=== PATIENT | male | born 1950 | race Caucasian/White ===

== ENCOUNTER 2019-07-03 15:23 | Emergency (ER) | payer OTHER ==
--- NOTE | 2019-07-03 16:11 | RAD REPORT ---
EXAM DESCRIPTION: CT - Head Brain Wo Cont - 07/03/2019 4:03 pm CLINICAL HISTORY: Fall, head and facial trauma COMPARISON: None. TECHNIQUE: Axial 5 mm thick images of the head were obtained without IV contrast. All CT scans are performed using dose optimization technique as appropriate and may include automated exposure control or mA/KV adjustment according to patient size. FINDINGS: No intracranial hemorrhage, mass, edema or shift of mid-line structures. No acute infarcti on changes seen. No abnormal extra-axial fluid collections. Ventricles are normal. Atrophy is minimal . Chronic ischemic changes are mild as well. Mastoid air cells are clear. Orbits, sinuses and facial bones are separately detailed. No acute bony findings. IMPRESSION: No acute intracranial finding. Atrophy is minimal and chronic ischemic changes are mild. Chronic ischemic change can mask nonhemorrhagic CVA. Based on history, acute CVA is not suspected.
--- NOTE | 2019-07-03 16:13 | RAD REPORT ---
EXAM DESCRIPTION: CT - Facial Bones W/ Mpr - 07/03/2019 4:04 pm CLINICAL HISTORY: Fall, head and face injury COMPARISON: None. TECHNIQUE: Axial 2 millimeter thick images of the facial bones were obtained with sagittal and coron al reconstruction imaging. All CT scans are performed using dose optimization technique as appropriate and may include automated exposure control or mA/KV adjustment according to patient size. FINDINGS: Mastoid air cells are clear. No skullbase fracture. Condyles of the mandible are normally positioned. No mandible fracture seen. There are no air-fluid levels in the paranasal sinuses. Globes and orbital contents are normal. Patient has a nondisplaced nasal bone fracture with contusion and edema changes to the overlying soft tissues. No foreign body. Nasal septum remains in the midline. IMPRESSION: Nondisplaced nasal bone fracture with overlying soft tissue contusion/ edema. No other significant finding.
[2019-07-03] MEDS ORDERED: BUPIVACAINE 0.5% PF 10 ML VIAL ONE (16:43)
[2019-07-03] MEDS ORDERED: LIDOCAINE 1% MPF 5 ML VIAL ONE (16:43)
--- NOTE | 2019-07-03 16:43 | RAD REPORT ---
EXAM DESCRIPTION: RAD - Humerus Left - 07/03/2019 3:58 pm CLINICAL HISTORY: Fall, arm and shoulder pain COMPARISON: None. FINDINGS: No fracture is identified. Degenerative cystic changes are present in the humeral head. No gross abnormality of the AC joint. Elbow joint degenerative changes are present. There is no disloca tion or periosteal reaction noted. No foreign body or other soft tissue abnormality. IMPRESSION: Degenerative change in the left arm as detailed. No fracture, dislocation or acute findi ng seen.
--- NOTE | 2019-07-03 16:45 | RAD REPORT ---
EXAM DESCRIPTION: RAD - Hand Left 3 View - 07/03/2019 4:01 pm CLINICAL HISTORY: Fall, left hand pain COMPARISON: None. FINDINGS: No acute fractures seen. No dislocation or periosteal reaction. Patient has degenerative c hange at the trapezial first metacarpal articulation as well is prominent degenerative change at the IP joint of the thumb. Degenerative change and possibly old trauma change at the DIP joint and distal phalanx fifth digit. Mild degenerative changes elsewhere in the MCP and IP joints of the hand. No fo reign body or other soft tissue abnormality. IMPRESSION: Left hand degenerative changes as detailed. No acute finding.
--- NOTE | 2019-07-03 17:33 | ER ---
Nurse's Notes [facility] Name: Luca Grimes Age: 69 yrs Sex: Male : 1950 Arrival Date: 07/03/2019 Time: 15:24 Bed 6 Private MD: Ochoa Anderson B Diagnosis: Fall on and from stairs and steps;Laceration without foreign body of left ring finger without damage to nail;Abrasion of nose;Fracture of nasal bones Presentation: 07/03 15:36 Presenting complaint: Patient states: fall off 1 step due to dog pulling leash, fell sr5 forward to ground. Denies LOC. Reports blood thinners, aspirin. c/o pain LEFT hand, LEFT shoulder, bridge of nose abrasion. Care prior to arrival: None. Mechanism of Injury: Fall down 1 steps. Trauma event details: Injury occurred in the [facility], Injury occurred: at home. Injury occurred: July 03, 2019 Injury occurred at: 15:00. 15:36 Acuity: MARY 2 sr5 15:36 Method Of Arrival: Wheelchair sr5 15:40 Transition of care: patient was not received from another setting of care. Onset of jl7 symptoms was July 03, 2019. Risk Assessment: Do you want to hurt yourself or someone else? Patient reports no desire to harm self or others. Initial Sepsis Screen: Does the patient meet any 2 criteria? No. Patient's initial sepsis screen is negative. Does the patient have a suspected source of infection? No. Patient's initial sepsis screen is negative. Trauma Activation: Alert Physician: ED Physician; Name: ; Notified At: ; Arrived At: Physician: General Surgeon; Name: ; Notified At: ; Arrived At: Physician: Radiology; Name: ; Notified At: ; Arrived At: Physician: Respiratory; Name: ; Notified At: ; Arrived At: Physician: Lab; Name: ; Notified At: ; Arrived At: Historical: - Allergies: 16:18 Codeine; jl7 - Home Meds: 16:18 Hydrochlorothiazide Oral [Active]; losartan oral oral [Active]; Metoprolol Tartrate jl7 Oral [Active]; aspirin 81 mg Oral chew [Active]; atorvastatin oral oral [Active]; duloxetine oral oral [Active]; tamsulosin 0.4 mg oral cp24 [Active]; Spironolactone Oral [Active]; Metformin Oral [Active]; - PMHx: 16:18 Hypertension; High Cholesterol; Diabetes - NIDDM; jl7 - Immunization history: Last tetanus immunization: - up to date. - Social history:: Smoking status: Patient/guardian denies using tobacco. - Ebola Screening: : No symptoms or risks identified at this time. Screenin:40 Abuse screen: Denies threats or abuse. Denies injuries from another. Tuberculosis jl7 screening: No symptoms or risk factors identified. 16:19 Nutritional screening: No deficits noted. Fall Risk Fall in past 12 months (25 points). jl7 Total White Fall Scale indicates Low Risk Score (25-44 pts). Fall prevention measures have been instituted. Side Rails Up X 2 Placed close to Nursing Station Frequent Obs/Assesments occuring Family Present and informed to notify staff if they need to leave bedside As available Patient and Family Educated on Fall Prevention Program and strategies. Primary Survey: 15:40 NO uncontrolled hemorrhage observed. A: Airway: patent. Breathing/Chest: Respiratory jl7 pattern: regular, Respiratory effort: spontaneous, unlabored, Chest inspection: symmetrical rise and fall of the chest. Circulation: Skin color: pink, Skin temperature: warm. Disability Alert. Exposure/Environment: There is no evidence of uncontrolled external bleeding. Obvious injury(ies) are noted at this time: laceration noted to bridge of nose and to tip of left ring finger. 15:55 Reassessment Breathing/Chest Respiratory pattern Regular Respiratory effort Spontaneous jl7 Unlabored Breath sounds Clear Chest inspection Symmetrical. Assessment: 15:36 General: Appears in no apparent distress. Behavior is calm, cooperative. Pain: sr5 Complains of pain in left hand, left arm and nose Pain currently is 8 out of 10 on a pain scale. 16:30 Reassessment: Patient appears in no apparent distress at this time. No changes from jl7 previously documented assessment. Patient and/or family updated on plan of care and expected duration. Pain level reassessed. Patient is alert, oriented x 3, equal unlabored respirations, skin warm/dry/pink. Vital Signs: 15:39 BP 153 / 86; Pulse 66; Resp 14; Temp 98.6; Pulse Ox 97% on R/A; Weight 113.4 kg (M); sr5 Height 6 ft. 3 in. (190.50 cm); Pain 8/10; 16:18 BP 118 / 85; Pulse 63; Resp 16 S; Pulse Ox 97% on R/A; Pain 5/10; jl7 17:14 BP 146 / 88; Pulse 56; Resp 16 S; Pulse Ox 96% on R/A; jl7 15:39 Body Mass Index 31.25 (113.40 kg, 190.50 cm) sr5 Roland Coma Score: 15:39 Eye Response: spontaneous(4). Verbal Response: oriented(5). Motor Response: obeys sr5 commands(6). Total: 15. 16:19 Eye Response: spontaneous(4). Verbal Response: oriented(5). Motor Response: obeys jl7 commands(6). Total: 15. 17:14 Eye Response: spontaneous(4). Verbal Response: oriented(5). Motor Response: obeys jl7 commands(6). Total: 15. Trauma Score (Adult): 15:39 Eye Response: spontaneous(1); Verbal Response: oriented(1); Motor Response: obeys sr5 commands(2); Systolic BP: > 89 mm Hg(4); Respiratory Rate: 10 to 29 per min(4); Carlee Score: 15; Trauma Score: 12 ED Course: 15:24 Patient arrived in ED. rg4 15:24 Ochoa Anderson MD is Private Physician. rg4 15:38 Triage completed. sr5 15:40 Patient has correct armband on for positive identification. Bed in low position. Call jl7 light in reach. Side rails up X 1. 15:40 Arm band placed on right wrist. jl7 15:40 Patient maintains SpO2 saturation greater than 95% on room air. Thermoregulation: pt jl7 refuses warm blanket at this time. 15:42 Elizabeth Leahy FNP-C is PHCP. kb 15:43 Franck Zhong MD is Attending Physician. kb 15:49 Kristin Hoover RN is Primary Nurse. jl7 15:59 Humerus Left XRAY In Process Unspecified. EDMS 15:59 Hand Left 3 View XRAY In Process Unspecified. EDMS 16:03 CT Head Brain wo Cont In Process Unspecified. EDMS 16:04 CT Facial Bones W/O Con In Process Unspecified. EDMS 17:00 Wound care: to abrasion, located on bridge of nose was cleaned with Hibiclens, dressed jl7 with Neosporin, band aid, Patient tolerated well. 17:47 Wound care: to located on proximal phalanx of left ring finger was dressed with tube em1 gauze. 18:06 Assist provider with laceration repair on palmar aspect of distal phalanx of left ring jl7 finger that was 2.5 cm. or less using sutures. Set up tray. Performed by Elizabeht GARRIDO Dressed with 4X4s, Patient tolerated well. Patient did not have IV access during this emergency room visit. Administered Medications: 17:00 Drug: Lidocaine (1 %) 5 mg {Note: administered by ASHLEY Johnson.} Volume: 5 ml; Route: jl7 Infiltration; 17:19 Follow up: Response: No adverse reaction jl7 17:00 Drug: Bupivacaine (0.5 %) 5 ml {Note: Administered by ASHLEY Johnson.} Volume: 10 ml; jl7 Route: Infiltration; 17:19 Follow up: Response: No adverse reaction jl7 18:06 Drug: Augmentin 875 mg Route: PO; jl7 18:06 Follow up: Response: Medication administered at discharge. jl7 Intake: 18:08 PO: 0ml; IV: 0ml; Tubes: 0ml (); Total: 0ml. jl7 Output: 18:08 Urine: 0ml; Gastric: 0ml; Stool: 0; EBL: 0ml; Drainage: 0ml; Other: 0; Total: 0ml. jl7 Outcome: 17:31 Discharge ordered by . shelbie 18:06 Discharged to home via wheelchair, with family. jl7 18:06 Condition: stable 18:06 Discharge instructions given to patient, family, Instructed on discharge instructions, follow up and referral plans. medication usage, Demonstrated understanding of instructions, follow-up care, medications, Prescriptions given X 1. 18:08 Patient's length of stay was not longer than 2 hours. jl7 18:08 Patient left the ED. jl7 Signatures: Dispatcher [employer] EDMS Elizabeth Leahy FNP-C FNP-Ckb Martinez, Eric em1 Greg Newberry, RN RN Neyda Infante4 Kristin Hoover RN RN jl7
--- NOTE | 2019-07-03 17:34 | EDPHYS ---
Physician Documentation [facility] Name: Luca Grimes Age: 69 yrs Sex: Male : 1950 Arrival Date: 07/03/2019 Time: 15:24 Bed 6 Private MD: Ochoa Anderson B ED Physician Franck Zhong HPI: 07/03 17:11 This 69 yrs old Male presents to ER via Wheelchair with complaints of Fall kb Injury. 17:11 Details of fall: The patient fell from a height, down approximately 1 stairs. Onset: kb The symptoms/episode began/occurred just prior to arrival. Associated injuries: The patient sustained injury to the head, abrasion, pain, palmar aspect of distal phalanx of left ring finger, laceration. Severity of symptoms: At their worst the symptoms were mild, in the emergency department the symptoms are unchanged. The patient has not experienced similar symptoms in the past. The patient has not recently seen a physician. Pt reports he was taking the dog out for a walk and it pulled the leash causing him to fall. Reports abrasion to nose, laceration to left ring finger. Historical: - Allergies: 16:18 Codeine; jl7 - Home Meds: 16:18 Hydrochlorothiazide Oral [Active]; losartan oral oral [Active]; Metoprolol Tartrate jl7 Oral [Active]; aspirin 81 mg Oral chew [Active]; atorvastatin oral oral [Active]; duloxetine oral oral [Active]; tamsulosin 0.4 mg oral cp24 [Active]; Spironolactone Oral [Active]; Metformin Oral [Active]; - PMHx: 16:18 Hypertension; High Cholesterol; Diabetes - NIDDM; jl7 - Immunization history: Last tetanus immunization: - up to date. - Social history:: Smoking status: Patient/guardian denies using tobacco. - Ebola Screening: : No symptoms or risks identified at this time. ROS: 16:59 Constitutional: Negative for fever, chills, and weight loss, Neck: Negative for injury, kb pain, and swelling, Cardiovascular: Negative for chest pain, palpitations, and edema, Respiratory: Negative for shortness of breath, cough, wheezing, and pleuritic chest pain, Abdomen/GI: Negative for abdominal pain, nausea, vomiting, diarrhea, and constipation, Back: Negative for injury and pain, : Negative for injury, bleeding, discharge, and swelling, Neuro: Negative for headache, weakness, numbness, tingling, and seizure. 16:59 MS/extremity: Positive for laceration, of the palmar aspect of distal phalanx of left ring finger. 16:59 Skin: Positive for abrasion(s), of the bridge of nose. Exam: 17:02 Constitutional: This is a well developed, well nourished patient who is awake, alert, kb and in no acute distress. ENT: Nares patent. No nasal discharge, no septal abnormalities noted. Tympanic membranes are normal and external auditory canals are clear. Oropharynx with no redness, swelling, or masses, exudates, or evidence of obstruction, uvula midline. Mucous membranes moist. Neck: Trachea midline, no thyromegaly or masses palpated, and no cervical lymphadenopathy. Supple, full range of motion without nuchal rigidity, or vertebral point tenderness. No Meningismus. Chest/axilla: Normal chest wall appearance and motion. Nontender with no deformity. No lesions are appreciated. Cardiovascular: Regular rate and rhythm with a normal S1 and S2. No gallops, murmurs, or rubs. Normal PMI, no JVD. No pulse deficits. Respiratory: Lungs have equal breath sounds bilaterally, clear to auscultation and percussion. No rales, rhonchi or wheezes noted. No increased work of breathing, no retractions or nasal flaring. Abdomen/GI: Soft, non-tender, with normal bowel sounds. No distension or tympany. No guarding or rebound. No evidence of tenderness throughout. Back: No spinal tenderness. No costovertebral tenderness. Full range of motion. MS/ Extremity: Pulses equal, no cyanosis. Neurovascular intact. Full, normal range of motion. Neuro: Awake and alert, GCS 15, oriented to person, place, time, and situation. Cranial nerves II-XII grossly intact. Motor strength 5/5 in all extremities. Sensory grossly intact. Cerebellar exam normal. Normal gait. 17:02 Head/face: Noted is no obvious of injury or deformity except abrasion(s), that are mild, of the bridge of nose. 17:02 Skin: injury, laceration(s), the wound is approximately 2 cm(s), of the palmar aspect of distal phalanx of left ring finger, that can be described as clean, no foreign body, linear, without bleeding. Vital Signs: 15:39 BP 153 / 86; Pulse 66; Resp 14; Temp 98.6; Pulse Ox 97% on R/A; Weight 113.4 kg (M); sr5 Height 6 ft. 3 in. (190.50 cm); Pain 8/10; 16:18 BP 118 / 85; Pulse 63; Resp 16 S; Pulse Ox 97% on R/A; Pain 5/10; jl7 17:14 BP 146 / 88; Pulse 56; Resp 16 S; Pulse Ox 96% on R/A; jl7 15:39 Body Mass Index 31.25 (113.40 kg, 190.50 cm) sr5 [place] Coma Score: 15:39 Eye Response: spontaneous(4). Verbal Response: oriented(5). Motor Response: obeys sr5 commands(6). Total: 15. 16:19 Eye Response: spontaneous(4). Verbal Response: oriented(5). Motor Response: obeys jl7 commands(6). Total: 15. 17:14 Eye Response: spontaneous(4). Verbal Response: oriented(5). Motor Response: obeys jl7 commands(6). Total: 15. Trauma Score (Adult): 15:39 Eye Response: spontaneous(1); Verbal Response: oriented(1); Motor Response: obeys sr5 commands(2); Systolic BP: > 89 mm Hg(4); Respiratory Rate: 10 to 29 per min(4); [place] Score: 15; Trauma Score: 12 Procedures: 16:57 Nerve block: (digital) of palmar aspect of proximal phalanx of left ring finger kb Medication: Lidocaine 1% without epinephrine Marcaine 0.5%, Amount: 5 mls were injected, Effect: the patient has resolution of the pain, Set up for procedure. Performed by Elizabeth GARRIDO Patient tolerated well. Laceration: 17:30 Wound Repair of 2cm ( 0.8in ) subcutaneous laceration to palmar aspect of distal kb phalanx of left ring finger. Distal neuro/vascular/tendon intact. Anesthesia: Digital block administered with 1% lidocaine. Wound prep: Extensive cleansing with hibiclenz by pr, Wound irrigation with saline by pr. Skin closed with 4 5-0 Prolene using simple sutures and sterile technique. Dressed with Neosporin, tube gauze. Patient tolerated well. MDM: 15:43 Patient medically screened. kb 16:58 Data reviewed: vital signs, nurses notes. Data interpreted: Pulse oximetry: on room air kb is 97 %. Interpretation: normal. 17:31 Counseling: I had a detailed discussion with the patient and/or guardian regarding: the kb historical points, exam findings, and any diagnostic results supporting the discharge/admit diagnosis, radiology results, the need for outpatient follow up, a family practitioner, to return to the emergency department if symptoms worsen or persist or if there are any questions or concerns that arise at home. 07/03 15:50 Order name: CT Head Brain wo Cont; Complete Time: 16:19 kb 07/03 15:50 Order name: CT Facial Bones W/O Con; Complete Time: 16:19 kb 07/03 15:50 Order name: Humerus Left XRAY; Complete Time: 16:47 kb 07/03 15:50 Order name: Hand Left 3 View XRAY; Complete Time: 16:56 kb 07/03 16:27 Order name: Wound Care; Complete Time: 17:10 kb 07/03 17:18 Order name: Dressing - Wound; Complete Time: 17:47 jl7 07/03 17:18 Order name: Gloves, Sterile; Complete Time: 17:18 jl7 07/03 17:18 Order name: Setup Suture Tray; Complete Time: 17:18 jl7 Administered Medications: 17:00 Drug: Lidocaine (1 %) 5 mg {Note: administered by ASHLEY Johnson.} Volume: 5 ml; Route: jl7 Infiltration; 17:19 Follow up: Response: No adverse reaction jl7 17:00 Drug: Bupivacaine (0.5 %) 5 ml {Note: Administered by Elizabeth TEACHERS AIDE.} Volume: 10 ml; jl7 Route: Infiltration; 17:19 Follow up: Response: No adverse reaction jl7 18:06 Drug: Augmentin 875 mg Route: PO; jl7 18:06 Follow up: Response: Medication administered at discharge. 7 Disposition: 19:09 Co-signature as Attending Physician, Franck Zhong MD. rn Disposition: 07/03/19 17:31 Discharged to Home. Impression: Fall on and from stairs and steps, Laceration without foreign body of left ring finger without damage to nail, Abrasion of nose, Fracture of nasal bones. - Condition is Stable. - Discharge Instructions: Laceration Care, Adult, [id number], Nasal Fracture, [id number]. - Prescriptions for Augmentin 875- 125 mg Oral Tablet - take 1 tablet by ORAL route every 12 hours for 10 days; 20 tablet. - Medication Reconciliation Form, Thank You Letter, Antibiotic Education, Prescription Opioid Use form. - Follow up: Emergency Department; When: As needed; Reason: Worsening of condition. Follow up: Private Physician; When: 2 - 3 days; Reason: Recheck today's complaints, Continuance of care, Re-evaluation by your physician. Signatures: Dispatcher [employer] EDMS Elizabeth Leahy, TAX SENIOR ASSOCIATE-C TAX SENIOR ASSOCIATE-CkFranck Martínez MD MD rn Reseckdeedee, Greg RN RN sr5 Kristin Hoover RN RN jl7 Corrections: (The following items were deleted from the chart) 17:30 17:02 Skin: injury, laceration(s), the wound is approximately 1 cm(s), of the palmar kb aspect of distal phalanx of left ring finger, that can be described as clean, no foreign body, linear, without bleeding, kb 18:08 17:31 07/03/2019 17:31 Discharged to Home. Impression: Fall on and from stairs and jl7 steps; Laceration without foreign body of left ring finger without damage to nail; Abrasion of nose; Fracture of nasal bones. Condition is Stable. Forms are Medication Reconciliation Form, Thank You Letter, Antibiotic Education, Prescription Opioid Use. Follow up: Emergency Department; When: As needed; Reason: Worsening of condition. Follow up: Private Physician; When: 2 - 3 days; Reason: Recheck today's complaints, Continuance of care, Re-evaluation by your physician. kb
[2019-07-03] MEDS ORDERED: AMOX/K CLAV 875 MG TAB ONE (17:53)
[2019-07-03 19:51] VITALS: TEMP 98.6
[2019-07-03 19:54] VITALS: BP 146/88; O2SAT 96
== END 2019-07-03 18:08 | disposition home or self-care (01) ==
LOC: ER 15:23
PROC: 0JQK0ZZ Repair Left Hand Subcutaneous Tissue and Fascia, Open Approach (ICD-10-PCS; principal; 2019-07-03)
DX: S02.2XXA Fracture of nasal bones, initial encounter for closed fracture (principal); S61.215A Laceration without foreign body of left ring finger without damage to nail, initial encounter; W10.8XXA Fall (on) (from) other stairs and steps, initial encounter; Y93.K1 Activity, walking an animal; Y92.9 Unspecified place or not applicable; I10 Essential (primary) hypertension; E11.9 Type 2 diabetes mellitus without complications; Z88.5 Allergy status to narcotic agent
CPT/HCPCS: 64450; 70450; 70486; 76377; 99284

== ENCOUNTER 2019-09-16 16:36 | Emergency (ER) | payer OTHER ==
[2019-09-16] MEDS ORDERED: CEFTRIAXONE/SWI 1gm 1 GM/10 ML SYR ONE (17:53)
[2019-09-16] MEDS ORDERED: HYDROMORPHONE HCL 1 MG/ML INJ ONE ×2 (17:53→19:18)
[2019-09-16] MEDS ORDERED: KETOROLAC 30 MG/ML INJ ONE (17:53)
[2019-09-16] MEDS ORDERED: NA CHLORIDE 0.9% 1,000 ML ONE ×2 (17:53→19:18)
[2019-09-16] MEDS ORDERED: ONDANSETRON 4 MG/2 ML VIAL ONE ×2 (17:53→19:18)
[2019-09-16 18:14] LABS: Hematocrit 38.9 % (39.6-49.0); Lymphocytes % 9.5 % (15.3-44.8); MPV 9.1 fL (7.6-11.3)
[2019-09-16 18:30] LABS: Albumin 3.9 g/dL (3.4-5.0); Bilirubin Direct 0.2 mg/dL (0-0.2); Bilirubin Total 0.7 mg/dL (0.2-1.0); Potassium 4.1 mmol/L (3.5-5.1); Protein, Total 7.6 g/dL (6.4-8.2)
--- NOTE | 2019-09-16 18:37 | RAD REPORT ---
EXAM DESCRIPTION: CT - Stone Protocol - 09/16/2019 6:24 pm CLINICAL HISTORY: Flank pain. ABD PAIN COMPARISON: No comparisons TECHNIQUE: Axial images were obtained without oral or IV contrast. Lack of contrast limits solid org an and vascular assessment. The [id number] spans the entirety of the system partially obscuring uppermost abdomen and lung bases. Coronal reformatted images were obtained and reviewed. All CT scans are performed using dose optimization technique as appropriate and may include automated exposure control or mA/KV adjustment according to patient size. FINDINGS: The lower lung gale are clear. Imaged portions of the liver and spleen show no suspicious findings on non-contrast imaging. The panc reas and adrenal glands are normal. No pathologic lymphadenopathy in the abdomen or pelvis. Multiple small stones, numbering between 4-5, additional punctate calculi are also present inferior c alices of the right kidney. Each measuring 1-2 mm are present in the region of the distal right urete r and right UVJ resulting in mild right hydronephrosis. No left-sided urinary tract calculus or hydro nephrosis. Several benign renal cysts are present bilaterally. No bowel obstruction, free air, free fluid or abscess. Normal appendix noted.Prostate gland is quite prominent and projects into bladder base. Several lymph nodes are present along the anterior pelvic s idewall, largest on the right measuring 10 mm in short axis. Small bilateral fat containing inguinal hernias. Advanced lumbar degenerative changes are present. IMPRESSION: Multiple small calculi are present in the distal right ureter and right UVJ resulting in mild right hydronephrosis. Prostate gland appears enlarged several mildly prominent anterior pelvic sidewall lymph nodes. Sugges t correlation with PSA level. Moderate lumbar degenerative changes.
[2019-09-16] MEDS ORDERED: TAMSULOSIN 0.4 MG SR CAP ONE (19:18)
[2019-09-16 20:42] LABS: Urine Blood TRACE (NEG); Urine Glucose NEGATIVE (NEG); Urine Protein NEGATIVE (NEG); Urine Specific Gravity 1.025 (1.005-1.030)
--- NOTE | 2019-09-16 20:52 | ER ---
Nurse's Notes [facility] Name: Luca Grimes Age: 69 yrs Sex: Male : 1950 Arrival Date: 09/16/2019 Time: 16:39 Bed 16 Private MD: Diagnosis: Hydronephrosis with renal and ureteral calculous obstruction;Unspecified kidney failure-insufficency Presentation: 09/15 16:51 Chief complaint: Patient states: R flank pain that began 1 hour ago. Coronavirus ss screen: The patient has NOT traveled to a country currently being monitored by the [facility] within the last 14 days. Proceed with normal triage procedures. Ebola Screen: Patient denies exposure to infectious person. Patient denies travel to an Ebola-affected area in the 21 days before illness onset. Initial Sepsis Screen: Does the patient meet any 2 criteria? No. Patient's initial sepsis screen is negative. Does the patient have a suspected source of infection? No. Patient's initial sepsis screen is negative. Risk Assessment: Do you want to hurt yourself or someone else? Patient reports no desire to harm self or others. 16:51 Method Of Arrival: Wheelchair ss 16:51 Acuity: MARY 2 ss Historical: - Allergies: 16:53 Codeine; ss - PMHx: 16:53 Diabetes - NIDDM; High Cholesterol; Hypertension; ss - Immunization history:: Adult Immunizations up to date. - Social history:: Smoking status: Patient denies any tobacco usage or history of. - Family history:: not pertinent. Screenin:11 Abuse screen: Denies threats or abuse. Nutritional screening: No deficits noted. tw2 Tuberculosis screening: No symptoms or risk factors identified. Fall Risk Secondary diagnosis (15 points) impaired mobility. Assessment: 17:08 General: Appears uncomfortable, Behavior is anxious, fussy, restless. Pain: Complains tw2 of pain in right low back and right mid back. Neuro: Level of Consciousness is awake, alert, obeys commands, Oriented to person, place, time, situation. Cardiovascular: Heart tones S1 S2 Capillary refill < 3 seconds Patient's skin is warm and dry. Respiratory: Airway is patent Respiratory effort is even, unlabored, Respiratory pattern is regular, symmetrical, Breath sounds are clear bilaterally. GI: Abdomen is round obese, Bowel sounds present X 4 quads. Reports lower abdominal pain, upper abdominal pain. : Urine is cloudy. EENT: No signs and/or symptoms were reported regarding the EENT system. Derm: No signs and/or symptoms reported regarding the dermatologic system. Musculoskeletal: Range of motion: intact in all extremities. 18:32 Reassessment: Patient appears in no apparent distress at this time. Patient and/or tw2 family updated on plan of care and expected duration. Pain level reassessed. Patient is alert, oriented x 3, equal unlabored respirations, skin warm/dry/pink. Patient states feeling better. 19:43 Reassessment: Patient appears in no apparent distress at this time. Patient and/or mg2 family updated on plan of care and expected duration. Pain level reassessed. Patient is alert, oriented x 3, equal unlabored respirations, skin warm/dry/pink. Vital Signs: 16:51 BP 181 / 93; Pulse 60; Resp 20; Temp 97.6; Pulse Ox 100% on R/A; Weight 113.4 kg; ss Height 6 ft. 4 in. (193.04 cm); Pain 10/10; 18:10 BP 188 / 102; Pulse 57; Resp 17; Pulse Ox 95% on 2 lpm NC; tw2 18:49 BP 156 / 87; Pulse 61; Resp 17; Pulse Ox 95% on 2 lpm NC; tw2 19:00 BP 171 / 89; Pulse 66; Resp 18; Pulse Ox 95% on R/A; mg2 16:51 Body Mass Index 30.43 (113.40 kg, 193.04 cm) ED Course: 16:39 Patient arrived in ED. ag5 16:53 Triage completed. ss 16:53 Arm band placed on right wrist. ss 17:04 Bed in low position. Call light in reach. Adult w/ patient. Pulse ox on. NIBP on. tw2 17:07 Bandar Roy MD is Attending Physician. ramona 17:20 Vivien Argueta RN is Primary Nurse. tw2 17:55 Inserted saline lock: 20 gauge in right antecubital area, using aseptic technique. tw2 Blood collected. 18:25 CT Stone Protocol In Process Unspecified. EDMS 20:51 Kiersten Medina MD is Referral Physician. ramona 21:12 Abdomen 1 View (KUB) XRAY In Process Unspecified. EDMS Administered Medications: 17:55 Drug: NS 0.9% 1000 ml Route: IV; Rate: 1 bolus; Site: right antecubital; tw2 17:55 Drug: Zofran (Ondansetron) 4 mg Route: IVP; Site: right antecubital; tw2 19:02 Follow up: Response: No adverse reaction tw2 17:58 Drug: Dilaudid 1 mg Route: IVP; Site: right antecubital; tw2 18:35 Follow up: Response: No adverse reaction; Pain is decreased tw2 17:59 Drug: TORadol 30 mg Route: IVP; Site: right antecubital; tw2 19:02 Follow up: Response: No adverse reaction tw2 18:00 Drug: Rocephin 1 grams Route: IV; Rate: per protocol; Site: right antecubital; tw2 18:05 Follow up: Response: No adverse reaction; IV Status: Completed infusion tw2 19:19 Drug: Zofran (Ondansetron) 4 mg Route: IVP; Site: right antecubital; mg2 20:54 Follow up: Response: No adverse reaction mg2 19:20 Drug: NS 0.9% 1000 ml Route: IV; Rate: 1 bolus; Site: right antecubital; mg2 20:55 Follow up: Response: No adverse reaction; IV Status: Completed infusion; IV Intake: mg2 1000ml 19:20 Drug: Dilaudid 1 mg Route: IVP; Site: right antecubital; mg2 20:54 Follow up: Response: No adverse reaction mg2 19:20 Drug: Flomax 0.4 mg Route: PO; mg2 20:54 Follow up: Response: No adverse reaction mg2 21:15 Drug: [place] 10 mg-325 mg 1 tabs {Note: given as home meds.} Route: PO; mg2 21:16 Follow up: Response: No adverse reaction mg2 21:16 Drug: Cipro 500 mg {Note: given as home meds.} Route: PO; mg2 21:16 Follow up: Response: No adverse reaction mg2 Intake: 20:55 IV: 1000ml; Total: 1000ml. mg2 Outcome: 20:51 Discharge ordered by MD. greene 21:35 Patient left the ED. mg2 Signatures: Dispatcher [employer] EDBandar Pitt MD MD cha Smirch, Shelby, RN RN Vivien Argueta RN RN tw2 Anton Guzman, RN RN mg2 Karlie, Carina ag5
--- NOTE | 2019-09-16 20:53 | EDPHYS ---
Physician Documentation [facility] Name: Luca Grimes Age: 69 yrs Sex: Male : 1950 Arrival Date: 09/16/2019 Time: 16:39 Bed 16 Private MD: ED Physician Bandar Roy HPI: 09/15 17:45 This 69 yrs old Male presents to ER via Wheelchair with complaints of Back ramona Pain, Side Pain. 17:45 The patient presents with pain that is acute, and tenderness. The symptoms are located ramona in the right mid back and right low back. Onset: The symptoms/episode began/occurred just prior to arrival. The pain radiates to the right mid back and right low back. Associated signs and symptoms: The patient has no apparent associated signs or symptoms. Modifying factors: The patient symptoms are alleviated by nothing, the patient symptoms are aggravated by nothing. Severity of symptoms: At their worst the symptoms were moderate, in the emergency department the symptoms are unchanged. The patient has not experienced similar symptoms in the past. Historical: - Allergies: 16:53 Codeine; ss - PMHx: 16:53 Diabetes - NIDDM; High Cholesterol; Hypertension; ss - Immunization history:: Adult Immunizations up to date. - Social history:: Smoking status: Patient denies any tobacco usage or history of. - Family history:: not pertinent. ROS: 17:45 Constitutional: Negative for fever, chills, and weight loss, Eyes: Negative for injury, ramona pain, redness, and discharge, ENT: Negative for injury, pain, and discharge, Neck: Negative for injury, pain, and swelling, Cardiovascular: Negative for chest pain, palpitations, and edema, Respiratory: Negative for shortness of breath, cough, wheezing, and pleuritic chest pain, : Negative for injury, bleeding, discharge, and swelling, MS/Extremity: Negative for injury and deformity, Skin: Negative for injury, rash, and discoloration, Neuro: Negative for headache, weakness, numbness, tingling, and seizure, Psych: Negative for depression, anxiety, suicide ideation, homicidal ideation, and hallucinations, Allergy/Immunology: Negative for hives, rash, and allergies, Endocrine: Negative for neck swelling, polydipsia, polyuria, polyphagia, and marked weight changes, Hematologic/Lymphatic: Negative for swollen nodes, abnormal bleeding, and unusual bruising. 17:45 Abdomen/GI: Positive for abdominal pain, nausea. 17:45 Back: Positive for pain at rest, pain with movement, flank pain, on the right. Exam: 17:45 Constitutional: This is a well developed, well nourished patient who is awake, alert, ramona and in no acute distress. Head/Face: Normocephalic, atraumatic. Eyes: Pupils equal round and reactive to light, extra-ocular motions intact. Lids and lashes normal. Conjunctiva and sclera are non-icteric and not injected. Cornea within normal limits. Periorbital areas with no swelling, redness, or edema. ENT: Nares patent. No nasal discharge, no septal abnormalities noted. Tympanic membranes are normal and external auditory canals are clear. Oropharynx with no redness, swelling, or masses, exudates, or evidence of obstruction, uvula midline. Mucous membranes moist. Neck: Trachea midline, no thyromegaly or masses palpated, and no cervical lymphadenopathy. Supple, full range of motion without nuchal rigidity, or vertebral point tenderness. No Meningismus. Chest/axilla: Normal chest wall appearance and motion. Nontender with no deformity. No lesions are appreciated. Cardiovascular: Regular rate and rhythm with a normal S1 and S2. No gallops, murmurs, or rubs. Normal PMI, no JVD. No pulse deficits. Respiratory: Lungs have equal breath sounds bilaterally, clear to auscultation and percussion. No rales, rhonchi or wheezes noted. No increased work of breathing, no retractions or nasal flaring. Male : Normal genitalia with no discharge or lesions. Skin: Warm, dry with normal turgor. Normal color with no rashes, no lesions, and no evidence of cellulitis. MS/ Extremity: Pulses equal, no cyanosis. Neurovascular intact. Full, normal range of motion. Neuro: Awake and alert, GCS 15, oriented to person, place, time, and situation. Cranial nerves II-XII grossly intact. Motor strength 5/5 in all extremities. Sensory grossly intact. Cerebellar exam normal. Normal gait. Psych: Awake, alert, with orientation to person, place and time. Behavior, mood, and affect are within normal limits. 17:45 Abdomen/GI: Inspection: abdomen appears normal, Bowel sounds: normal, Palpation: nontender, Liver: no appreciated palpable abnormalities, Hernia: not appreciated. Vital Signs: 16:51 BP 181 / 93; Pulse 60; Resp 20; Temp 97.6; Pulse Ox 100% on R/A; Weight 113.4 kg; ss Height 6 ft. 4 in. (193.04 cm); Pain 10/10; 18:10 BP 188 / 102; Pulse 57; Resp 17; Pulse Ox 95% on 2 lpm NC; tw2 18:49 BP 156 / 87; Pulse 61; Resp 17; Pulse Ox 95% on 2 lpm NC; tw2 19:00 BP 171 / 89; Pulse 66; Resp 18; Pulse Ox 95% on R/A; mg2 16:51 Body Mass Index 30.43 (113.40 kg, 193.04 cm) ss MDM: 17:07 Patient medically screened. [facility] 17:49 Data reviewed: vital signs, nurses notes, lab test result(s), radiologic studies, CT [facility] scan. 09/15 17:43 Order name: Basic Metabolic Panel; Complete Time: 19:08 [facility] 09/15 17:43 Order name: CBC with Diff; Complete Time: 19:08 [facility] 09/15 17:43 Order name: Creatinine for Radiology; Complete Time: 19:08 [facility] 09/15 17:43 Order name: Hepatic Function; Complete Time: 19:08 [facility] 09/15 17:43 Order name: Lipase; Complete Time: 19:08 [facility] 09/15 17:43 Order name: Urine Culture [facility] 09/15 18:00 Order name: CT Stone Protocol; Complete Time: 19:08 [facility] 09/15 19:09 Order name: Urine Dipstick--Ancillary (enter results); Complete Time: 20:50 09/15 20:51 Order name: Abdomen 1 View (KUB) XRAY [facility] 09/15 17:43 Order name: IV Saline Lock; Complete Time: 18:32 [facility] 09/15 17:43 Order name: Labs collected and sent; Complete Time: 18:32 [facility] 09/15 17:43 Order name: Urine Dipstick-Ancillary (obtain specimen); Complete Time: 18:31 [facility] Administered Medications: 17:55 Drug: NS 0.9% 1000 ml Route: IV; Rate: 1 bolus; Site: right antecubital; tw2 17:55 Drug: Zofran (Ondansetron) 4 mg Route: IVP; Site: right antecubital; tw2 19:02 Follow up: Response: No adverse reaction tw2 17:58 Drug: Dilaudid 1 mg Route: IVP; Site: right antecubital; tw2 18:35 Follow up: Response: No adverse reaction; Pain is decreased tw2 17:59 Drug: TORadol 30 mg Route: IVP; Site: right antecubital; tw2 19:02 Follow up: Response: No adverse reaction tw2 18:00 Drug: Rocephin 1 grams Route: IV; Rate: per protocol; Site: right antecubital; tw2 18:05 Follow up: Response: No adverse reaction; IV Status: Completed infusion tw2 19:19 Drug: Zofran (Ondansetron) 4 mg Route: IVP; Site: right antecubital; mg2 20:54 Follow up: Response: No adverse reaction mg2 19:20 Drug: NS 0.9% 1000 ml Route: IV; Rate: 1 bolus; Site: right antecubital; mg2 20:55 Follow up: Response: No adverse reaction; IV Status: Completed infusion; IV Intake: mg2 1000ml 19:20 Drug: Dilaudid 1 mg Route: IVP; Site: right antecubital; mg2 20:54 Follow up: Response: No adverse reaction mg2 19:20 Drug: Flomax 0.4 mg Route: PO; mg2 20:54 Follow up: Response: No adverse reaction mg2 21:15 Drug: [place] 10 mg-325 mg 1 tabs {Note: given as home meds.} Route: PO; mg2 21:16 Follow up: Response: No adverse reaction mg2 21:16 Drug: Cipro 500 mg {Note: given as home meds.} Route: PO; mg2 21:16 Follow up: Response: No adverse reaction mg2 Disposition: 09/16/19 20:51 Discharged to Home. Impression: Hydronephrosis with renal and ureteral calculous obstruction, Unspecified kidney failure - insufficency. - Condition is Stable. - Discharge Instructions: Kidney Stones, Kidney Stones, [id number], Hydronephrosis, Dietary Guidelines to Help Prevent Kidney Stones. - Prescriptions for Zofran 4 mg Oral Tablet - take 1 tablet by ORAL route every 12 hours As needed; 20 tablet. Flomax 0.4 mg Oral Capsule, Sust. Release 24 hr - take 1 capsule by ORAL route once daily 1/2 hour following the same meal each day; 30 capsule. Cipro 500 mg Oral Tablet - take 1 tablet by ORAL route every 12 hours for 7 days; 14 tablet. Tramadol 50 mg Oral Tablet - take 1 tablet by ORAL route every 8 hours as needed; 26 tablet. - Medication Reconciliation Form, Thank You Letter, Antibiotic Education, Prescription Opioid Use, Work release form form. - Follow up: Private Physician; When: 5 - 6 days; Reason: Recheck today's complaints, Continuance of care, Re-evaluation by your physician. Follow up: Kiersten Medina; When: 2 - 3 days; Reason: Recheck today's complaints, Re-evaluation by your physician. - Problem is new. - Symptoms have improved. Signatures: Dispatcher [employer] EDBandar Pitt MD MD cha Smirch, Shelby, RN RN ss Vivien Argueta RN RN tw2 Anton Guzman RN RN mg2 Corrections: (The following items were deleted from the chart) 20:52 20:51 09/16/2019 20:51 Discharged to Home. Impression: Hydronephrosis with renal and ramona ureteral calculous obstruction. Condition is Stable. Discharge Instructions: Kidney Stones, Kidney Stones, [id number], Hydronephrosis, Dietary Guidelines to Help Prevent Kidney Stones. Prescriptions for Zofran 4 mg Oral Tablet - take 1 tablet by ORAL route every 12 hours As needed; 20 tablet, Flomax 0.4 mg Oral Capsule, Sust. Release 24 hr - take 1 capsule by ORAL route once daily 1/2 hour following the same meal each day; 30 capsule, Cipro 500 mg Oral Tablet - take 1 tablet by ORAL route every 12 hours for 7 days; 14 tablet, Tramadol 50 mg Oral Tablet - take 1 tablet by ORAL route every 8 hours as needed; 26 tablet. and Forms are Work release form, Medication Reconciliation Form, Thank You Letter, Antibiotic Education, Prescription Opioid Use. Follow up: Private Physician; When: 5 - 6 days; Reason: Recheck today's complaints, Continuance of care, Re-evaluation by your physician. Follow up: Kiersten Medina; When: 2 - 3 days; Reason: Recheck today's complaints, Re-evaluation by your physician. Problem is new. Symptoms have improved. ramona 21:35 20:52 09/16/2019 20:51 Discharged to Home. Impression: Hydronephrosis with renal and mg2 ureteral calculous obstruction; Unspecified kidney failure - insufficency. Condition is Stable. Discharge Instructions: Kidney Stones, Kidney Stones, [id number], Hydronephrosis, Dietary Guidelines to Help Prevent Kidney Stones. Prescriptions for Zofran 4 mg Oral Tablet - take 1 tablet by ORAL route every 12 hours As needed; 20 tablet, Flomax 0.4 mg Oral Capsule, Sust. Release 24 hr - take 1 capsule by ORAL route once daily 1/2 hour following the same meal each day; 30 capsule, Cipro 500 mg Oral Tablet - take 1 tablet by ORAL route every 12 hours for 7 days; 14 tablet, Tramadol 50 mg Oral Tablet - take 1 tablet by ORAL route every 8 hours as needed; 26 tablet. and Forms are Work release form, Medication Reconciliation Form, Thank You Letter, Antibiotic Education, Prescription Opioid Use. Follow up: Private Physician; When: 5 - 6 days; Reason: Recheck today's complaints, Continuance of care, Re-evaluation by your physician. Follow up: Kiersten Medina; When: 2 - 3 days; Reason: Recheck today's complaints, Re-evaluation by your physician. Problem is new. Symptoms have improved. ramona
[2019-09-16] MEDS ORDERED: CIPROFLOXACIN HCL 500 MG TAB ONE (21:04)
[2019-09-16] MEDS ORDERED: HYDROCODONE/APAP 10/325 TAB ONE (21:05)
--- NOTE | 2019-09-16 21:59 | RAD REPORT ---
EXAM DESCRIPTION: RAD - Abdomen 1 View (KUB) - 09/16/2019 9:15 pm CLINICAL HISTORY: ABD PAIN Pain COMPARISON: Stone Protocol dated 09/16/2019 FINDINGS: The bowel gas pattern is non-obstructive. No evidence of free air or pneumatosis. The nathaly ent's tiny known calcifications on recent CT in the distal right ureter are not well appreciated on p hitesh radiograph. Moderate degenerative levoscoliosis of the lumbar spine.
[2019-09-16 22:28] VITALS: TEMP 97.6
[2019-09-16 22:31] VITALS: O2SAT 95
[2019-09-16 22:34] VITALS: BP 171/89
== END 2019-09-16 21:35 | disposition home or self-care (01) ==
LOC: ER 16:36
DX: N13.2 Hydronephrosis with renal and ureteral calculous obstruction (principal); N28.9 Disorder of kidney and ureter, unspecified; Z88.6 Allergy status to analgesic agent
CPT/HCPCS: 96361; 87088; 85025; 87086; 80048; 36415; 80076; 81003; 83690; 76377; 74176; 74018; 96375; 96374; 99284; J1170 ×2; J0696; J7030 ×2; J2405 ×2

== ENCOUNTER 2020-11-13 21:05 | Emergency (ER) | payer OTHER ==
[2020-11-13 21:22] LABS: Absolute Lymphocytes (CBC) 1.6 K/uL (0.7-4.9); Basophils % 0.7 % (0-1.3); Hematocrit 38.2 % (39.6-49.0); MPV 9.1 fL (7.6-11.3); RBC Red Blood Cell Count 4.53 M/uL (4.33-5.43)
[2020-11-13 21:28] LABS: Protime INR 0.99
--- NOTE | 2020-11-13 21:30 | RAD REPORT ---
EXAM DESCRIPTION: RAD - Chest Single View - 11/13/2020 9:24 pm CLINICAL HISTORY: CHEST PAIN Chest pain. COMPARISON: <Comparisons> FINDINGS: Portable technique limits examination quality. The lungs are grossly clear. The heart is mildly enlarged in size. No displaced fractures. IMPRESSION: No acute intrathoracic process suspected.
[2020-11-13 21:39] LABS: ALT/SGPT 22 U/L (12-78); AST/SGOT 13 U/L (15-37); Albumin 3.5 g/dL (3.4-5.0); Alkaline Phosphatase 76 U/L (45-117); BUN Blood Urea Nitrogen 32 mg/dL (7-18); Bicarbonate 27 mmol/L (21-32); Bilirubin Direct 0.2 mg/dL (0-0.2); Bilirubin Total 0.6 mg/dL (0.2-1.0); Glucose Level 140 mg/dL (74-106); Magnesium 1.7 mg/dL (1.8-2.4); NT PRO-BNP 148 pg/mL (<125); Potassium 3.9 mmol/L (3.5-5.1); Protein, Total 6.8 g/dL (6.4-8.2); Sodium Level 138 mmol/L (136-145); Troponin (Emerg Dept Use Only) < 0.02 ng/mL (0.0-0.045)
--- NOTE | 2020-11-13 23:00 | ER ---
Nurse's Notes [facility] Name: Luca Grimes Age: 70 yrs Sex: Male : 1950 Arrival Date: 11/13/2020 Time: 21:06 Bed 2 Private MD: Diagnosis: Dizziness and giddiness;Weakness Presentation: 11/13 21:12 Chief complaint: Patient states: Dizziness. Coronavirus screen: Client denies travel ad5 out of the [place] in the last 14 days. At this time, the client does not indicate any symptoms associated with coronavirus-19. Ebola Screen: Patient denies exposure to infectious person. Patient denies travel to an Ebola-affected area in the 21 days before illness onset. No symptoms or risks identified at this time. Initial Sepsis Screen: Does the patient meet any 2 criteria? No. Patient's initial sepsis screen is negative. Does the patient have a suspected source of infection? No. Patient's initial sepsis screen is negative. Risk Assessment: Do you want to hurt yourself or someone else? Patient reports no desire to harm self or others. Onset of symptoms was November 13, 2020 at 20:00. Care prior to arrival: IV initiated. 18 GA, in the left antecubital area, Oxygen administered. via nasal cannula, EKG by EMS tours captain, reports "afib and RBBB". 21:12 Method Of Arrival: EMS ad5 21:12 Acuity: MARY 3 ad5 Triage Assessment: 21:15 General: Appears in no apparent distress. comfortable, Behavior is calm, cooperative, ad5 appropriate for age. Pain: Denies pain. Historical: - Allergies: 21:15 Codeine; ad5 - PMHx: 21:15 Diabetes - NIDDM; High Cholesterol; Hypertension; ad5 - Immunization history:: Adult Immunizations up to date. - Social history:: Smoking status: Patient denies any tobacco usage or history of. Screenin:18 Abuse screen: Denies threats or abuse. Denies injuries from another. Nutritional ad5 screening: No deficits noted. Tuberculosis screening: No symptoms or risk factors identified. Fall Risk None identified. Fall in past 12 months (25 points). Secondary diagnosis (15 points) HTN, DM. IV access (20 points). Ambulatory Aid- None/Bed Rest/Nurse Assist (0 pts). Gait- Normal/Bed Rest/Wheelchair (0 pts) Mental Status- Oriented to own ability (0 pts). Total White Fall Scale indicates High Risk Score (45 or more points). Fall prevention measures have been instituted. Side Rails Up X 2 Placed Close to Nursing Station Frequent Obs/Assessments Occuring As available patient and family educated on Fall Prevention Program and Strategies. Assessment: 21:16 General: Appears in no apparent distress. comfortable, Behavior is calm, cooperative, ad5 appropriate for age. Pain: Denies pain. Neuro: No deficits noted. Level of Consciousness is awake, alert, obeys commands, Oriented to person, place, time, situation, Appropriate for age. Cardiovascular: No deficits noted. Reports lightheadedness, Denies chest pain, palpitations, shortness of breath, Heart tones S1 S2 present Capillary refill < 3 seconds Clubbing of nail beds is absent JVD is absent Patient's skin is warm and dry. Pulses are all present. Rhythm is regular Chest pain is denied. Respiratory: No deficits noted. Airway is patent Trachea midline Respiratory effort is even, unlabored, Respiratory pattern is regular, symmetrical. GI: No deficits noted. : No deficits noted. Pisano in place Urine is clear, blood tinged, pt with recent "kidney surgery" per EMS for kidney stone removal. EENT: No deficits noted. Derm: No deficits noted. Skin is pink, warm \\T\\ dry. Musculoskeletal: No deficits noted. 21:54 Reassessment: Patient appears in no apparent distress at this time. No changes from ad5 previously documented assessment. Patient and/or family updated on plan of care and expected duration. Pain level reassessed. Patient is alert, oriented x 3, equal unlabored respirations, skin warm/dry/pink. Patient denies pain at this time. 22:41 Reassessment: Patient and/or family updated on plan of care and expected duration. Pain ea level reassessed. Patient is alert, oriented x 3, equal unlabored respirations, skin warm/dry/pink. 23:07 Reassessment: Patient appears in no apparent distress at this time. No changes from ad5 previously documented assessment. Patient and/or family updated on plan of care and expected duration. Pain level reassessed. Patient is alert, oriented x 3, equal unlabored respirations, skin warm/dry/pink. Patient denies pain at this time. 23:37 Reassessment: Patient and/or family updated on plan of care and expected duration. Pain ea level reassessed. Patient is alert, oriented x 3, equal unlabored respirations, skin warm/dry/pink. Discharge instruction given to patient verbalized the understanding of instruction. pt left ED via wheelchari tolerating well. Vital Signs: 21:12 BP 163 / 106; Pulse 63; Resp 18 S; Temp 98.0; Pulse Ox 95% on R/A; Weight 112.49 kg; ad5 Height 6 ft. 4 in. (193.04 cm); Pain 0/10; 21:16 BP 163 / 106; Pulse 63; Resp 18 S; Temp 98.0; Pulse Ox 95% on R/A; ad5 22:08 BP 157 / 92; Pulse 57; Resp 16 S; Pulse Ox 94% on R/A; ad5 23:37 BP 156 / 90; Pulse 60; Resp 18 S; Pulse Ox 95% on R/A; Pain 0/10; ad5 21:12 Body Mass Index 30.19 (112.49 kg, 193.04 cm) ad5 ED Course: 21:06 Patient arrived in ED. mw2 21:07 Kaci Hopkins, GIOVANNA is Primary Nurse. wayne 21:08 Filippo Hunter MD is Attending Physician. tw4 21:15 Triage completed. ad5 21:16 Arm band placed on right wrist. ad5 21:19 Patient has correct armband on for positive identification. Placed in gown. Bed in low ad5 position. Call light in reach. Side rails up X2. athletic monitor on. Pulse ox on. NIBP on. Door closed. Noise minimized. Warm blanket given. 21:24 XRAY Chest (1 view) In Process Unspecified. EDMS 23:37 No provider procedures requiring assistance completed. IV discontinued, intact, ea bleeding controlled, No redness/swelling at site. Pressure dressing applied. Administered Medications: No medications were administered Outcome: 22:59 Discharge ordered by . tw4 23:38 Discharged to home via wheelchair, with significant other. ad5 23:38 Condition: stable 23:38 Discharge instructions given to patient, significant other, Instructed on discharge instructions, follow up and referral plans. Demonstrated understanding of instructions, follow-up care. 23:39 Patient left the ED. ad5 Signatures: Dispatcher [employer] EDMS Kaci Hopkins RN RN ea Wadley, Terrence, MD MD tw4 [place]hunk, Keesha mw2 Tristen Sunshine
--- NOTE | 2020-11-13 23:00 | EDPHYS ---
Physician Documentation [facility] Name: Luca Grimes Age: 70 yrs Sex: Male : 1950 Arrival Date: 11/13/2020 Time: 21:06 Bed 2 Private MD: ED Physician Filippo Hunter HPI: 11/13 21:09 This 70 yrs old Male presents to ER via Unassigned with complaints of tw4 dizziness. 21:09 The patient presents with dizziness, generalized weakness, lightheadedness. Onset: The tw4 symptoms/episode began/occurred just prior to arrival, today. Context: occurred at home, occurred while the patient was sitting. Modifying factors: The symptoms are alleviated by nothing, the symptoms are aggravated by nothing. Associated signs and symptoms: The patient has no apparent associated signs or symptoms, Pertinent positives:. Severity of symptoms: At their worst the symptoms were moderate in the emergency department the symptoms have resolved. Patient's baseline: Neuro: alert and fully oriented, Motor: no deficits, Ambulation: walks without assistance, Speech: normal. The patient has experienced similar episodes in the past, a few times. Historical: - Allergies: 21:15 Codeine; ad5 - PMHx: 21:15 Diabetes - NIDDM; High Cholesterol; Hypertension; ad5 - Immunization history:: Adult Immunizations up to date. - Social history:: Smoking status: Patient denies any tobacco usage or history of. ROS: 21:09 Constitutional: Negative for fever, chills, and weight loss, Eyes: Negative for injury, tw4 pain, redness, and discharge, Cardiovascular: Negative for chest pain, palpitations, and edema, Respiratory: Negative for shortness of breath, cough, wheezing, and pleuritic chest pain, Abdomen/GI: Negative for abdominal pain, nausea, vomiting, diarrhea, and constipation, Back: Negative for injury and pain, MS/Extremity: Negative for injury and deformity, Skin: Negative for injury, rash, and discoloration. 21:09 Neuro: Positive for dizziness, Negative for altered mental status, hearing loss, loss of consciousness, numbness, seizure activity, tinnitus, tremor, visual changes, weakness. Exam: 21:09 Constitutional: This is a well developed, well nourished patient who is awake, alert, tw4 and in no acute distress. Head/Face: Normocephalic, atraumatic. Neck: Trachea midline, no thyromegaly or masses palpated, and no cervical lymphadenopathy. Supple, full range of motion without nuchal rigidity, or vertebral point tenderness. No Meningismus. Chest/axilla: Normal chest wall appearance and motion. Nontender with no deformity. No lesions are appreciated. Cardiovascular: Regular rate and rhythm with a normal S1 and S2. No gallops, murmurs, or rubs. Normal PMI, no JVD. No pulse deficits. Respiratory: Lungs have equal breath sounds bilaterally, clear to auscultation and percussion. No rales, rhonchi or wheezes noted. No increased work of breathing, no retractions or nasal flaring. Abdomen/GI: Soft, non-tender, with normal bowel sounds. No distension or tympany. No guarding or rebound. No evidence of tenderness throughout. Back: No spinal tenderness. No costovertebral tenderness. Full range of motion. Skin: Warm, dry with normal turgor. Normal color with no rashes, no lesions, and no evidence of cellulitis. MS/ Extremity: Pulses equal, no cyanosis. Neurovascular intact. Full, normal range of motion. Neuro: Awake and alert, GCS 15, oriented to person, place, time, and situation. Cranial nerves II-XII grossly intact. Motor strength 5/5 in all extremities. Sensory grossly intact. Cerebellar exam normal. Normal gait. Vital Signs: 21:12 BP 163 / 106; Pulse 63; Resp 18 S; Temp 98.0; Pulse Ox 95% on R/A; Weight 112.49 kg; ad5 Height 6 ft. 4 in. (193.04 cm); Pain 0/10; 21:16 BP 163 / 106; Pulse 63; Resp 18 S; Temp 98.0; Pulse Ox 95% on R/A; ad5 22:08 BP 157 / 92; Pulse 57; Resp 16 S; Pulse Ox 94% on R/A; ad5 23:37 BP 156 / 90; Pulse 60; Resp 18 S; Pulse Ox 95% on R/A; Pain 0/10; ad5 21:12 Body Mass Index 30.19 (112.49 kg, 193.04 cm) ad5 MDM: 21:08 Patient medically screened. tw4 11/14 20:54 Data reviewed: vital signs, nurses notes. Data interpreted: Pulse oximetry: tw4 Interpretation: normal. Counseling: I had a detailed discussion with the patient and/or guardian regarding: the historical points, exam findings, and any diagnostic results supporting the discharge/admit diagnosis. 20:58 Differential diagnosis: cardiac arrhythmia, CVA, TIA, vertigo. Data reviewed: lab test tw4 result(s), CBC, electrolytes, radiologic studies, plain films. Special discussion: I discussed with the patient/guardian in detail that at this point there is no indication for admission to the hospital. It is understood, however, that if the symptoms persist or worsen the patient needs to return immediately for re-evaluation. 11/13 21:07 Order name: Basic Metabolic Panel 11/13 20: Order name: CBC with Diff 11/13: Order name: LFT's; Complete Time: 22:03 ea 11/13 22:03 Interpretation: Normal except: AST 13. tw4 11/13 21:07 Order name: Magnesium; Complete Time: 22:03 ea 11/13 22:03 Interpretation: Abnormal: MG 1.7. 11/13:07 Order name: NT PRO-BNP; Complete Time: 22:03 ea 11/13 22:04 Interpretation: Within normal limits: NT PRO-BNP 148. 11/13:07 Order name: PT-INR; Complete Time: 22:03 ea 11/13 22:04 Interpretation: Within normal limits: PT 11.4. 11/13 21:07 Order name: Troponin (emerg Dept Use Only); Complete Time: 22:03 ea 11/13 22:04 Interpretation: Within normal limits: TROPED < 0.02. 11/13:07 Order name: XRAY Chest (1 view); Complete Time: 22:03 11/13 22:04 Interpretation: No acute disease. 11/13: Order name: EKG; Complete Time: 21: ea 11/13 21:08 Order name: Cardiac monitoring; Complete Time: 21:17 ea 11/13 21:08 Order name: EKG - Nurse/Tech; Complete Time: 21:17 ea 11/13 21:08 Order name: IV Saline Lock; Complete Time: 21: ea 11/13 21:08 Order name: Basic Metabolic Panel; Complete Time: 22:03 EDMS 11/13 22:04 Interpretation: Normal except: GLUC 140; BUN 32; GFR 60. tw4 11/13 21:08 Order name: CBC with Automated Diff; Complete Time: 22:03 EDMS 11/13 22:04 Interpretation: Normal except: HGB 13.1; HCT 38.2. tw4 11/13 21:08 Order name: Labs collected and sent; Complete Time: : ea 11/13 21:08 Order name: O2 Per Protocol; Complete Time: ea 11/13 21:08 Order name: O2 Sat Monitoring; Complete Time: : ea EC/08 21:09 Rhythm is regular, 1st Degree Block. Left axis deviation noted. MO interval is tw4 prolonged at 226 msec. QRS interval is prolonged. QT interval is normal. No Q waves. T waves are Normal. Clinical impression: 1st degree heart block and RBBB. Interpreted by me. Reviewed by me. Administered Medications: No medications were administered Disposition: 11/13/20 22:59 Discharged to Home. Impression: Dizziness and giddiness, Weakness. - Condition is Stable. - Discharge Instructions: Dizziness, Weakness, Fatigue. - Medication Reconciliation Form, Thank You Letter, Antibiotic Education, Prescription Opioid Use form. - Follow up: Private Physician; When: Upon discharge from the Emergency Department; Reason: Recheck today's complaints, Continuance of care, Re-evaluation by your physician. - Problem is new. - Symptoms have improved. Signatures: Dispatcher [employer] EDMS Kaci Hopkins RN RN ea Wadley, Terrence, MD MD tw4 Tristen Sunshine ad5 Corrections: (The following items were deleted from the chart) 23:39 22:59 11/13/2020 22:59 Discharged to Home. Impression: Dizziness and giddiness; ad5 Weakness. Condition is Stable. Forms are Medication Reconciliation Form, Thank You Letter, Antibiotic Education, Prescription Opioid Use. Follow up: Private Physician; When: Upon discharge from the Emergency Department; Reason: Recheck today's complaints, Continuance of care, Re-evaluation by your physician. Problem is new. Symptoms have improved. tw4
[2020-11-14 03:46] VITALS: TEMP 98
[2020-11-14 03:51] VITALS: BP 156/90; O2SAT 95
--- NOTE | 2020-11-14 12:12 | EKG ---
Test Date: 2020-11-13 Test Time: 21:09:10 Environment Coordinator: MEASUREMENT RESULTS: Intervals: Rate: 61 IN: 226 QRSD: 170 QT: 472 QTc: 475 Timbo: P: 85 IN: 226 QRS: -60 T: 49 INTERPRETIVE STATEMENTS: Sinus rhythm with 1st degree AV block Left axis deviation Right bundle branch block Abnormal ECG Compared to ECG 05/17/2012 10:57:50 Left-axis deviation now present Right bundle-branch block now present Sinus bradycardia no longer present Electronically Signed On 11-14-20 12:11:45 CDT by Terrance Daily
== END 2020-11-13 23:39 | disposition home or self-care (01) ==
LOC: ER 21:05
DX: R42 Dizziness and giddiness (principal); R53.1 Weakness; E11.9 Type 2 diabetes mellitus without complications; E78.00 Pure hypercholesterolemia, unspecified; I10 Essential (primary) hypertension
CPT/HCPCS: 36415; 71045; 80048; 80076; 83735; 83880; 84484; 85025; 85610; 93005; 99284

== ENCOUNTER 2021-06-12 09:03 | Emergency (ER) | payer OTHER ==
[2021-06-12] MEDS ORDERED: NA CHLORIDE 0.9% 250 ML ONE (11:35)
[2021-06-12] MEDS ORDERED: CASIRIVIMAB/IMDEVIMAB 10 ML VIAL ONE (11:35)
--- NOTE | 2021-06-12 13:41 | ER ---
Nurse's Notes [facility] Name: Luca Grimes Age: 71 yrs Sex: Male : 1950 Arrival Date: 06/12/2021 Time: 09:06 Bed 10 Private MD: Diagnosis: Coronavirus infection, unspecified Presentation: 06/12 09:37 Chief complaint: Patient states: sore throat and cough that began 3 days ago. Pt ss reports his daughter that lives with him has covid, so he needs to make sure he does not have it before going back to work tomorrow. Coronavirus screen: Client denies travel out of the [place] in the last 14 days. Ebola Screen: Patient denies exposure to infectious person. Patient denies travel to an Ebola-affected area in the 21 days before illness onset. Initial Sepsis Screen: Does the patient meet any 2 criteria? No. Patient's initial sepsis screen is negative. Does the patient have a suspected source of infection? No. Patient's initial sepsis screen is negative. Risk Assessment: Do you want to hurt yourself or someone else? Patient reports no desire to harm self or others. Onset of symptoms was June 09, 2021. 09:37 Method Of Arrival: Ambulatory ss 09:37 Acuity: MARY 4 ss Historical: - Allergies: 09:39 Codeine; ss - PMHx: 09:39 Diabetes - NIDDM; High Cholesterol; Hypertension; ss - Immunization history:: Client reports having NOT received the Covid vaccine. - Social history:: Smoking status: Patient denies any tobacco usage or history of. Screenin:32 Abuse screen: Denies threats or abuse. Denies injuries from another. Nutritional ss screening: No deficits noted. Tuberculosis screening: Never had TB. Fall Risk None identified. Assessment: 10:23 General: Appears in no apparent distress. comfortable, Behavior is calm, cooperative, ss Denies fever. Respiratory: Reports cough that is Denies pain with respiration, pain with cough, pain with movement. : No signs and/or symptoms were reported regarding the genitourinary system. Derm: Skin is intact, is healthy with good turgor, Skin is dry, Skin is pink, warm \T\ dry. normal. 12:32 Reassessment: Patient appears in no apparent distress at this time. Patient and/or ss family updated on plan of care and expected duration. Pain level reassessed. REGERON infusion infusing. 13:15 Reassessment: Patient appears in no apparent distress at this time. Patient and/or ss family updated on plan of care and expected duration. Pain level reassessed. Patient is alert, oriented x 3, equal unlabored respirations, skin warm/dry/pink. Neuro: Level of Consciousness is awake, alert, obeys commands, Oriented to person, place, time, situation. Respiratory: Airway is patent Respiratory effort is even, unlabored, Respiratory pattern is regular, symmetrical. Derm: Skin is intact, is healthy with good turgor, Skin is dry, Skin is pink, warm \T\ dry. normal. 14:08 Reassessment: Patient appears in no apparent distress at this time. Patient and/or ss family updated on plan of care and expected duration. Pain level reassessed. Patient is alert, oriented x 3, equal unlabored respirations, skin warm/dry/pink. Pain: Denies pain. Neuro: Denies dizziness. Cardiovascular: Capillary refill < 3 seconds is brisk in bilateral fingers Patient's skin is warm and dry. GI: Patient currently denies nausea. EENT: Nares are clear. Vital Signs: 09:37 BP 152 / 102; Pulse 87; Resp 17; Temp 99.2(TE); Pulse Ox 97% on R/A; Weight 106.59 kg; ss Height 6 ft. 4 in. (193.04 cm); Pain 0/10; 14:00 BP 150 / 98; Pulse 82; Resp 17; Pulse Ox 96% on R/A; Pain 0/10; ss 09:37 Body Mass Index 28.60 (106.59 kg, 193.04 cm) ED Course: 09:06 Patient arrived in ED. as 09:39 Triage completed. ss 09:39 Arm band placed on left wrist. ss 09:45 Elizabeth Leahy FNP-C is [facility]. kb 09:45 Franck Zhong MD is Attending Physician. kb 10:37 Ashley Chavira RN is Primary Nurse. ss 12:01 Inserted saline lock: 20 gauge in left antecubital area, using aseptic technique. lt3 12:32 Patient has correct armband on for positive identification. Bed in low position. ss 14:09 No provider procedures requiring assistance completed. IV discontinued, intact, ss bleeding controlled, No redness/swelling at site. Pressure dressing applied. Administered Medications: 12:07 Drug: REGEN-COV Dose Pack 120 mg/mL-120 mg/mL (EUA) 1 application {Note: Medication ss given as pharmacy instructed.} Route: IV; Rate: calculated rate; Site: left antecubital; 13:07 Follow up: IV Status: Completed infusion ss Outcome: 13:40 Discharge ordered by . shelbie 14:09 Discharged to home ambulatory. 14:09 Condition: good 14:09 Discharge instructions given to patient, Instructed on discharge instructions, follow up and referral plans. Demonstrated understanding of instructions, follow-up care. 14:10 Patient left the ED. Signatures: Elizabeth Leahy, CANDY ATTENDANT-C CANDY ATTENDANT-Johanne Roland Shelby, GIOVANNA RN Debbi Mcdonald lt3 Corrections: (The following items were deleted from the chart) 14:11 10:23 Reassessment: [facility]
--- NOTE | 2021-06-12 13:41 | EDPHYS ---
Physician Documentation [facility] Name: Luca Grimes Age: 71 yrs Sex: Male : 1950 Arrival Date: 06/12/2021 Time: 09:06 Bed 10 Private MD: ED Physician Franck Zhong HPI: 06/12 13:39 This 71 yrs old Male presents to ER via Ambulatory with complaints of r/o covid. kb 13:39 The patient or guardian reports cough, that is intermittent, described as mild. Onset: kb The symptoms/episode began/occurred 2 day(s) ago. Severity of symptoms: At their worst the symptoms were mild, in the emergency department the symptoms are unchanged. Modifying factors: The symptoms are alleviated by nothing, the symptoms are aggravated by nothing. Associated signs and symptoms: Pertinent positives: sore throat, Pertinent negatives: chest pain, diarrhea, ear ache, fever, nausea, rhinorrhea, vomiting. The patient has not experienced similar symptoms in the past. The patient has not recently seen a physician. Patient states daughter has Covid. He started having cough and sore throat 2 days ago. Came in to see if he had Covid because yes go to work tomorrow.. Historical: - Allergies: 09:39 Codeine; ss - PMHx: 09:39 Diabetes - NIDDM; High Cholesterol; Hypertension; ss - Immunization history:: Client reports having NOT received the Covid vaccine. - Social history:: Smoking status: Patient denies any tobacco usage or history of. ROS: 13:38 Constitutional: Negative for fever, chills, and weight loss. kb 13:38 ENT: Positive for sore throat. 13:38 Respiratory: Positive for cough, Negative for dyspnea on exertion, hemoptysis, orthopnea, pleurisy, shortness of breath, sputum production, wheezing. 13:38 All other systems are negative. Exam: 13:38 Constitutional: This is a well developed, well nourished patient who is awake, alert, kb and in no acute distress. Head/Face: Normocephalic, atraumatic. ENT: Moist Mucous membranes Respiratory: Respirations even and unlabored. Speaking in full sentences. No increased work of breathing Skin: Warm, dry with normal turgor. Normal color. MS/ Extremity: Pulses equal, no cyanosis. Neurovascular intact. Full, normal range of motion. Neuro: Awake and alert, GCS 15, oriented to person, place, time, and situation. Moves all extremities. Normal gait. Psych: Awake, alert, with orientation to person, place and time. Behavior, mood, and affect are within normal limits. Vital Signs: 09:37 BP 152 / 102; Pulse 87; Resp 17; Temp 99.2(TE); Pulse Ox 97% on R/A; Weight 106.59 kg; ss Height 6 ft. 4 in. (193.04 cm); Pain 0/10; 14:00 BP 150 / 98; Pulse 82; Resp 17; Pulse Ox 96% on R/A; Pain 0/10; ss 09:37 Body Mass Index 28.60 (106.59 kg, 193.04 cm) ss MDM: 09:45 Patient medically screened. kb 13:37 Data reviewed: vital signs, nurses notes. Data interpreted: Pulse oximetry: on room air kb is 97 %. Interpretation: normal. Counseling: I had a detailed discussion with the patient and/or guardian regarding: the historical points, exam findings, and any diagnostic results supporting the discharge/admit diagnosis, lab results, the need for outpatient follow up, a family practitioner, to return to the emergency department if symptoms worsen or persist or if there are any questions or concerns that arise at home. 12 09:41 Order name: COVID-19 SARS RT PCR (Document "Date of Onset" if Symptomatic); Complete kb Time: 11:34 12 11:34 Order name: IV Start; Complete Time: 11:58 kb Administered Medications: 12:07 Drug: REGEN-COV Dose Pack 120 mg/mL-120 mg/mL (EUA) 1 application {Note: Medication ss given as pharmacy instructed.} Route: IV; Rate: calculated rate; Site: left antecubital; 13:07 Follow up: IV Status: Completed infusion ss Disposition: 15:27 Co-signature as Attending Physician, Franck Zhong MD I agree with the assessment and rn plan of care. Attestation: The patient's history, exam findings, diagnostics, and a summary of any interventions or procedures was reviewed in detail with Elizabeth GARRIDO. Disposition Summary: 06/12/21 13:40 Discharge Ordered Location: Home kb Condition: Stable kb Diagnosis - Coronavirus infection, unspecified kb Followup: kb - With: Emergency Department - When: As needed - Reason: Worsening of condition Followup: kb - With: Private Physician - When: 2 - 3 days - Reason: Recheck today's complaints, Continuance of care, Re-evaluation by your physician Discharge Instructions: - Discharge Summary Sheet kb - Viral Respiratory Infection, [id number] kb - COVID-19 kb Forms: - Medication Reconciliation Form kb - Thank You Letter kb - Antibiotic Education kb - Prescription Opioid Use kb Signatures: Dispatcher [employer] EDMS Elizabeth Leahy, LEGAL EXECUTIVE-C LEGAL EXECUTIVE-CkFranck Martínez MD MD rn Ashley Chavira RN RN ss Corrections: (The following items were deleted from the chart) 15:28 15:27 Co-signature as Attending Physician, Franck Zhong MD I agree with the seo intern and plan of care. Attestation: The patient's history, exam findings, diagnostics, and a summary of any interventions or procedures was reviewed in detail with Franck Zhong MD rn
[2021-06-12 14:29] VITALS: BP 152/102; TEMP 99.2; O2SAT 97
== END 2021-06-12 14:10 | disposition home or self-care (01) ==
LOC: ER 09:03
DX: U07.1 COVID-19 (principal); I10 Essential (primary) hypertension; Z88.5 Allergy status to narcotic agent
CPT/HCPCS: 96365; 99283; U0003; J7050

== ENCOUNTER 2021-12-03 19:47 | Emergency (ER) | payer OTHER ==
--- NOTE | 2021-12-03 23:17 | EDPHYS ---
Physician Documentation [facility] Name: Luca Grimes Age: 71 yrs Sex: Male : 1950 Arrival Date: 12/03/2021 Time: 19:51 Bed 10 Private MD: ED Physician Franck Zhong HPI: 12/03 22:06 This 71 yrs old Male presents to ER via Ambulatory with complaints of Cough, Sore pm1 Throat. 22:06 The patient or guardian reports cough, described as mild, with no sputum, sore throat. pm1 Onset: The symptoms/episode began/occurred 2 day(s) ago. Severity of symptoms: in the emergency department the symptoms have improved, mildly. Modifying factors: The symptoms are alleviated by prescription meds, Patient prescribed Levaquin and Claritin for sinusitis by PCP for his current symptoms, the symptoms are aggravated by nothing. Associated signs and symptoms: Pertinent negatives: chest pain, diarrhea, fever, nausea, vomiting, shortness of breath. The patient has been recently seen by a physician: 2 day(s) ago, with similar presenting complaints, and apparently given a diagnosis of sinusitis. Patient took home test of COVID today which came back positive. Historical: - Allergies: 20:17 Codeine; ld1 - PMHx: 20:17 High Cholesterol; Hypertension; Diabetes - NIDDM; ld1 - PSHx: 20:17 None; ld1 - Immunization history:: Adult Immunizations up to date, Client reports receiving the 2nd dose of the Covid vaccine. - Social history:: Smoking status: Patient denies any tobacco usage or history of. Patient/guardian denies using alcohol. ROS: 22:06 Constitutional: Negative for fever, chills, and weight loss. pm1 22:06 Cardiovascular: Negative for chest pain, palpitations, and edema. 22:06 Abdomen/GI: Negative for abdominal pain, nausea, vomiting, diarrhea, and constipation, Back: Negative for injury and pain, MS/Extremity: Negative for injury and deformity, Skin: Negative for injury, rash, and discoloration, Neuro: Negative for headache, weakness, numbness, tingling, and seizure. 22:06 ENT: Positive for sore throat, Negative for ear pain. 22:06 Respiratory: Positive for cough, Negative for shortness of breath. 22:06 All other systems are negative. Exam: 22:06 Constitutional: This is a well developed, well nourished patient who is awake, alert, pm1 and in no acute distress. Head/Face: Normocephalic, atraumatic. 22:06 Back: No spinal tenderness. No costovertebral tenderness. Full range of motion. Skin: Warm, dry with normal turgor. Normal color with no rashes, no lesions, and no evidence of cellulitis. MS/ Extremity: Pulses equal, no cyanosis. Neurovascular intact. Full, normal range of motion. 22:06 ENT: Exam is negative for acute changes, Mouth: Lips: normal, moist, Oral mucosa: normal, pink and intact, moist. 22:06 Respiratory: Exam negative for acute changes, the patient does not display signs of respiratory distress, Respirations: normal, Breath sounds: are clear throughout. 22:06 Abdomen/GI: Inspection: abdomen appears normal, Palpation: abdomen is soft and non-tender, in all quadrants. 22:06 Neuro: Exam negative for acute changes, Orientation: is normal, Motor: is normal, moves all fours, Gait: is steady, at a normal pace, without difficulty. Vital Signs: 20:17 BP 132 / 90; Pulse 80; Resp 18; Temp 98.1(O); Pulse Ox 98% on R/A; Weight 102.06 kg; ld1 Height 6 ft. 4 in. (193.04 cm); Pain 0/10; 21:11 BP 122 / 91; Pulse 62; Resp 18; Temp 98.3; Pulse Ox 98% on R/A; Pain 0/10; fu 22:30 BP 142 / 92; Pulse 108; Resp 18; Pulse Ox 100% on R/A; Pain 0/10; fu 20:17 Body Mass Index 27.39 (102.06 kg, 193.04 cm) ld1 MDM: 20:29 Patient medically screened. pm1 23:15 Data reviewed: vital signs. Data interpreted: Pulse oximetry: on room air is 98 %. pm1 Interpretation: normal. Counseling: I had a detailed discussion with the patient and/or guardian regarding: the historical points, exam findings, and any diagnostic results supporting the discharge/admit diagnosis, lab results, the need for outpatient follow up, to return to the emergency department if symptoms worsen or persist or if there are any questions or concerns that arise at home. 12/03 20:15 Order name: Strep; Complete Time: 22:02 pm1 12/03 20:15 Order name: COVID-19 SARS RT PCR (Document "Date of Onset" if Symptomatic); Complete pm1 Time: 22:54 12/03 20:16 Order name: Flu; Complete Time: 22:02 pm1 12/03 21:37 Order name: Throat Culture EDMS Administered Medications: No medications were administered Disposition Summary: 12/03/21 23:16 Discharge Ordered Location: Home pm1 Problem: new pm1 Symptoms: have improved pm1 Condition: Stable pm1 Diagnosis - Coronavirus infection, unspecified pm1 Followup: pm1 - With: Emergency Department - When: As needed - Reason: Worsening of condition Followup: pm1 - With: Private Physician - When: 2 - 3 days - Reason: Recheck today's complaints, Continuance of care, Re-evaluation by your physician Discharge Instructions: - Discharge Summary Sheet pm1 - COVID-19 pm1 - COVID-19 Frequently Asked Questions pm1 - 10 Things You Can Do to Manage Your COVID-19 Symptoms at Home - [facility] pm1 - COVID-19: Quarantine vs. Isolation - [facility] pm1 Forms: - Medication Reconciliation Form pm1 - Thank You Letter pm1 - Antibiotic Education pm1 - Prescription Opioid Use pm1 - Work release form fu Prescriptions: - Paxlovid - take 3 tablet by ORAL route every 12 hours for 5 days 300 mg nirmatrelvir plus pm1 100 mg ritonavir PO BID x 5 days; 1 packet; Refills: 0, Product Selection Permitted Addendum: 12/04/2021 23:56 Co-signature as Attending Physician, Franck Zhong MD. sade n Signatures: Dispatcher [employer] EDMS Franck Zhong MD MD rn Marinas, Patrick, COMPUTER TECH COMPUTER TECH pm1 Frida Penn RN RN ld1
--- NOTE | 2021-12-03 23:17 | ER ---
Nurse's Notes [facility] Name: Luca Grimes Age: 71 yrs Sex: Male : 1950 Arrival Date: 12/03/2021 Time: 19:51 Bed 10 Private MD: Diagnosis: Coronavirus infection, unspecified Presentation: 12/03 20:17 Chief complaint: Patient states: COVID + = cough and sore throat X 4 days. Coronavirus ld1 screen: Client presents with at least one sign or symptom that may indicate coronavirus-19. Standard/surgical mask placed on the client. Ebola Screen: No symptoms or risks identified at this time. Initial Sepsis Screen: Does the patient meet any 2 criteria? No. Patient's initial sepsis screen is negative. Does the patient have a suspected source of infection? No. Patient's initial sepsis screen is negative. Risk Assessment: Do you want to hurt yourself or someone else? Patient reports no desire to harm self or others. Onset of symptoms was December 03, 2021. 20:17 Method Of Arrival: Ambulatory ld1 20:17 Acuity: MARY 3 ld1 Triage Assessment: 20:17 General: Appears in no apparent distress. comfortable, Behavior is calm, cooperative, ld1 appropriate for age. Pain: Denies pain. EENT: No signs and/or symptoms were reported regarding the EENT system. Neuro: Level of Consciousness is awake, alert, obeys commands, Oriented to person, place, time, situation. Cardiovascular: Capillary refill < 3 seconds Patient's skin is warm and dry. Respiratory: Airway is patent Respiratory effort is even, unlabored. Respiratory: Reports cough that is non-productive. GI: Abdomen is flat, non-distended. Historical: - Allergies: 20:17 Codeine; ld1 - PMHx: 20:17 High Cholesterol; Hypertension; Diabetes - NIDDM; ld1 - PSHx: 20:17 None; ld1 - Immunization history:: Adult Immunizations up to date, Client reports receiving the 2nd dose of the Covid vaccine. - Social history:: Smoking status: Patient denies any tobacco usage or history of. Patient/guardian denies using alcohol. Screenin:11 Abuse screen: Denies threats or abuse. Nutritional screening: No deficits noted. fu Tuberculosis screening: No symptoms or risk factors identified. Fall Risk None identified. Assessment: 21:06 General: Appears in no apparent distress. Behavior is calm, cooperative, appropriate fu for age. Pain: Complains of pain in throat Pain does not radiate. Neuro: Level of Consciousness is awake, alert, obeys commands, Oriented to person, place, time, situation, Gait is steady, Speech is normal, Facial symmetry appears normal. Respiratory: Respiratory effort is even, Respiratory pattern is regular, Breath sounds are clear bilaterally. 22:31 Reassessment: No changes from previously documented assessment. Patient is alert, fu oriented x 3, equal unlabored respirations, skin warm/dry/pink. 23:46 EENT: Throat. fu Vital Signs: 20:17 BP 132 / 90; Pulse 80; Resp 18; Temp 98.1(O); Pulse Ox 98% on R/A; Weight 102.06 kg; ld1 Height 6 ft. 4 in. (193.04 cm); Pain 0/10; 21:11 BP 122 / 91; Pulse 62; Resp 18; Temp 98.3; Pulse Ox 98% on R/A; Pain 0/10; fu 22:30 BP 142 / 92; Pulse 108; Resp 18; Pulse Ox 100% on R/A; Pain 0/10; fu 20:17 Body Mass Index 27.39 (102.06 kg, 193.04 cm) ld1 ED Course: 19:51 Patient arrived in ED. ja2 20:04 James Burnett NP is PHCP. pm1 20:04 Franck Zhong MD is Attending Physician. pm1 20:17 Triage completed. ld1 20:17 Arm band placed on right wrist. ld1 20:51 Gary Claire, GIOVANNA is Primary Nurse. fu 21:06 Strep Sent. fu 21:06 COVID-19 SARS RT PCR (Document "Date of Onset" if Symptomatic) Sent. fu 21:06 Flu Sent. fu 21:12 Patient has correct armband on for positive identification. Bed in low position. Call fu light in reach. Pulse ox on. NIBP on. 23:45 No provider procedures requiring assistance completed. Patient did not have IV access fu during this emergency room visit. Administered Medications: No medications were administered Medication: 23:46 VIS not applicable for this client. fu Outcome: 23:16 Discharge ordered by . pm1 23:46 Discharged to home ambulatory. fu 23:46 Condition: good 23:46 Discharge instructions given to patient, Instructed on discharge instructions, follow up and referral plans. Demonstrated understanding of instructions, follow-up care, Prescriptions given X 1. 23:47 Patient left the ED. fu Signatures: James Burnett, DIRECTOR GLOBAL DIRECTOR GLOBAL pm1 Gary Claire RN RN Frida Penn RN RN ld1 Holly Miranda Corrections: (The following items were deleted from the chart) 21:23 21:06 Pain: Complains of pain in throat Pain does not radiate. Pain currently is 3 out fu of 10 on a pain scale. fu
[2021-12-03 23:56] VITALS: TEMP 98.3
[2021-12-03 23:57] VITALS: BP 142/92; O2SAT 100
== END 2021-12-03 23:47 | disposition home or self-care (01) ==
LOC: ER 19:47
DX: U07.1 COVID-19 (principal); E11.9 Type 2 diabetes mellitus without complications; I10 Essential (primary) hypertension; Z88.5 Allergy status to narcotic agent
CPT/HCPCS: 87070; 87081; 87804 ×2; 99283; U0003

== ENCOUNTER 2022-02-18 11:03 | Emergency (ER) | payer OTHER ==
[2022-02-18 12:05] LABS: Absolute Lymphocytes (CBC) 1.2 K/uL (0.7-4.9); Hematocrit 38.8 % (39.6-49.0); Lymphocytes % 20.3 % (15.3-44.8); MPV 8.2 fL (7.6-11.3); RBC Red Blood Cell Count 4.52 M/uL (4.33-5.43)
[2022-02-18] MEDS ORDERED: CEFAZOLIN SODIUM 1 GM/VIAL ONE (12:14)
[2022-02-18] MEDS ORDERED: NA CHLORIDE 0.9% 500 ML ONE (12:15)
[2022-02-18] MEDS ORDERED: CLINDAMYCIN 900MG/D5W 900 MG/50 ML IVPB IV ONE (12:15)
[2022-02-18] MEDS ORDERED: CEPHALEXIN 250 MG CAP ONE (12:15)
[2022-02-18] MEDS ORDERED: NA CHLORIDE 0.9% 0 ML ONE (12:15)
[2022-02-18 12:25] LABS: Albumin 3.7 g/dL (3.4-5.0); Bilirubin Total 0.5 mg/dL (0.2-1.0); Potassium 4.3 mmol/L (3.5-5.1); Protein, Total 7.1 g/dL (6.4-8.2)
--- NOTE | 2022-02-18 12:58 | RAD REPORT ---
EXAM DESCRIPTION: RAD - Foot Right 3 View - 02/18/2022 12:31 pm CLINICAL HISTORY: Right foot pain FINDINGS: No fracture or dislocation is seen Postsurgical changes first metatarsal. No bony destructive lesions seen
[2022-02-18] MEDS ORDERED: SILVER SULFADIAZINE 1% 25 GM TOP ONE (13:23)
[2022-02-18] MEDS ORDERED: TETANUS & DIPHTHERIA TOX,ADULT 0.5 ML VIAL ONE ×2 (13:23→13:46)
--- NOTE | 2022-02-18 13:27 | ER ---
Nurse's Notes [facility] Name: Luca Grimes Age: 71 yrs Sex: Male : 1950 Arrival Date: 02/18/2022 Time: 11:06 Bed 8 Private MD: Diagnosis: Cellulitis of right toe;Cellulitis of right lower limb-foot;Type 2 diabetes mellitus with hyperglycemia Presentation: 02/18 11:12 Chief complaint: Patient states: Wound to right big toe X 1 day. Pt reports having ld1 diabetes. Coronavirus screen: At this time, the client does not indicate any symptoms associated with coronavirus-19. Ebola Screen: No symptoms or risks identified at this time. Initial Sepsis Screen: Does the patient meet any 2 criteria? No. Patient's initial sepsis screen is negative. Does the patient have a suspected source of infection? No. Patient's initial sepsis screen is negative. Risk Assessment: Do you want to hurt yourself or someone else? Patient reports no desire to harm self or others. Onset of symptoms was February 18, 2022. 11:12 Method Of Arrival: Ambulatory ld1 11:12 Acuity: MARY 3 ld1 Triage Assessment: 11:11 General: Appears in no apparent distress. comfortable, Behavior is calm, cooperative, ld1 appropriate for age. Pain: Denies pain. EENT: No signs and/or symptoms were reported regarding the EENT system. Neuro: Level of Consciousness is awake, alert, obeys commands, Oriented to person, place, time, situation. Cardiovascular: Capillary refill < 3 seconds Patient's skin is warm and dry. Rhythm is regular. Respiratory: Airway is patent Respiratory effort is even, unlabored. GI: Abdomen is flat, non-distended. Historical: - Allergies: 11:11 Codeine; ld1 - PMHx: 11:11 Diabetes - NIDDM; High Cholesterol; Hypertension; ld1 - PSHx: 11:11 None; ld1 - Immunization history:: Adult Immunizations up to date, Client reports having NOT received the Covid vaccine. - Social history:: Smoking status: Patient denies any tobacco usage or history of. Patient/guardian denies using alcohol. - Family history:: not pertinent. Screenin:21 Abuse screen: Denies threats or abuse. Denies injuries from another. Nutritional jg9 screening: No deficits noted. Tuberculosis screening: No symptoms or risk factors identified. Fall Risk None identified. Assessment: 12:00 Reassessment: Patient appears in no apparent distress at this time. No changes from jg9 previously documented assessment. Patient and/or family updated on plan of care and expected duration. Pain level reassessed. Patient is alert, oriented x 3, equal unlabored respirations, skin warm/dry/pink. Musculoskeletal: No deficits noted. 12:00 General: Appears in no apparent distress. Behavior is calm, cooperative. Pain: jg9 Complains of pain in right first toe Pain currently is 3 out of 10 on a pain scale. Neuro: No deficits noted. Cardiovascular: No deficits noted. Respiratory: No deficits noted. GI: No deficits noted. : No deficits noted. EENT: No deficits noted. 12:45 Reassessment: Patient up using the bathroom, patient wanted to get up and go-denied any jg9 Hx of falling. 13:00 Reassessment: No changes from previously documented assessment. Patient and/or family jg9 updated on plan of care and expected duration. Pain level reassessed. Patient is alert, oriented x 3, equal unlabored respirations, skin warm/dry/pink. Vital Signs: 11:11 BP 155 / 104; Pulse 77; Resp 18; Temp 97.8(O); Pulse Ox 99% on R/A; Weight 102.06 kg; ld1 Height 6 ft. 4 in. (193.04 cm); Pain 0/10; 12:10 BP 151 / 91; Pulse 64; Resp 18 S; Pulse Ox 98% ; Pain 3/10; jg9 13:30 BP 145 / 91; Pulse 59; Resp 17 S; Pulse Ox 100% ; jg9 11:11 Body Mass Index 27.39 (102.06 kg, 193.04 cm) ld1 ED Course: 11:06 Patient arrived in ED. mr 11:11 Arm band placed on right wrist. ld1 11:13 Triage completed. ld1 11:23 Bandar Roy MD is Attending Physician. [facility] 11:57 Inserted saline lock: 20 gauge in right antecubital area, using aseptic technique. mb7 Blood collected. 11:58 Bed in low position. Call light in reach. Side rails up X 1. Door closed. Noise mb7 minimized. 12:04 Sophie Watson, GIOVANNA is Primary Nurse. jg9 12:33 Foot Right 3 View XRAY In Process Unspecified. EDMS 13:12 HgA1c Sent. j9 13:25 Cordell Gautam DPM is Referral Physician. [facility] 13:45 Wound care:. jg9 13:49 No provider procedures requiring assistance completed. jg9 13:51 IV discontinued. jg9 Administered Medications: 12:10 Drug: KeFLEX (cephalexin) 500 mg Route: PO; jg9 13:12 Follow up: Response: No adverse reaction j9 12:15 Drug: NS 0.9% 500 ml Route: IV; Rate: bolus; Site: right antecubital; j9 13:15 Follow up: IV Status: Completed infusion; IV Intake: 500ml j9 12:16 Drug: Clindamycin 900 mg Route: IVPB; Infused Over: 30 mins; Site: right antecubital; j9 12:50 Follow up: IV Status: Completed infusion; IV Intake: 50ml j9 13:01 Follow up: Response: No adverse reaction; IV Status: Completed infusion [facility] 13:02 Follow up: Response: No adverse reaction [facility] 13:01 Drug: Ancef (cefazolin) 1 grams Route: IVPB; Site: right antecubital; [facility] 13:44 Follow up: IV Status: Completed infusion; IV Intake: 50ml j9 13:27 Drug: Silver SulfADIAZINE Cream 1 % 1 application {Note: right great toe.} Route: jg9 Topical; Site: affected area; 13:28 Follow up: Response: No adverse reaction j9 13:28 Not Given (patient dischargedd): NS 0.9% 1000 ml IV at 125 ml/hr continuous jg9 13:28 Drug: Tetanus Toxoid,Adsorbed 0.5 ml {Stockroom Worker: tydy. Exp: 11/12/2023. Lot jg9 #: [id number]. } Route: IM; Site: right deltoid; 13:39 Follow up: Response: (VIS) Vaccine information sheet provided today. Questions and/or jg9 concerns addressed. VIS edition date: Feb 11, 2021.; No adverse reaction Medication: 13:49 Vaccine Information Statement (VIS) provided today. Questions and/or concerns jg9 addressed. VIS edition date: February 18, 2022. Intake: 12:50 IV: 50ml; Total: 50ml. jg9 13:15 IV: 500ml; Total: 550ml. jg9 13:44 IV: 50ml; Total: 600ml. jg9 Outcome: 13:26 Discharge ordered by . ramona 13:49 Condition: stable jg9 13:50 Discharged to home ambulatory. jg9 13:51 Discharged to home jg9 13:51 Prescriptions given X 2. 13:51 Patient left the ED. jg9 Signatures: Dispatcher [employer] EDMS Bandar Roy MD MD cha Rivera, Heeln Frida Penn, RN RN ld1 Sophie Kimble RN RN jh6 Helen Bravo 7 Sophie Watson RN RN jg9 Corrections: (The following items were deleted from the chart) 13:47 12:00 Derm: Skin has blisters on left great toe Skin is Skin is Skin temperature is jg9 redness noted to left great toe Reports since patient reports hx of previous surgery to foot near area where the skin is red, swollen-pain is minimal. jg9 13:47 12:00 Pain: Complains of pain in left first toe and Left first toenail Pain currently jg9 is 3 out of 10 on a pain scale. jg9 13:49 12:00 Derm: Skin has blisters on left great toe Skin is Skin is Skin temperature is jg9 redness noted to right great toe Reports since patient reports hx of previous surgery to foot near area where the skin is red, swollen-pain is minimal. jg9 13:51 13:50 Discharge instructions given to patient, Instructed on discharge instructions, jg9 follow up and referral plans. Demonstrated understanding of instructions, follow-up care, Prescriptions given X 1, jg9
--- NOTE | 2022-02-18 13:27 | EDPHYS ---
Physician Documentation [facility] Name: Luca Grimes Age: 71 yrs Sex: Male : 1950 Arrival Date: 02/18/2022 Time: 11:06 Bed 8 Private MD: ED Physician Bandar Roy HPI: 02/18 13:17 This 71 yrs old Male presents to ER via Ambulatory with complaints of ramona Infected Toe. 13:17 The patient presents with decreased range of motion, pain, that is acute. The ramona complaints affect the right foot, medial aspect of right toes, plantar aspect of right first toe and Right first toenail. Context: The problem was sustained at an unknown location. Onset: The symptoms/episode began/occurred 3 day(s) ago. Modifying factors: The symptoms are alleviated by elevation of extremity, the symptoms are aggravated by weight bearing. Associated signs and symptoms: Pertinent positives: warmth. Severity of symptoms: At their worst the symptoms were mild, in the emergency department the symptoms are actually worse, mildly. The patient has not experienced similar symptoms in the past. Historical: - Allergies: 11:11 Codeine; ld1 - PMHx: 11:11 Diabetes - NIDDM; High Cholesterol; Hypertension; ld1 - PSHx: 11:11 None; ld1 - Immunization history:: Adult Immunizations up to date, Client reports having NOT received the Covid vaccine. - Social history:: Smoking status: Patient denies any tobacco usage or history of. Patient/guardian denies using alcohol. - Family history:: not pertinent. ROS: 13:17 Constitutional: Negative for fever, chills, and weight loss, Eyes: Negative for injury, ramona pain, redness, and discharge, ENT: Negative for injury, pain, and discharge, Neck: Negative for injury, pain, and swelling, Cardiovascular: Negative for chest pain, palpitations, and edema, Respiratory: Negative for shortness of breath, cough, wheezing, and pleuritic chest pain, Abdomen/GI: Negative for abdominal pain, nausea, vomiting, diarrhea, and constipation, Back: Negative for injury and pain, : Negative for injury, bleeding, discharge, and swelling, Neuro: Negative for headache, weakness, numbness, tingling, and seizure, Psych: Negative for depression, anxiety, suicide ideation, homicidal ideation, and hallucinations, Allergy/Immunology: Negative for hives, rash, and allergies, Endocrine: Negative for neck swelling, polydipsia, polyuria, polyphagia, and marked weight changes, Hematologic/Lymphatic: Negative for swollen nodes, abnormal bleeding, and unusual bruising. 13:17 MS/extremity: Positive for decreased range of motion, erythema, pain, of the medial aspect of right toes, plantar aspect of right first toe, right first toe and Right first toenail. Exam: 13:17 Constitutional: This is a well developed, well nourished patient who is awake, alert, ramona and in no acute distress. Head/Face: Normocephalic, atraumatic. Eyes: Pupils equal round and reactive to light, extra-ocular motions intact. Lids and lashes normal. Conjunctiva and sclera are non-icteric and not injected. Cornea within normal limits. Periorbital areas with no swelling, redness, or edema. ENT: Nares patent. No nasal discharge, no septal abnormalities noted. Tympanic membranes are normal and external auditory canals are clear. Oropharynx with no redness, swelling, or masses, exudates, or evidence of obstruction, uvula midline. Mucous membranes moist. Neck: Trachea midline, no thyromegaly or masses palpated, and no cervical lymphadenopathy. Supple, full range of motion without nuchal rigidity, or vertebral point tenderness. No Meningismus. Chest/axilla: Normal chest wall appearance and motion. Nontender with no deformity. No lesions are appreciated. Cardiovascular: Regular rate and rhythm with a normal S1 and S2. No gallops, murmurs, or rubs. Normal PMI, no JVD. No pulse deficits. Respiratory: Lungs have equal breath sounds bilaterally, clear to auscultation and percussion. No rales, rhonchi or wheezes noted. No increased work of breathing, no retractions or nasal flaring. Abdomen/GI: Soft, non-tender, with normal bowel sounds. No distension or tympany. No guarding or rebound. No evidence of tenderness throughout. Back: No spinal tenderness. No costovertebral tenderness. Full range of motion. Male : Normal genitalia with no discharge or lesions. Neuro: Awake and alert, GCS 15, oriented to person, place, time, and situation. Cranial nerves II-XII grossly intact. Motor strength 5/5 in all extremities. Sensory grossly intact. Cerebellar exam normal. Normal gait. Psych: Awake, alert, with orientation to person, place and time. Behavior, mood, and affect are within normal limits. 13:17 Skin: cellulitis, that is minimal, induration, that is mild is noted, injury, abrasion(s), very small abrasion noted, blister, build up, hard blister present. Vital Signs: 11:11 BP 155 / 104; Pulse 77; Resp 18; Temp 97.8(O); Pulse Ox 99% on R/A; Weight 102.06 kg; ld1 Height 6 ft. 4 in. (193.04 cm); Pain 0/10; 12:10 BP 151 / 91; Pulse 64; Resp 18 S; Pulse Ox 98% ; Pain 3/10; jg9 13:30 BP 145 / 91; Pulse 59; Resp 17 S; Pulse Ox 100% ; jg9 11:11 Body Mass Index 27.39 (102.06 kg, 193.04 cm) ld1 Procedures: 13:17 I \T\ D: Incision and drainage was performed for an abscess of the right Prepped with [facility] Betadine, Anesthetized with nothing. Incised with 18 gauge, scissors . Splinting: using post op shoe. Patient tolerated. MDM: 11:23 Patient medically screened. [facility] 13:17 Differential diagnosis: sprain, penetrating trauma, arthritis, cellulitis. Data [facility] reviewed: vital signs, nurses notes, lab test result(s), radiologic studies, plain films. Data interpreted: quality assurance monitor body: rate is 64 beats/min, rhythm is regular, Pulse oximetry: on room air is 98 %. Test interpretation: by ED physician or midlevel provider: plain radiologic studies. Counseling: I had a detailed discussion with the patient and/or guardian regarding: the historical points, exam findings, and any diagnostic results supporting the discharge/admit diagnosis, lab results, radiology results, the need for outpatient follow up, for definitive care, a family practitioner, a waterproofer helper. 02/18 11:44 Order name: ESR; Complete Time: 12:51 [facility] 02/18 11:44 Order name: CBC with Diff; Complete Time: 12:51 [facility] 02/18 11:44 Order name: Comprehensive Metabolic Panel; Complete Time: 12:51 [facility] 02/18 11:44 Order name: Foot Right 3 View XRAY; Complete Time: 13:16 ramona 02/18 11:57 Order name: HgA1c ramona 02/18 11:58 Order name: IV Saline Lock; Complete Time: 11:58 mb7 02/18 13:16 Order name: Post-op shoe; Complete Time: 13:27 ramona Administered Medications: 12:10 Drug: KeFLEX (cephalexin) 500 mg Route: PO; jg9 13:12 Follow up: Response: No adverse reaction jg9 12:15 Drug: NS 0.9% 500 ml Route: IV; Rate: bolus; Site: right antecubital; jg9 13:15 Follow up: IV Status: Completed infusion; IV Intake: 500ml jg9 12:16 Drug: Clindamycin 900 mg Route: IVPB; Infused Over: 30 mins; Site: right antecubital; jg9 12:50 Follow up: IV Status: Completed infusion; IV Intake: 50ml jg9 13:01 Follow up: Response: No adverse reaction; IV Status: Completed infusion [facility] 13:02 Follow up: Response: No adverse reaction [facility] 13:01 Drug: Ancef (cefazolin) 1 grams Route: IVPB; Site: right antecubital; jh6 13:44 Follow up: IV Status: Completed infusion; IV Intake: 50ml jg9 13:27 Drug: Silver SulfADIAZINE Cream 1 % 1 application {Note: right great toe.} Route: jg9 Topical; Site: affected area; 13:28 Follow up: Response: No adverse reaction jg9 13:28 Not Given (patient dischargedd): NS 0.9% 1000 ml IV at 125 ml/hr continuous jg9 13:28 Drug: Tetanus Toxoid,Adsorbed 0.5 ml {Heater Installer: [employer]. Exp: 11/12/2023. Lot jg9 #: [id number]. } Route: IM; Site: right deltoid; 13:39 Follow up: Response: (VIS) Vaccine information sheet provided today. Questions and/or jg9 concerns addressed. VIS edition date: Feb 11, 2021.; No adverse reaction Disposition Summary: 02/18/22 13:26 Discharge Ordered Location: Home ramona Problem: new ramona Symptoms: have improved ramona Condition: Stable ramona Diagnosis - Cellulitis of right toe ramona - Cellulitis of right lower limb - foot ramona - Type 2 diabetes mellitus with hyperglycemia [facility] Followup: ramona - With: Private Physician - When: 2 - 3 days - Reason: Recheck today's complaints, Continuance of care, Re-evaluation by your physician Followup: ramona - With: Cordell Gautam DPM - When: 2 - 3 days - Reason: Recheck today's complaints, Re-evaluation by your physician Discharge Instructions: - Discharge Summary Sheet ramona - Cellulitis, Adult ramona - Type 2 Diabetes Mellitus, Diagnosis, Adult ramona - Hyperglycemia [facility] Forms: - Medication Reconciliation Form [facility] - Thank You Letter ramona - Antibiotic Education [facility] - Prescription Opioid Use [facility] - Work release form ss Prescriptions: - Cephalexin 500 mg Oral Capsule - take 1 capsule by ORAL route every 6 hours for 10 days; 40 capsule; Refills: 0, [facility] Product Selection Permitted - Clindamycin HCl 300 mg Oral Capsule - take 1 capsule by ORAL route every 6 hours for 10 days; 40 capsule; Refills: 0, [facility] Product Selection Permitted - Silvadene 1 % Topical Cream - Apply to affected area 1 application by TOPICAL route every 12 hours; 50 gram; [facility] Refills: 0, Product Selection Permitted Signatures: Dispatcher [employer] Bandar Gonzalez MD MD cha Dibbern, Lauren RN RN ld1 Sophie Kimble RN RN jh6 Helen Bravo 7 Sophie Watson, GIOVANNA RN jg9
[2022-02-18 14:33] VITALS: TEMP 97.8
[2022-02-18 14:45] VITALS: BP 145/91; O2SAT 100
== END 2022-02-18 13:51 | disposition home or self-care (01) ==
LOC: ER 11:03
PROC: 0H9MXZZ Drainage of Right Foot Skin, External Approach (ICD-10-PCS; principal; 2022-02-18)
DX: L03.031 Cellulitis of right toe (principal); L03.115 Cellulitis of right lower limb; E11.65 Type 2 diabetes mellitus with hyperglycemia; I10 Essential (primary) hypertension; Z23 Encounter for immunization; Z88.5 Allergy status to narcotic agent
CPT/HCPCS: 96365; 96367; 85025; 36415; 85652; 80053; 73630; 90471; 90714; 99284; 10060; J7040; J0690; J7030

== ENCOUNTER 2023-02-16 11:23 | Emergency (ER) | payer OTHER ==
[2023-02-16 12:08] LABS: Absolute Lymphocytes (CBC) 1.1 K/uL (0.7-4.9); Hematocrit 40.5 % (39.6-49.0); Lymphocytes % 18.7 % (15.3-44.8); MCV 80.9 fL (80-100); MPV 8.4 fL (7.6-11.3); Platelets 242 thou/uL (152-406); RBC Red Blood Cell Count 5.01 M/uL (4.33-5.43)
--- NOTE | 2023-02-16 12:26 | RAD REPORT ---
EXAM DESCRIPTION: RAD - Chest Single View - 02/16/2023 12:22 pm CLINICAL HISTORY: DYSPNEA COMPARISON: Chest Single View dated 11/13/2020; Abdomen 1 View (KUB) dated 09/16/2019; CHEST PA AND LAT 2 VIEW dated 05/17/2012 FINDINGS: Lines: None. Lungs: No evidence of edema or pneumonia. Pleural: No significant pleural effusions or pneumothorax. Cardiac: The heart size is within normal limits. Mediastinum: Within normal limits. Bones: No acute fractures. Other: None IMPRESSION: No acute cardiopulmonary disease.
[2023-02-16] MEDS ORDERED: METOPROLOL XL 50 MG TAB PO ONE (12:33)
[2023-02-16 12:34] LABS: Albumin 3.6 g/dL (3.4-5.0); Bilirubin Direct 0.3 mg/dL (0-0.2); Bilirubin Indirect, Calculated 0.5 mg/dL (0.2-0.8); Bilirubin Total 0.8 mg/dL (0.2-1.0); Magnesium 1.9 mg/dL (1.6-2.4); Potassium 3.8 mEq/L (3.5-5.1); Thyroid Stimulating Hormone 1.88 uIU/mL (0.358-3.740); Troponin High Sensitivity 7.6 pg/mL (<58.9)
--- NOTE | 2023-02-16 12:48 | ER ---
Nurse's Notes [facility] Name: Luca Grimes Age: 72 yrs Sex: Male : 1950 Arrival Date: 02/16/2023 Time: 11:23 Bed 7 Private MD: Diagnosis: Chronic atrial fibrillation Presentation: 02/16 11:41 Chief complaint: Sent from [facility] for AFIB w/RVR, R 109. Pt reports palpitations and hb SOB since this morning. Landscape Specialist is Dr. Kelley at [facility]. Coronavirus screen: At this time, the client does not indicate any symptoms associated with coronavirus-19. Ebola Screen: No symptoms or risks identified at this time. Initial Sepsis Screen: Does the patient meet any 2 criteria? No. Patient's initial sepsis screen is negative. Does the patient have a suspected source of infection? No. Patient's initial sepsis screen is negative. Risk Assessment: Do you want to hurt yourself or someone else? Patient reports no desire to harm self or others. Onset of symptoms was February 16, 2023. 11:41 Method Of Arrival: Ambulatory hb 11:41 Acuity: MARY 3 hb Historical: - Allergies: 11:43 Codeine; hb - PMHx: 11:43 Diabetes - NIDDM; High Cholesterol; Hypertension; hb Screenin:00 [facility] ED Fall Risk Assessment (Adult) History of falling in the last 3 months, aa5 including since admission No falls in past 3 months (0 pts) Confusion or Disorientation No (0 pts) Intoxicated or Sedated No (0 pts) Impaired Gait No (0 pts) Mobility Assist Device Used No (0 pt) Altered Elimination No (0 pt) Score/Fall Risk Level 0 - 2 = Low Risk Oriented to surroundings, Maintained a safe environment, Educated pt \T\ family on fall prevention, incl call for assistance when getting out of bed. Abuse screen: Denies threats or abuse. Nutritional screening: No deficits noted. Tuberculosis screening: No symptoms or risk factors identified. Assessment: 12:00 General: Appears comfortable, Behavior is calm, cooperative. Pain: Denies pain. Neuro: aa5 Level of Consciousness is awake, alert, obeys commands, Oriented to person, place, time, situation. Cardiovascular: Reports intermittent SOB and palpitations. Heart tones S1 S2 present Rhythm is atrial fibrillation. Respiratory: Airway is patent Respiratory effort is even, unlabored, Respiratory pattern is regular, symmetrical, Breath sounds are clear bilaterally. GI: Abdomen is round non-distended, Bowel sounds present X 4 quads. Abd is soft and non tender X 4 quads. Patient currently denies diarrhea, intolerance of fluids, intolerance of food, nausea, vomiting. : No signs and/or symptoms were reported regarding the genitourinary system. EENT: No signs and/or symptoms were reported regarding the EENT system. Derm: Skin is pink, warm \T\ dry. Musculoskeletal: Range of motion: intact in all extremities. 12:25 Reassessment: Patient is alert, oriented x 3, equal unlabored respirations, skin aa5 warm/dry/pink. 12:43 Reassessment: Dr. Dunn at bedside. . aa5 12:48 Reassessment: Patient is alert, oriented x 3, equal unlabored respirations, skin aa5 warm/dry/pink. 13:02 Reassessment: Patient is alert, oriented x 3, equal unlabored respirations, skin aa5 warm/dry/pink. Vital Signs: 11:41 BP 129 / 104; Pulse 95; Resp 16; Temp 98.1(O); Pulse Ox 96% on R/A; Weight 100.24 kg; hb Height 6 ft. 4 in. ; Pain 1/10; 12:25 BP 134 / 110; Pulse 88; Resp 16 S; Pulse Ox 96% on R/A; aa5 12:48 BP 136 / 102; Pulse 90; Resp 19 S; Pulse Ox 97% on R/A; aa5 13:02 BP 140 / 95; Pulse 71; Resp 17 S; Temp 97.8(TE); Pulse Ox 98% on R/A; aa5 11:41 Body Mass Index 26.90 (100.24 kg, 193.04 cm) hb 11:41 Pain Scale: Adult hb ED Course: 11:26 Patient arrived in ED. mr 11:28 Santiago Dunn MD is Attending Physician. rt 11:43 Triage completed. hb 11:46 Arm band placed on. iw 11:49 Zuly Finch, RN is Primary Nurse. aa5 12:00 Patient has correct armband on for positive identification. Bed in low position. Call aa5 light in reach. Side rails up X2. Adult w/ patient. Client placed on continuous cardiac and pulse oximetry monitoring. NIBP monitoring applied. 12:00 Initial lab(s) drawn, by me, sent to lab. Inserted saline lock: 20 gauge in right aa5 forearm, using aseptic technique. Blood collected. 12:23 X-ray completed. Portable x-ray completed in exam room. Patient tolerated procedure mh1 well. 12:24 XRAY Chest (1 view) In Process Unspecified. EDMS 13:12 No provider procedures requiring assistance completed. IV discontinued, intact, aa5 bleeding controlled, No redness/swelling at site. Pressure dressing applied. Administered Medications: 12:20 Not Given (per Dr. Dunn): metoproloL 24 Hr Sprinkle Capsule (Succinate) 100 mg PO hb once 12:26 Drug: Metoprolol PO 100 mg Route: PO; aa5 13:10 Follow up: Response: No adverse reaction aa5 Medication: 13:12 VIS not applicable for this client. aa5 Outcome: 12:48 Discharge ordered by MD. rt 13:11 Discharged to home ambulatory, with family. aa5 13:11 Condition: stable 13:11 Discharge instructions given to patient, Instructed on discharge instructions, follow up and referral plans. Demonstrated understanding of instructions, follow-up care. 13:12 Patient left the ED. aa5 Signatures: Dispatcher [employer] SHANWI SherifHelen mr Hathaway Marbella 1 Carlene Taveras, GIOVANNA HEREDIA Zuly Finch RN RN aa5 Hallie Burks RN RN hb [place], Ryan, MD MD rt
--- NOTE | 2023-02-16 12:48 | EDPHYS ---
Physician Documentation [facility] Name: Luca Grimes Age: 72 yrs Sex: Male : 1950 Arrival Date: 02/16/2023 Time: 11:23 Bed 7 Private MD: ED Physician Santiago Dunn HPI: 02/16 11:29 This 72 yrs old Male presents to ER via Unassigned with complaints of Abnormal EKG. rt 11:52 Patient presents to the ED with reported atrial fibrillation with rapid ventricular rt rate. He does have a known history of atrial fibrillation, currently takes metoprolol succinate, Eliquis for that. He does have an appointment for cardiology follow-up in the next few days. The patient went for a regular checkup at the NH, reported a very minimal shortness of breath, EKG at that time showed an A-fib with a rate of about 115. Was sent to the ED for further evaluation. He states that he is essentially symptomatic at this time, states that he feels well. Denies other acute complaints at this time. Symptoms are moderate severity, no other aggravating or alleviating factors.. Historical: - Allergies: 11:43 Codeine; hb - PMHx: 11:43 Diabetes - NIDDM; High Cholesterol; Hypertension; hb ROS: 11:52 Constitutional: Negative for fever, chills, and weight loss, Cardiovascular: Negative rt for chest pain, palpitations, and edema, Abdomen/GI: Negative for abdominal pain, nausea, vomiting, diarrhea, and constipation, MS/Extremity: Negative for injury and deformity, Skin: Negative for injury, rash, and discoloration, Neuro: Negative for headache, weakness, numbness, tingling, and seizure, Psych: Negative for depression, anxiety, suicide ideation, homicidal ideation, and hallucinations. 11:52 Respiratory: Positive for shortness of breath, Negative for cough. Exam: 11:52 Constitutional: This is a well developed, well nourished patient who is awake, alert, rt and in no acute distress. Head/Face: Normocephalic, atraumatic. Chest/axilla: Normal chest wall appearance and motion. Nontender with no deformity. No lesions are appreciated. Cardiovascular: Regular rate and rhythm with a normal S1 and S2. No gallops, murmurs, or rubs. Normal PMI, no JVD. No pulse deficits. Respiratory: Lungs have equal breath sounds bilaterally, clear to auscultation and percussion. No rales, rhonchi or wheezes noted. No increased work of breathing, no retractions or nasal flaring. Abdomen/GI: Soft, non-tender, with normal bowel sounds. No distension or tympany. No guarding or rebound. No evidence of tenderness throughout. Skin: Warm, dry with normal turgor. Normal color with no rashes, no lesions, and no evidence of cellulitis. MS/ Extremity: Pulses equal, no cyanosis. Neurovascular intact. Full, normal range of motion. Neuro: Awake and alert, GCS 15, oriented to person, place, time, and situation. Cranial nerves II-XII grossly intact. Motor strength 5/5 in all extremities. Sensory grossly intact. Cerebellar exam normal. Normal gait. Psych: Awake, alert, with orientation to person, place and time. Behavior, mood, and affect are within normal limits. 11:52 ECG was reviewed by the Attending Physician. Vital Signs: 11:41 BP 129 / 104; Pulse 95; Resp 16; Temp 98.1(O); Pulse Ox 96% on R/A; Weight 100.24 kg; hb Height 6 ft. 4 in. ; Pain 1/10; 12:25 BP 134 / 110; Pulse 88; Resp 16 S; Pulse Ox 96% on R/A; aa5 12:48 BP 136 / 102; Pulse 90; Resp 19 S; Pulse Ox 97% on R/A; aa5 13:02 BP 140 / 95; Pulse 71; Resp 17 S; Temp 97.8(TE); Pulse Ox 98% on R/A; aa5 11:41 Body Mass Index 26.90 (100.24 kg, 193.04 cm) hb 11:41 Pain Scale: Adult hb MDM: 11:41 Patient medically screened. rt 12:48 Differential diagnosis: A-fib with rapid heart rate, atrial fibrillation controlled, rt ventricular tachydysrhythmia, electrolyte disturbance, acute coronary. Data reviewed: vital signs, nurses notes, old medical records, Old EKG was obtained, reveals chronic right bundle branch block lab test result(s), EKG, radiologic studies. Consideration of Admission/Observation Escalation of care including admission/observation considered. Patient is found to have atrial fibrillation with controlled rate upon arrival to the ED, this is a pre-existing condition, is on appropriate medications for atrial fibrillation. He is asymptomatic at this time. Labs reveal creatinine that is very minimally increased compared to baseline, not likely clinically significant at this time as well as an elevated BNP, mildly. Troponin is negative. The rest the patient's labs are benign. Patient likely to benefit from admission to the hospital, he has a close follow-up appointment already scheduled with his change management specialist, he is comfortable discharge, strict return precautions were discussed. I considered the following discharge prescriptions or medication management in the emergency department Medications were administered in the Emergency Department. See MAR. Test considered but Not performed: CT: Low suspicion for pulmonary embolism, CT angiogram not indicated. Care significantly affected by the following chronic conditions: Atrial fibrillation. Counseling: I had a detailed discussion with the patient and/or guardian regarding: the historical points, exam findings, and any diagnostic results supporting the discharge/admit diagnosis, lab results, radiology results, the need for outpatient follow up, to return to the emergency department if symptoms worsen or persist or if there are any questions or concerns that arise at home. 02/16 11:51 Order name: Basic Metabolic Panel; Complete Time: 12:36 rt 02/16 11:51 Order name: CBC with Diff; Complete Time: 12:24 rt 02/16 11:51 Order name: LFT's; Complete Time: 12:36 rt 02/16 11:51 Order name: Magnesium; Complete Time: 12:36 rt 02/16 11:51 Order name: NT PRO-BNP; Complete Time: 12:36 rt 02/16 11:51 Order name: Troponin HS; Complete Time: 12:36 rt 02/16 11:51 Order name: TSH; Complete Time: 12:36 rt 02/16 11:51 Order name: XRAY Chest (1 view); Complete Time: 12:30 rt 02/16 11:51 Order name: EKG; Complete Time: 11:52 rt 02/16 11:51 Order name: Cardiac monitoring; Complete Time: 11:58 rt 02/16 11:51 Order name: EKG - Nurse/Tech; Complete Time: 11:58 rt 02/16 11:51 Order name: IV Saline Lock; Complete Time: :58 rt 02/16 11:51 Order name: Labs collected and sent; Complete Time: :58 rt 02/16 11:51 Order name: O2 Per Protocol; Complete Time: 58 rt 02/16 11:51 Order name: O2 Sat Monitoring; Complete Time: :58 rt EC:52 Rate is 91 beats/min. Rhythm is irregularly irregular, A fib with No ectopy, Right rt bundle branch block. Left axis deviation noted. QT interval is normal. No Q waves. Administered Medications: 12:20 Not Given (per Dr. Dunn): metoproloL 24 Hr Sprinkle Capsule (Succinate) 100 mg PO once 12:26 Drug: Metoprolol PO 100 mg Route: PO; aa5 13:10 Follow up: Response: No adverse reaction aa5 Disposition Summary: 02/16/23 12:48 Discharge Ordered Location: Home rt Problem: an acute exacerbation rt Symptoms: have improved rt Condition: Stable rt Diagnosis - Chronic atrial fibrillation rt Followup: rt - With: Private Physician - When: 2 - 3 days - Reason: Followup: rt - With: Emergency Department - When: - Reason: Worsening of condition Discharge Instructions: - Discharge Summary Sheet rt - Atrial Fibrillation rt Forms: - Medication Reconciliation Form rt - Thank You Letter rt - Antibiotic Education rt - Prescription Opioid Use rt - Patient Portal Instructions rt Signatures: Dispatcher [employer] uZly Nolan RN RN aa5 Hallie Burks, GIOVANNA RN Santiago Dunn MD MD rt
[2023-02-16 13:21] VITALS: BP 140/95; TEMP 97.8; O2SAT 98
--- NOTE | 2023-02-18 15:32 | EKG ---
Test Date: 2023-02-16 Test Time: 11:42:05 Facility Operations Manager: MICHAELLE MEASUREMENT RESULTS: Intervals: Rate: 91 OR: QRSD: 164 QT: 392 QTc: 482 Central: P: OR: QRS: -74 T: -44 INTERPRETIVE STATEMENTS: Atrial fibrillation Left axis deviation Right bundle branch block Abnormal ECG Compared to ECG 11/13/2020 21:09:10 Sinus rhythm no longer present First degree AV block no longer present Electronically Signed On 02-18-23 15:30:39 CDT by Terrance Karimi
== END 2023-02-16 13:12 | disposition home or self-care (01) ==
LOC: ER 11:23
DX: I48.19 Other persistent atrial fibrillation (principal); Z79.01 Long term (current) use of anticoagulants; I10 Essential (primary) hypertension; Z88.5 Allergy status to narcotic agent
CPT/HCPCS: 36415; 71045; 80048; 80076; 83735; 83880; 84443; 84484; 85025; 93005; 99284

== ENCOUNTER 2023-04-21 11:19 | Inpatient (IN) | payer OTHER ==
[2023-04-21] MEDS ORDERED: NA CHLORIDE 0.9% 1,000 ML ONE ×2 (12:07→16:31)
[2023-04-21] MEDS ORDERED: CEFTRIAXONE 1000 MG/VIAL ONE (12:07)
[2023-04-21] MEDS ORDERED: METRONIDAZOLE 500mg IVPB 500 MG/100 ML BAG IV ONE (12:08)
[2023-04-21] MEDS ORDERED: NA CHLORIDE 0.9% 50 ML ONE (12:08)
[2023-04-21 12:12] LABS: Absolute Lymphocytes (CBC) 0.4 K/uL (0.7-4.9); Hematocrit 40.4 % (39.6-49.0); Lymphocytes % 3.3 % (15.3-44.8); MCV 80.7 fL (80-100); MPV 8.8 fL (7.6-11.3); Platelets 209 thou/uL (152-406); RBC Red Blood Cell Count 5.01 M/uL (4.33-5.43)
[2023-04-21 12:16] LABS: Protime INR 1.42
[2023-04-21 12:25] LABS: Albumin 3.7 g/dL (3.4-5.0); Bilirubin Total 1.2 mg/dL (0.2-1.0); Potassium 3.9 mEq/L (3.5-5.1)
[2023-04-21 12:32] LABS: Blood Morphology Comment NOT SEEN (NOT SEEN); Platelet Estimate ADEQ; White Blood Cell Scan OK (OK)
[2023-04-21 12:44] LABS: Specific Gravity 1.017 (1.005-1.030); Urine Bacteria None Seen /HPF (<20); Urine Bilirubin NEGATIVE (Negative); Urine Blood Negative (Negative); Urine Clarity Clear (Clear); Urine Color Light-Yellow (Yellow); Urine Glucose TRACE (Negative); Urine Protein TRACE (Negative); Urine RBC <5 /HPF (None Seen); Urine Urobilinogen Normal (Normal)
--- NOTE | 2023-04-21 13:27 | RAD REPORT ---
EXAM DESCRIPTION: CT - Abdomen Pelvis W Contrast - 04/21/2023 12:49 pm CLINICAL HISTORY: Abdominal pain COMPARISON: none. TECHNIQUE: Computed axial tomography of the abdomen pelvis was obtained. 100 cc Isovue-300 was admin istered intravenously. Oral contrast was not requested which limits evaluation of bowel and appendix All CT scans are performed using dose optimization technique as appropriate and may include automated exposure control or mA/KV adjustment according to patient size. FINDINGS: Liver, spleen, pancreas and adrenals unremarkable Multiple, bilateral renal calculi. The largest calculus is present within the right kidney measuring 9 millimeters. No hydronephrosis. Small right renal cyst. No evidence diverticulitis. Prostate gland is mildly enlarged. There appears to have been a TURP Small to moderate right and small left inguinal hernias contain fat Prominent scoliosis involves the spine Spondylosis lumbar spine resulting in spinal stenosis IMPRESSION: No acute abnormality is displayed.
--- NOTE | 2023-04-21 13:28 | RAD REPORT ---
EXAM DESCRIPTION: Jeannie Single View04/21/2023 12:11 pm CLINICAL HISTORY: sob COMPARISON: February 2023 FINDINGS: The lungs appear clear of acute infiltrate. The heart is mildly to moderately enlarged IMPRESSION: No acute abnormalities displayed
[2023-04-21] MEDS ORDERED: ONDANSETRON 4 MG/2 ML VIAL ONE (13:41)
[2023-04-21] MEDS ORDERED: METOPROLOL XL 50 MG TAB PO ONE (14:57)
[2023-04-21] MEDS ORDERED: METOPROLOL TARTRATE 5 MG/5 ML INJ IV ONE ×2 (14:58→15:41)
--- NOTE | 2023-04-21 17:48 | ER ---
Nurse's Notes [facility] Name: Luca Grimes Age: 73 yrs Sex: Male : 1950 Arrival Date: 04/21/2023 Time: 11:19 Bed 13 Private MD: Diagnosis: Paroxysmal atrial fibrillation;Abdominal pain, Generalized Presentation: 04/21 11:14 Chief complaint: EMS states: PT COMPLAINING OF RIB PAIN, DIFF BREATHING. NAUSEA. db Coronavirus screen: Vaccine status: Patient reports receiving the 2nd dose of the covid vaccine. Client denies travel out of the [place] in the last 14 days. At this time, the client does not indicate any symptoms associated with coronavirus-19. Ebola Screen: Patient negative for fever greater than or equal to 101.5 degrees Fahrenheit, and additional compatible Ebola Virus Disease symptoms Patient denies exposure to infectious person. Patient denies travel to an Ebola-affected area in the 21 days before illness onset. No symptoms or risks identified at this time. Initial Sepsis Screen: Does the patient meet any 2 criteria? HR > 90 bpm. Does the patient have a suspected source of infection? No. Patient's initial sepsis screen is negative. Risk Assessment: Do you want to hurt yourself or someone else? Patient reports no desire to harm self or others. Onset of symptoms was April 21, 2023. 11:14 Method Of Arrival: EMS: [facility] db 11:14 Acuity: MARY 2 db Triage Assessment: 11:27 General: Appears in no apparent distress. comfortable, Behavior is calm, cooperative. db Pain: Complains of pain in abdomen. Respiratory: Airway is patent Respiratory effort is even, unlabored, Respiratory pattern is regular, symmetrical. GI: Reports lower abdominal pain. Historical: - Allergies: 11:27 Codeine; db - PMHx: 11:27 Diabetes - NIDDM; High Cholesterol; Hypertension; db - Immunization history:: Adult Immunizations up to date. - Social history:: Smoking status: Patient denies any tobacco usage or history of. Screenin:13 [facility] ED Fall Risk Assessment (Adult) History of falling in the last 3 months, db including since admission No falls in past 3 months (0 pts) Confusion or Disorientation No (0 pts) Intoxicated or Sedated No (0 pts) Impaired Gait No (0 pts) Mobility Assist Device Used No (0 pt) Altered Elimination No (0 pt) Score/Fall Risk Level 0 - 2 = Low Risk Oriented to surroundings, Maintained a safe environment. Abuse screen: Denies threats or abuse. Denies injuries from another. Nutritional screening: No deficits noted. Tuberculosis screening: No symptoms or risk factors identified. Assessment: 16:24 Reassessment: Patient appears in no apparent distress at this time. Patient and/or db family updated on plan of care and expected duration. Pain level reassessed. Patient is alert, oriented x 3, equal unlabored respirations, skin warm/dry/pink. Patient states feeling better. Patient states symptoms have improved. General: Appears in no apparent distress. comfortable, Behavior is calm, cooperative. 18:25 Reassessment: PT PROVIDED FOOD PER HOSPITALIST [employer]. Reassessment: Patient states db feeling better. Patient states symptoms have improved. GI: No deficits noted. No signs and/or symptoms were reported involving the gastrointestinal system. Vital Signs: 11:14 BP 156 / 101; Pulse 123; Resp 18; Temp 99.3(O); Pulse Ox 95% on R/A; Weight 99.79 kg; db Height 6 ft. 4 in. ; 11:30 BP 135 / 109; Pulse 123; Resp 18; Pulse Ox 95% on R/A; db 13:00 BP 162 / 105; Pulse 124; Resp 18; Pulse Ox 94% on R/A; db 13:36 Temp 100.3(O); db 15:00 BP 132 / 88; Pulse 160; db 15:25 BP 105 / 75; Pulse 129; db 15:30 BP 137 / 70; Pulse 125; db 15:35 BP 115 / 79; Pulse 136; db 15:40 BP 107 / 76; Pulse 118; db 15:50 BP 100 / 73; Pulse 117; db 16:00 BP 100 / 74; Pulse 118; db 16:15 BP 96 / 75; Pulse 118; db 16:20 BP 94 / 77; Pulse 118; db 16:30 BP 109 / 79; Pulse 115; Resp 18; Pulse Ox 96% ; db 16:45 BP 111 / 73; Pulse 115; db 17:00 BP 101 / 72; Pulse 115; Resp 18; Pulse Ox 96% ; db 18:00 BP 105 / 73; Pulse 117; Resp 16; Pulse Ox 96% on R/A; db 18:15 BP 105 / 73; Pulse 117; Resp 18; Pulse Ox 96% on R/A; db 18:35 BP 106 / 76; Pulse 116; Resp 16; Pulse Ox 97% on R/A; db 20:06 BP 94 / 67; Pulse 115; Resp 22; Pulse Ox 95% on R/A; me1 21:11 BP 107 / 78; Pulse 92; Resp 21; Pulse Ox 93% on R/A; me1 11:14 Body Mass Index 26.78 (99.79 kg, 193.04 cm) db 13:00 NOTIFIED PROVIDER OF BP db 16:15 notified provider of BP new order for NS 1L received and started db ED Course: 11:21 Patient arrived in ED. db 11:22 Jude Cardona MD is Attending Physician. ec2 11:27 Triage completed. db 11:33 Arm band placed on Patient placed in an exam room. db 11:37 Stacy Jon, RN is Primary Nurse. db 12:00 Inserted saline lock: 20 gauge in right antecubital area, using aseptic technique. zm Blood collected. 12:13 CXR XRAY In Process Unspecified. EDMS 12:51 CT Abd/Pelvis - IV Contrast Only In Process Unspecified. EDMS 17:14 Patient has correct armband on for positive identification. Bed in low position. Call db light in reach. Side rails up X2. Provided Education on: ADMISSION. Client placed on continuous cardiac and pulse oximetry monitoring. NIBP monitoring applied. Warm blanket given. 17:47 Herber Voss MD is Hospitalizing Provider. ec2 20:46 No provider procedures requiring assistance completed. Patient admitted, IV remains in me1 place. Administered Medications: 12:00 Drug: NS 0.9% IV 1000 ml IV at 1 bolus Per protocol; 1000 mL bolus Route: IV; Rate: 1 db bolus; Site: left antecubital; 12:20 Drug: Rocephin IV 1 grams IV at calculated rate once; Given slow IV push per pharmacy db instructions Route: IV; Rate: calculated rate; Site: right antecubital; 12:45 Follow up: Response: No adverse reaction; IV Status: Completed infusion; IV Intake: 50mldb 13:02 Drug: metroNIDAZOLE IVPB 500 mg 100 ml IVPB at 200 ml/hr once over 30 mins Volume: 100 db ml; Route: IVPB; Rate: 200 ml/hr; Infused Over: 30 mins; Site: right antecubital; 13:30 Drug: Ondansetron IVP 4 mg IVP once; over 2 minutes Route: IVP; Site: right antecubital;db 14:30 Follow up: Response: No adverse reaction db 14:30 Drug: Metoprolol PO 100 mg PO once Route: PO; db 19:27 Follow up: Response: No adverse reaction db 15:15 Drug: Metoprolol IVP 5 mg IVP every 5 minutes; Hold for SBP < 100 or HR < 60. x3 Route: db IVP; Site: right antecubital; 15:30 Drug: Metoprolol IVP 5 mg IVP every 5 minutes; Hold for SBP < 100 or HR < 60. x3 Route: db IVP; Site: right antecubital; 15:40 Drug: Metoprolol IVP 5 mg IVP every 5 minutes; Hold for SBP < 100 or HR < 60. x3 Route: db IVP; Site: right antecubital; 19:28 Follow up: Response: No adverse reaction; Marked relief of symptoms db 16:17 Not Given (Physician Discretion): metoprolol5 mg IVP every 5 minutes; Hold for SBP < db 100 or HR < 60. x3 16:20 Drug: NS 0.9% IV 1000 ml IV at 1000 ml once Route: IV; Rate: 1000 ml; Site: right db antecubital; 19:27 Follow up: IV Status: Completed infusion db Medication: 20:47 VIS not applicable for this client. me1 Intake: 12:45 IV: 50ml; Total: 50ml. db Outcome: 17:48 Decision to Hospitalize by Provider. ec2 20:47 Admitted to Med/surg accompanied by tech, via wheelchair, room 208, with chart, Report me1 called to GIOVANNA Obregon 20:47 Condition: stable 21:34 Patient left the ED. as6 Signatures: Dispatcher [employer] Tate Peacock RN RN as6 Lani Sawant Danielle, RN RN db Eddleman, Michelle, RN RN me1 Jude Cardona MD MD ec2
--- NOTE | 2023-04-21 17:48 | EDPHYS ---
Physician Documentation [facility] Name: Luca Grimes Age: 73 yrs Sex: Male : 1950 Arrival Date: 04/21/2023 Time: 11:19 Bed 13 Private MD: ED Physician Jude Cardona HPI: 04/21 11:25 This 73 yrs old Male presents to ER via EMS with complaints of Nausea, ec2 Abdominal Pain,. 11:25 Patient arrives today due to concern for abdominal pain. Patient reports that he been ec2 having several hours of symptoms, stated to have been abdominal pain with associated nausea without vomiting. Patient reports that he has no diarrhea symptoms. Denies any urinary problems. Patient with history of atrial fibrillation. Also history of hypertension and diabetes.. Historical: - Allergies: 11: Codeine; db - PMHx: 11:27 Diabetes - NIDDM; High Cholesterol; Hypertension; db - Immunization history:: Adult Immunizations up to date. - Social history:: Smoking status: Patient denies any tobacco usage or history of. ROS: 11:25 Abdomen/GI: Pain ec2 Exam: :27 Constitutional: PHYSICAL EXAMINATION: GENERAL: No acute distress HEENT: Extraocular ec2 motions intact CV: Tachycardia LUNGS: Clear to auscultation bilaterally. ABDOMEN: Diffusely tender without guarding or rigidity SKIN: No rash NEUROLOGIC: Moves all extremities equally Vital Signs: 11:14 BP 156 / 101; Pulse 123; Resp 18; Temp 99.3(O); Pulse Ox 95% on R/A; Weight 99.79 kg; db Height 6 ft. 4 in. ; 11:30 BP 135 / 109; Pulse 123; Resp 18; Pulse Ox 95% on R/A; db 13:00 BP 162 / 105; Pulse 124; Resp 18; Pulse Ox 94% on R/A; db 13:36 Temp 100.3(O); db 15:00 BP 132 / 88; Pulse 160; db 15:25 BP 105 / 75; Pulse 129; db 15:30 BP 137 / 70; Pulse 125; db 15:35 BP 115 / 79; Pulse 136; db 15:40 BP 107 / 76; Pulse 118; db 15:50 BP 100 / 73; Pulse 117; db 16:00 BP 100 / 74; Pulse 118; db 16:15 BP 96 / 75; Pulse 118; db 16:20 BP 94 / 77; Pulse 118; db 16:30 BP 109 / 79; Pulse 115; Resp 18; Pulse Ox 96% ; db 16:45 BP 111 / 73; Pulse 115; db 17:00 BP 101 / 72; Pulse 115; Resp 18; Pulse Ox 96% ; db 18:00 BP 105 / 73; Pulse 117; Resp 16; Pulse Ox 96% on R/A; db 18:15 BP 105 / 73; Pulse 117; Resp 18; Pulse Ox 96% on R/A; db 18:35 BP 106 / 76; Pulse 116; Resp 16; Pulse Ox 97% on R/A; db 20:06 BP 94 / 67; Pulse 115; Resp 22; Pulse Ox 95% on R/A; me1 21:11 BP 107 / 78; Pulse 92; Resp 21; Pulse Ox 93% on R/A; me1 11:14 Body Mass Index 26.78 (99.79 kg, 193.04 cm) db 13:00 NOTIFIED PROVIDER OF BP db 16:15 notified provider of BP new order for NS 1L received and started db MDM: 11:22 Patient medically screened. ec2 11:25 ED course: Patient arrives today due to concern for abdominal pain with associated ec2 nausea without vomiting. Examination remarkable for abdominal discomfort on examination. Will obtain a septic work-up given the patient's tachycardia. Currently considered process such as intra-abdominal infection, appendicitis, gallbladder pathology, urinary tract infection.. 11:56 ED course: EKG independently reviewed and interpreted by me, shows A-fib with a rate of ec2 117, no acute ST segment elevations, nonconcerning intervals.. 14:08 ED course: Patient's lab work is reassuring, CT abdomen pelvis shows no acute ec2 intra-abdominal process. On reassessment patient is well-appearing in no acute distress.. 14:16 ED course: On reassessment patient with some improvement in his symptoms however is ec2 noted to be in A-fib with RVR with rates in the 140s to 150s. I will give the patient a dose of his p.o. metoprolol which he did not take as well as a dose of IV metoprolol. Patient does still remain with symptoms, will admit him for symptomatic control as well as his A-fib with RVR.. 16:53 ED course: I reassessed the patient with improved tachycardia with rates in the 110s. ec2 Patient ultimately is A-fib with RVR with fever of unknown origin with abdominal pain with overall negative work-up. I will admit the patient for further work-up and management of A-fib with RVR.. 16:54 Data reviewed: vital signs. ec2 04/21 11:24 Order name: Blood Culture Adult (2) ec2 04/21 11:24 Order name: CBC with Diff; Complete Time: 13:21 ec2 04/21 11:24 Order name: CMP; Complete Time: 13:21 ec2 04/21 11:24 Order name: Lactate w/ 2H reflex if indic.; Complete Time: 13:21 ec2 04/21 11:24 Order name: Protime (+inr); Complete Time: 13:21 ec2 04/21 11:24 Order name: Ptt, Activated; Complete Time: 13:21 ec2 04/21 11:24 Order name: Urinalysis w/ reflexes; Complete Time: 13:21 ec2 04/21 12:32 Order name: CBC Smear Scan; Complete Time: 13:21 EDMS 04/21 14:59 Order name: SARS-COV-2 RT PCR; Complete Time: 15:54 em1 04/21 14:59 Order name: Flu; Complete Time: 16:47 em1 04/21 11:24 Order name: CT Abd/Pelvis - IV Contrast Only; Complete Time: 14:03 ec2 04/21 11:34 Order name: CXR XRAY; Complete Time: 14:03 ec2 04/21 11:24 Order name: EKG; Complete Time: 11:25 ec2 04/21 11:24 Order name: Accucheck; Complete Time: 13:35 ec2 04/21 11:24 Order name: Cardiac monitoring; Complete Time: 12:08 ec2 04/21 11:24 Order name: EKG - Nurse/Tech; Complete Time: 12:08 ec2 04/21 11:24 Order name: IV Saline Lock - Large Bore; Complete Time: 12:08 ec2 04/21 11:24 Order name: Labs collected and sent; Complete Time: 13:35 ec2 04/21 11:24 Order name: O2 Per Protocol; Complete Time: 12:08 ec2 04/21 11:24 Order name: O2 Sat Monitoring; Complete Time: 12:08 ec2 04/21 11:24 Order name: Vital Signs; Complete Time: 12:08 ec2 Administered Medications: 12:00 Drug: NS 0.9% IV 1000 ml IV at 1 bolus Per protocol; 1000 mL bolus Route: IV; Rate: 1 db bolus; Site: left antecubital; 12:20 Drug: Rocephin IV 1 grams IV at calculated rate once; Given slow IV push per pharmacy db instructions Route: IV; Rate: calculated rate; Site: right antecubital; 12:45 Follow up: Response: No adverse reaction; IV Status: Completed infusion; IV Intake: 50mldb 13:02 Drug: metroNIDAZOLE IVPB 500 mg 100 ml IVPB at 200 ml/hr once over 30 mins Volume: 100 db ml; Route: IVPB; Rate: 200 ml/hr; Infused Over: 30 mins; Site: right antecubital; 13:30 Drug: Ondansetron IVP 4 mg IVP once; over 2 minutes Route: IVP; Site: right antecubital;db 14:30 Follow up: Response: No adverse reaction db 14:30 Drug: Metoprolol PO 100 mg PO once Route: PO; db 19:27 Follow up: Response: No adverse reaction db 15:15 Drug: Metoprolol IVP 5 mg IVP every 5 minutes; Hold for SBP < 100 or HR < 60. x3 Route: db IVP; Site: right antecubital; 15:30 Drug: Metoprolol IVP 5 mg IVP every 5 minutes; Hold for SBP < 100 or HR < 60. x3 Route: db IVP; Site: right antecubital; 15:40 Drug: Metoprolol IVP 5 mg IVP every 5 minutes; Hold for SBP < 100 or HR < 60. x3 Route: db IVP; Site: right antecubital; 19:28 Follow up: Response: No adverse reaction; Marked relief of symptoms db 16:17 Not Given (Physician Discretion): metoprolol5 mg IVP every 5 minutes; Hold for SBP < db 100 or HR < 60. x3 16:20 Drug: NS 0.9% IV 1000 ml IV at 1000 ml once Route: IV; Rate: 1000 ml; Site: right db antecubital; 19:27 Follow up: IV Status: Completed infusion db Disposition Summary: 04/21/23 17:48 Hospitalization Ordered Notes: Hospitalization Status: Inpatient Admission ec2 Provider: Herber Voss ec2 [facility] ec2 Condition: Stable ec2 Problem: new ec2 Symptoms: have improved ec2 Bed/Room Type: Standard ec2 Room Assignment: 208(04/21/23 20:03) cg Diagnosis - Paroxysmal atrial fibrillation ec2 - Abdominal pain, Generalized ec2 Forms: - Medication Reconciliation Form ec2 - SBAR form ec2 - Leadership Thank You Letter ec2 Critical care time excluding procedures: 16:53 Critical care time: Bedside Care: 20 minutes, Consultation: 5 minutes, medication ec2 management: 10 minutes. Total time: 35 minutes Signatures: Dispatcher [employer] Margy Pham RN RN cg Stacy Jon RN RN db Jude Cardona MD MD ec2 Corrections: (The following items were deleted from the chart) 11:28 11:25 Constitutional: No acute distress ec2 ec2 15:03 12:02 COVID-19/FLU A+B+MOL.LAB.BRZ ordered. EDMS EDMS 20:03 17:48 ec2 cg
--- NOTE | 2023-04-21 18:44 | P.HP ---
Certification for Inpatient Patient admitted to: Observation With expected LOS: <2 Midnights Patient will require the following post-hospital care: None Practitioner: I am a practitioner with admitting privileges, knowledge of patient current condition, hospital course, and medical plan of care. Services: Services provided to patient in accordance with Admission requirements found in Title 42 Section 412.3 of the Code of Federal Regulations Patient History Date of Service: 04/21/23 Reason for admission: A-fib RVR, fever History of Present Illness: 73-year-old male with history of jih-edcyrfm-rkgqreyxm diabetes, atrial fibrillation on chronic anticoagulation, hypertension, hyperlipidemia presents emergency department chief complaint of chills, abdominal pain. Reports chills began this morning he also had a episode of left lower quadrant abdominal pain which is since resolved. He was evaluated in the emergency department his labs are significant for white blood cell 10.9 glucose 149 lactic acid 1.6 T. bili 1.2 UA not concerning for UTI COVID and flu swabs negative chest x-ray negative for acute finding CT abdomen pelvis also unremarkable. Patient did develop A- fib RVR in the ER with rate up to 160, he takes metoprolol 100 mg in the morning and 50 mg at night, he had not taken his metoprolol this morning he was given IV and p.o. metoprolol in the ED his rate has improved. ED provider wishes to admit under observation for A-fib RVR, fever. Allergies codeine [Codeine] Adverse Reaction (Mild, Verified 04/13/12 20:15) Nausea/Vomiting - Past Medical/Surgical History -: A-fib -: Diabetes mellitus type [id number] -: Hypertension -: Hyperlipidemia -: TURP Psychosocial/ Personal History: Lives at home with his - Family History Family History: Reviewed- Non-Contributory - Social History Smoking Status: Never smoker Alcohol use: No CD- Drugs: No Caffeine use: Yes Place of Residence: Home Review of Systems 10-point ROS is otherwise unremarkable General: Fever, Chills Gastrointestinal: Abdominal Pain Physical Examination - Physical Exam General: Alert, In no apparent distress, Oriented x3 HEENT: Atraumatic, PERRLA, Mucous membr. moist/pink, EOMI, Sclerae nonicteric Neck: Supple, 2+ carotid pulse no bruit, No LAD, Without JVD or thyroid abnormality Respiratory: Clear to auscultation bilaterally, Normal air movement Cardiovascular: Normal S1 S2, Irregular heart rate/rhythm (A-fib, rate controlled) Capillary refill: <2 Seconds Gastrointestinal: Normal bowel sounds, No tenderness Musculoskeletal: No tenderness Integumentary: No rashes Neurological: Normal speech, Normal strength at 5/5 x4 extr, Normal tone, Normal affect - Studies Laboratory Data (last 24 hrs) 04/21/23 04/21/23 04/21/23 11:50 11:50 11:50 WBC 10.90 Hgb 14.1 Hct 40.4 Plt Count 209 PT 15.6 H INR 1.42 APTT 32.4 Sodium 137 Potassium 3.9 BUN 41 H Creatinine 1.18 Glucose 149 H Total Bilirubin 1.2 H AST 30 ALT 41 Alkaline Phosphatase 65 Microbiology Data (last 24 hrs): 04/21/23 15:04 Nasopharnyx Influenza Type A Antigen Screen - Final 04/21/23 15:04 Nasopharnyx Influenza Type B Antigen Screen - Final Assessment and Plan - Plan Assessment: Chronic A-fib-now with rapid ventricular response Fever-unclear source Diabetes mellitus type [id number] Hypertension Hyperlipidemia Plan: Chronic A-fib-now with rapid ventricular response Had not taken his metoprolol this morning, given 100 mg p.o. metoprolol as well as IV, rate is improved down to around 110 currently. Continue Eliquis, metoprolol, monitor on telemetry. Fever-unclear source Flu, COVID swabs negative chest x-ray unremarkable CT abdomen pelvis negative for acute findings White blood cell count is 10, no signs of urinary tract infection. Will repeat chest x-ray tomorrow morning, obtain procalcitonin. Possible viral syndrome. Diabetes mellitus type [id number] ACHS Accu-Chek, sliding scale insulin. Hypertension Hyperlipidemia Continue medications. DVT PPX: Continue Eliquis Code status: Full Discharge Plan: Home Plan to discharge in: 24 Hours - Advance Directives Does patient have a Living Will: No Does patient have a Durable POA for Healthcare: No - Code Status/Comfort Care Code Status Assessed: Yes (Full code) Critical Care: No Time Spent Managing Pts Care (In Minutes): 55
[2023-04-21] MEDS ORDERED: ONDANSETRON 4 MG/2 ML VIAL IV PRN (21:06)
[2023-04-21 22:37] VITALS: BMI 25.9
[2023-04-21] MEDS: NA CHLORIDE 0.9% 1,000 ML IV SCH (22:45)
[2023-04-21] MEDS: APIXABAN 5 MG TABLET PO SCH (22:45)
[2023-04-21] MEDS: INSULIN REGULAR (HUMAN) 100 UNIT/ML SQ SCH (22:45)
[2023-04-22] MEDS ORDERED: ACETAMINOPHEN 325 MG TABLET PO PRN (04:41)
[2023-04-22 07:07] LABS: Absolute Lymphocytes (CBC) 0.4 K/uL (0.7-4.9); Hematocrit 35.6 % (39.6-49.0); Lymphocytes % 3.8 % (15.3-44.8); MCV 81.9 fL (80-100); MPV 8.7 fL (7.6-11.3); Platelets 144 thou/uL (152-406); RBC Red Blood Cell Count 4.35 M/uL (4.33-5.43)
[2023-04-22] MEDS: INSULIN REGULAR (HUMAN) 100 UNIT/ML SQ SCH ×4 (07:30→21:00)
[2023-04-22 07:32] LABS: Magnesium 1.5 mg/dL (1.6-2.4); Potassium 3.5 mEq/L (3.5-5.1); Thyroid Stimulating Hormone 0.741 uIU/mL (0.358-3.740)
[2023-04-22] MEDS ORDERED: ENOXAPARIN 40 MG/0.4 ML SQ SCH (09:00)
[2023-04-22] MEDS: NA CHLORIDE 0.9% 1,000 ML IV SCH (09:02)
[2023-04-22] MEDS: APIXABAN 5 MG TABLET PO SCH ×2 (09:03→20:44)
[2023-04-22] MEDS: METOPROLOL TAR 50 MG TAB PO SCH ×2 (09:03→20:45)
--- NOTE | 2023-04-22 09:17 | RAD REPORT ---
EXAM DESCRIPTION: RAD - Chest Single View - 04/22/2023 6:47 am CLINICAL HISTORY: fever, eval for developing pneumonia Chest pain. COMPARISON: Chest Single View dated 04/21/2023; Chest Single View dated 02/16/2023; Chest Single View dated 11/13/2020; Abdomen 1 View (KUB) dated 09/16/2019 FINDINGS: Portable technique limits examination quality. The lungs are grossly clear. The heart is mildly enlarged in size. No displaced fractures.No signific ant change is seen since 04/21/2023. IMPRESSION: No acute intrathoracic process suspected.
--- NOTE | 2023-04-22 10:27 | P.PN ---
Subjective Date of Service: 04/22/23 Chief Complaint: A-fib RVR, fever Subjective: Improving (Patient is doing well he was admitted with sudden onset of fever and chills) Review of Systems Unremarkable General: Weakness Physical Examination - Vital Signs Temperature: 98.3 F Blood Pressure: 113/72 Pulse: 91 Respirations: 20 Pulse Ox (%): 95 - Physical Exam General: Alert, Oriented x3 Neck: Supple Respiratory: Clear to auscultation bilaterally Cardiovascular: No edema, Irregular heart rate/rhythm Gastrointestinal: Normal bowel sounds, Soft and benign - Studies Laboratory Data (last 24 hrs) 04/21/23 04/21/23 04/21/23 11:50 11:50 11:50 WBC 10.90 Hgb 14.1 Hct 40.4 Plt Count 209 PT 15.6 H INR 1.42 APTT 32.4 Sodium 137 Potassium 3.9 BUN 41 H Creatinine 1.18 Glucose 149 H Total Bilirubin 1.2 H AST 30 ALT 41 Alkaline Phosphatase 65 Microbiology Data (last 24 hrs): 04/21/23 15:04 Nasopharnyx Influenza Type A Antigen Screen - Final 04/21/23 15:04 Nasopharnyx Influenza Type B Antigen Screen - Final Assessment And Plan - Current Problems (Diagnosis) (1) Fever Current Visit: Yes Status: Acute Plan: Patient is 73 years of age with a history of hypertension admitted with sudden onset of fever and chills x-ray shows cardiomegaly possible pneumonia patient has mild renal insufficiency cultures are pending I ordered a PA and lateral chest x-ray urinalysis is negative DC IV fluids (2) Atrial fibrillation Current Visit: Yes Status: Acute Plan: Resume metoprolol and Eliquis Qualifiers: Atrial fibrillation type: longstanding persistent Qualified Code(s): I48.11 - Longstanding persistent atrial fibrillation
--- NOTE | 2023-04-22 11:56 | RAD REPORT ---
EXAM DESCRIPTION: RAD - Chest Pa And Lat (2 Views) - 04/22/2023 11:47 am CLINICAL HISTORY: Possible pneumonia Chest pain. TECHNIQUE: PA and lateral views of the chest were obtained. FINDINGS: The lungs are hyperexpanded compatible with COPD. Trace bilateral pleural effusions. The h eart is upper limit of normal in size. No fracture or aggressive bony process. IMPRESSION: COPD without acute process identified. The USPSTF recommends annual screening for lung cancer with low-dose CT (LDCT) in adults aged 50 to 8 0 years who have a 20 pack-year smoking history and currently smoke or have quit within the past 15 y ears.
[2023-04-22] MEDS: ATORVASTATIN 20 MG TAB PO SCH (20:45)
[2023-04-22] MEDS: METFORMIN HCL 500 MG TAB PO SCH (20:45)
[2023-04-23] MEDS ORDERED: HYDRALAZINE HCL 20 MG/ML VIAL IV PRN (00:08)
[2023-04-23 03:30] VITALS: O2SAT 96
[2023-04-23 04:28] LABS: Absolute Lymphocytes (CBC) 0.7 K/uL (0.7-4.9); Hematocrit 36.5 % (39.6-49.0); Lymphocytes % 9.6 % (15.3-44.8); MCV 81.7 fL (80-100); Platelets 138 thou/uL (152-406); RBC Red Blood Cell Count 4.46 M/uL (4.33-5.43)
[2023-04-23 04:41] LABS: Magnesium 1.8 mg/dL (1.6-2.4); Potassium 4.1 mEq/L (3.5-5.1)
--- NOTE | 2023-04-23 06:59 | P.PN ---
Date of Service: 04/23/23 Subjective: 100.6 temp ~4am yesterday; afebrile since then groin was tender yesterday/this morning; improving - +surrounding erythema reports completing h. pylori treatment ~2 weeks ago - required 2 rounds; w ricki/daughter required only 1 round symptoms were typical: GERD/ulcer, no fever RLE warmth/erythema, +tender ROS: 10 point ROS as noted above, otherwise negative Physical Exam: GEN: Alert, oriented, NAD HEENT: Normal conjunctiva, sclera anicteric CV: Irregularly Irregular rate and rhythm, trace RLE edema to knee Pulm: Nonlabored respirations on room air, clear bilaterally ABD: Soft, nontender, nondistended Integumentary: R big toe plantar sore; no drainage; RLE erythema/++warmth Neuro: Normal speech, normal affect vitals reviewed Problem List: A-fib with RVR; chronic afib Fever 2/2 ?cellulitis RLE NIDDM2 Hypertension Hyperlipidemia h/o prostate cancer s/p TURP A-fib with RVR; chronic afib Had not taken his metoprolol prior to admission, given 100 mg p.o. metoprolol as well as IV rate is improved down to around high 90s currently. Continue Eliquis, metoprolol, monitor on telemetry. Fever-unclear source; 2/2 ?cellulitis RLE received rocephin and flagyl in ED CT abdomen(04/21): no acute abnormalities; other findings: b/l inguinal hernias containing fat slightly larger on right, multiple bilateral renal calculi, prominent scoliosis, spinal stenosis Flu, COVID swabs negative no evidence of UTI reports completing h. pylori treatment ~2 weeks ago (required 2 rounds of treatment) CRP: 120, procal: 26 -> 17 100.6 temp yesterday ~4am, no leukocytosis no obvious source of infection on admission 04/23 RLE with significant warmth compared to R foot and especially compared to LLE; slight tenderness concern for cellulitis reports h/o cellulitis of RLE; pt with multiple procedures along RLE CT, u/s ordered to further evaluation ID consulted NIDDM2 ACHS Accu-Chek, sliding scale insulin. Hypertension Hyperlipidemia h/o prostate cancer s/p TURP Continue medications. VTE: home eliquis Code: Full Dispo: Home pending further workup, afebrile > 24 hours
[2023-04-23] MEDS: INSULIN REGULAR (HUMAN) 100 UNIT/ML SQ SCH ×4 (07:30→20:45)
--- NOTE | 2023-04-23 08:51 | P.CNS ---
Date of Consult: 04/23/23 Reason for Consult: fever of unknown origin Chief Complaint: A-fib RVR, fever History of Present Illness: Patient is a 73-year-old male with a past medical history of diabetes mellitus type 2, atrial fibrillation, hyperlipidemia, hypertension who presented to the ED with complaints of abdominal pain left lower quadrant and chills. Influenza and COVID negative. Urinalysis not suggestive of UTI. CT abdomen pelvis unremarkable. Patient was found to be in A-fib with RVR in the ED and was admitted under observation for A-fib RVR and fever. Infectious disease was consulted. Allergies codeine [Codeine] Adverse Reaction (Mild, Verified 04/13/12 20:15) Nausea/Vomiting Home medications list reviewed: Yes Home Medications: Apixaban [Eliquis] 5 mg PO BID 04/21/23 Atorvastatin Calcium [Lipitor] 20 mg PO BEDTIME 04/21/23 Cholecalciferol (Vitamin D3) [Vitamin D3] 2,000 unit PO DAILY 04/21/23 Cinnamon Bark [Cinnamon] 2,000 mg PO DAILY 04/21/23 Empagliflozin [Jardiance] 0.5 tab PO DAILY 04/21/23 Losartan Potassium [Cozaar] 100 mg PO DAILY 04/21/23 Menthol [Bengay] 1 appl TOP TID PRN 04/21/23 Metformin HCl 500 mg PO BID 04/21/23 Metoprolol Succinate [Toprol Xl*] 50 mg PO BEDTIME 04/21/23 Metoprolol Succinate [Toprol Xl*] 100 mg PO DAILY 04/21/23 Potassium Bicarbonate/Cit AC [Klor-Con-Ef 25 Meq Tab Eff] 1 tab PO DAILY 04/21/23 hydroCHLOROthiazide [Hydrochlorothiazide] 25 mg PO DAILY 04/21/23 - Past Medical/Surgical History Diabetic: Yes -: A-fib -: Diabetes mellitus type [id number] -: Hypertension -: Hyperlipidemia -: H. Pylori -: TURP -: BLE knee sx -: left shoulder sx Psychosocial/ Personal History: Lives at home with his - Social History Alcohol use: No CD- Drugs: No Caffeine use: Yes Place of Residence: Home Review of Systems Musculoskeletal: Other (right groin discomfort/pain) Integumentary: Other (RLE erythema) Physical Examination Temp Pulse Resp BP Pulse Ox 98.2 F 99 H 18 154/101 H 96 04/23/23 04:00 04/23/23 04:00 04/23/23 04:00 04/23/23 04:00 04/23/23 04:00 General: Alert, In no apparent distress, Oriented x3 HEENT: Atraumatic, Normocephalic Neck: Supple, JVD not distended Respiratory: Clear to auscultation bilaterally, Normal air movement Cardiovascular: No edema, Irregular heart rate/rhythm Gastrointestinal: Normal bowel sounds, Soft and benign Integumentary: Erythema (RLE), Warmth (RLE), Other (stasis dermatitis RLE) Neurological: Normal speech, Normal tone, Normal affect Lymphatics: Inguinal lymphadenopathy Laboratory data: Reviewed Microbiology data: Reviewed Imagings Data: -CT abdomen pelvis w contrast 04/21: "Liver, spleen, pancreas and adrenals unrem arkable. Multiple, bilateral renal calculi. The largest calculus is present within the right kidney measuring 9 millimeters. No hydronephrosis. Small right renal cyst. No evidence diverticulitis. Prostate gland is mildly enlarged. There appears to have been a TURP. Small to moderate right and small left inguinal hernias contain fat. Prominent scoliosis involves the spine. Spondylosis lumbar spine resulting in spinal stenosis." Conclusions/Impression: Problem list Atrial Fibrillation with RVR Fever Type 2 diabetes mellitus Hypertension Hyperlipidemia Hx prostate cancer Fever -Temp 100.6 F on 04/22 -Now afebrile >24 hours -Negative influenza a and B -Negative COVID -Urinalysis not suggestive of UTI -No leukocytosis - blood cultures 04/21: no growth to date - Right lower extremity with erythema and warmth Recommendations - Fevers, suspected cellulitis RLE: started on Augmentin PO 04/23. Continue for 7-10 days. - Continue to monitor fever trends. - PRN tylenol for temp >100.4 F Case discussed with Wesly Whiting who is in agreement with plan.
[2023-04-23] MEDS: METOPROLOL TAR 50 MG TAB PO SCH ×2 (08:56→20:44)
[2023-04-23] MEDS: METFORMIN HCL 500 MG TAB PO SCH ×2 (08:56→20:45)
[2023-04-23] MEDS: APIXABAN 5 MG TABLET PO SCH ×2 (08:56→20:28)
[2023-04-23] MEDS: HOME MED 1 EA UNK (Empagliflozin [Jardiance] 25 MG Tablet) PO SCH (08:57)
[2023-04-23] MEDS ORDERED: hydroCHLOROthiazide 25 MG TAB PO SCH (09:00)
[2023-04-23] MEDS ORDERED: HOME MED 1 EA UNK (Losartan Potassium [Cozaar] 100 MG Tablet) PO SCH (09:00)
--- NOTE | 2023-04-23 17:08 | EKG ---
Test Date: 2023-04-21 Test Time: 11:46:51 Joinery Machinist: GILBERT MEASUREMENT RESULTS: Intervals: Rate: 117 IA: QRSD: 158 QT: 364 QTc: 507 [place]: P: IA: QRS: 251 T: 29 INTERPRETIVE STATEMENTS: Atrial fibrillation with rapid ventricular response Right bundle branch block Abnormal ECG Compared to ECG 02/16/2023 11:42:05 Left-axis deviation no longer present Electronically Signed On 04-23-23 17:04:48 CDT by Terrance Karimi
[2023-04-23] MEDS: AMOX/K CLAV 875 MG TAB PO SCH (20:28)
[2023-04-23] MEDS: ATORVASTATIN 20 MG TAB PO SCH (20:28)
--- NOTE | 2023-04-23 20:28 | RAD REPORT ---
EXAM DESCRIPTION: CT - Lower Extremity W/ Cont - 04/23/2023 8:08 pm CLINICAL HISTORY: R lower leg erythema/swelling, cellulitis vs absce COMPARISON: No comparisons FINDINGS: There is significant edema, soft tissue swelling and subcutaneous reticulation of the fat seen right lower leg. Venous varicosities are present as well. A localized fluid collection to indica te abscess is not clearly seen. No soft tissue gas evident. No underlying osteomyelitis. No soft tissue mass or hematoma. There is a large Curry's cyst suspected measuring 5.[address] scans are performed using dose optimization technique as appropriate and may include automated exposure control or mA/KV adjustment according to patient size. IMPRESSION: The findings favor soft tissue infection/cellulitis. No soft tissue gas or localized abs cess detected.
[2023-04-24 03:59] LABS: Absolute Lymphocytes (CBC) 0.9 K/uL (0.7-4.9); Hematocrit 35.8 % (39.6-49.0); MCV 81.5 fL (80-100); MPV 8.9 fL (7.6-11.3); Platelets 161 thou/uL (152-406); RBC Red Blood Cell Count 4.39 M/uL (4.33-5.43)
[2023-04-24 04:15] LABS: C-Reactive Protein 62.3 mg/L (<3.00); Potassium 4.3 mEq/L (3.5-5.1)
[2023-04-24 06:42] VITALS: TEMP 97.5
[2023-04-24] MEDS: INSULIN REGULAR (HUMAN) 100 UNIT/ML SQ SCH (07:30)
--- NOTE | 2023-04-24 07:43 | RAD REPORT ---
EXAM DESCRIPTION: US - Extrem Venous W Compress Devaughn - 04/24/2023 12:09 am CLINICAL HISTORY: r/o DVT, right is primary focus Bilateral leg edema and swelling. COMPARISON: Extrem Venous W Compress Devaughn dated 03/10/2022 TECHNIQUE: Real-time sonographic interrogation of the left and right lower extremity deep venous sys tems was performed. FINDINGS: Normal compressibility, flow augmentation, phasic flow and spontaneous flow is identified in both the left and right lower extremity deep venous systems. IMPRESSION: No sonographic evidence of left or right lower extremity deep venous thrombosis.
--- NOTE | 2023-04-24 08:10 | P.PN ---
Date of Service: 04/24/23 Chief Complaint: A-fib RVR, fever Subjective: Patient seen and examined at bedside. Sitting up on side of bed eating breakfast. In no apparent distress. He denies any new or worsening complaints at this time. Pending discharge home. Physical Examination Temp Pulse Resp BP Pulse Ox 97.5 F 80 18 149/96 H 98 04/24/23 04:00 04/24/23 04:00 04/24/23 04:00 04/24/23 04:00 04/24/23 04:00 General: Alert, In no apparent distress, Oriented x3 HEENT: Atraumatic, Normocephalic Neck: Supple, JVD not distended Respiratory: Clear to auscultation bilaterally, Normal air movement Cardiovascular: No edema, Irregular heart rate/rhythm Gastrointestinal: Normal bowel sounds, Soft and benign Integumentary: Erythema and warmth of RLE. Stasis dermatitis RLE. Neurological: Normal speech, Normal tone, Normal affect Laboratory data: Reviewed Microbiology data: Reviewed Imagings Data: -CT abdomen pelvis w contrast 04/21: "Liver, spleen, pancreas and adrenals unremarkable. Multiple, bilateral renal calculi. The largest calculus is present within the right kidney measuring 9 millimeters. No hydronephrosis. Small right renal cyst. No evidence diverticulitis. Prostate gland is mildly enlarged. There appears to have been a TURP. Small to moderate right and small left inguinal hernias contain fat. Prominent scoliosis involves the spine. Spondylosis lumbar spine resulting in spinal stenosis." Medications List: Reviewed Assessment and Plan Problem list Atrial Fibrillation with RVR Fever Type 2 diabetes mellitus Hypertension Hyperlipidemia Hx prostate cancer Fever, resolved -Afebrile >24 hours -Negative influenza a and B -Negative COVID -Urinalysis not suggestive of UTI -No leukocytosis - blood cultures 04/21: no growth to date - Right lower extremity with erythema and warmth Recommendations - Fevers, suspected cellulitis RLE: started on Augmentin PO 04/23. Continue for 7 days. - Continue to monitor fever trends. - PRN tylenol for temp >100.4 F - Follow up with PCP as outpatient Case discussed with Wesly Whiting who is in agreement with plan.
[2023-04-24] MEDS: HOME MED 1 EA UNK (Empagliflozin [Jardiance] 25 MG Tablet) PO SCH (08:29)
[2023-04-24] MEDS: METFORMIN HCL 500 MG TAB PO SCH (08:30)
[2023-04-24] MEDS: AMOX/K CLAV 875 MG TAB PO SCH (08:30)
[2023-04-24] MEDS: APIXABAN 5 MG TABLET PO SCH (08:30)
[2023-04-24] MEDS: METOPROLOL TAR 50 MG TAB PO SCH (08:36)
[2023-04-24 08:59] VITALS: BP 150/102
--- NOTE | 2023-04-24 09:01 | P.DS ---
Admission Date: 04/23/23 Discharge Date: 04/24/23 Disposition: ROUTINE DISCHARGE Discharge Condition: FAIR Reason for Admission: A-fib RVR, fever Brief History of Present Illness: 73-year-old male with history of bas-lxfbqft-beorbqxgx diabetes, atrial fibrillation on chronic anticoagulation, hypertension, hyperlipidemia presented to the emergency department with chief complaint of chills, abdominal pain. Patient described left lower quadrant abdominal pain. He was evaluated in the emergency department his labs are significant for white blood cell 10.9 glucose 149 lactic acid 1.6 T. bili 1.2 UA not concerning for UTI, COVID and flu swabs negative, chest x-ray negative for acute finding CT abdomen pelvis also unremarkable. Patient did develop A-fib RVR in the ER with rate up to 160, he takes metoprolol 100 mg in the morning and 50 mg at night, he had not taken his metoprolol so he was given IV and p.o. metoprolol in the ED and his rate has improved. Patient admitted for further management. Hospital Course: Diagnosis A-fib with RVR; chronic afib Fever 2/2 cellulitis RLE NIDDM2 Hypertension Hyperlipidemia h/o prostate cancer s/p TURP Patient admitted admitted to the medical floor and the following medical problems addressed: A-fib with RVR; chronic afib Rate is improved on his home metoprolol regimen. Continue Eliquis, metoprolol. Fever-unclear source; 2/2 cellulitis RLE received rocephin and flagyl in ED CT abdomen(04/21): no acute abnormalities; other findings: b/l inguinal hernias containing fat slightly larger on right, multiple bilateral renal calculi, prominent scoliosis, spinal stenosis Flu, COVID swabs negative no evidence of UTI reports completing h. pylori treatment ~2 weeks ago (required 2 rounds of treatment) CRP: 120, procal: 26 -> 17 Patient had intermittent fever, no leukocytosis. CT right lower extremity: significant edema, soft tissue swelling and subcutaneous reticulation of the fat seen right lower leg. Venous varicosities are present as well. A localized fluid collection to indicate abscess is not clearly seen. No soft tissue gas evident No fever for 48 hours. Patient reports feeling at baseline. Seen by infectious disease and patient placed on oral Augmentin for cellulitis. Patient discharged with oral Augmentin. NIDDM2 Managed with insulin sliding scale. Home regimen resumed on discharge. Hypertension Hyperlipidemia h/o prostate cancer s/p TURP Continued home medications. Vital Signs/Physical Exam: Temp Pulse Resp BP Pulse Ox 97.5 F 84 17 150/102 H 95 04/24/23 08:00 04/24/23 08:00 04/24/23 08:00 04/24/23 08:00 04/24/23 08:00 Laboratory Data at Discharge: WBC 6.70 thou/uL (4.3-10.9) 04/24/23 02:37 Hgb 12.1 g/dL (13.6-17.9) L 04/24/23 02:37 Hct 35.8 % (39.6-49.0) L 04/24/23 02:37 Plt Count 161 thou/uL (152-406) 04/24/23 02:37 PT 15.6 SECONDS (9.5-12.5) H 04/21/23 11:50 INR 1.42 04/21/23 11:50 APTT 32.4 SECONDS (24.3-36.9) 04/21/23 11:50 Sodium 134 mEq/L (136-145) L 04/24/23 02:37 Potassium 4.3 mEq/L (3.5-5.1) 04/24/23 02:37 BUN 28 mg/dL (7-18) H 04/24/23 02:37 Creatinine 1.15 mg/dL (0.70-1.30) 04/24/23 02:37 Glucose 126 mg/dL (74-106) H 04/24/23 02:37 Magnesium 1.8 mg/dL (1.6-2.4) 04/23/23 03:21 Total Bilirubin 1.2 mg/dL (0.2-1.0) H 04/21/23 11:50 AST 30 U/L (15-37) 04/21/23 11:50 ALT 41 U/L (16-61) 04/21/23 11:50 Alkaline Phosphatase 65 U/L (45-117) 04/21/23 11:50 Home Medications: Apixaban [Eliquis] 5 mg PO BID 04/21/23 Atorvastatin Calcium [Lipitor] 20 mg PO BEDTIME 04/21/23 Cholecalciferol (Vitamin D3) [Vitamin D3] 2,000 unit PO DAILY 04/21/23 Cinnamon Bark [Cinnamon] 2,000 mg PO DAILY 04/21/23 Empagliflozin [Jardiance] 0.5 tab PO DAILY 04/21/23 Losartan Potassium [Cozaar] 100 mg PO DAILY 04/21/23 Menthol [Bengay] 1 appl TOP TID PRN 04/21/23 Metformin HCl 500 mg PO BID 04/21/23 Metoprolol Succinate [Toprol Xl*] 50 mg PO BEDTIME 04/21/23 Metoprolol Succinate [Toprol Xl*] 100 mg PO DAILY 04/21/23 Potassium Bicarbonate/Cit AC [Klor-Con-Ef 25 Meq Tab Eff] 1 tab PO DAILY 04/21/23 hydroCHLOROthiazide [Hydrochlorothiazide] 25 mg PO DAILY 04/21/23 Amox/Clavulanate [Augmentin 875-125 Tab*] 875 mg PO BID #14 tab 04/24/23 New Medications: Amox/Clavulanate [Augmentin 875-125 Tab*] 875 mg PO BID #14 tab Diet: ADA Activity: Ad helen Followup: NONE,NONE [Primary Care Provider] - 1-2 Weeks Time spent managing pt's care (in minutes): 35
== END 2023-04-24 12:15 | disposition home or self-care (01) | DRG 603 ==
LOC: ER 11:19 → ERHOLD 18:24 → 2ND 20:56 → OBSVTOIN 04-23 13:57
PROVIDERS: ADMIT Internal Medicine Sleep Medicine; ATTEND Internal Medicine
PROC: 5A09357 Assistance with Respiratory Ventilation, Less than 24 Consecutive Hours, Continuous Positive Airway Pressure (ICD-10-PCS; principal; 2023-04-23)
DX: L03.115 Cellulitis of right lower limb (principal); I48.11 Longstanding persistent atrial fibrillation; I10 Essential (primary) hypertension; E78.00 Pure hypercholesterolemia, unspecified; E11.9 Type 2 diabetes mellitus without complications; N20.0 Calculus of kidney; M48.00 Spinal stenosis, site unspecified; K40.90 Unilateral inguinal hernia, without obstruction or gangrene, not specified as recurrent; Z88.5 Allergy status to narcotic agent; Z79.01 Long term (current) use of anticoagulants; Z79.84 Long term (current) use of oral hypoglycemic drugs; Z85.46 Personal history of malignant neoplasm of prostate; Z79.899 Other long term (current) drug therapy; Z20.822 Contact with and (suspected) exposure to COVID-19
CPT/HCPCS: 36415; 71045; 71046; 73701; 74177; 80048; 80053; 81001; 82947; 83605; 83735; 84145; 84439; 84443; 85025; 85610; 85730; 86140; 87040; 87635; 87804; 93005; 93970; 94660; 96361; 96365; 96375; 99285; G0378; J0360; J0696; J1815; J2405; J7030; Q9967

== ENCOUNTER 2023-08-12 10:04 | Inpatient (IN) | payer OTHER ==
[2023-08-12 10:44] LABS: Absolute Lymphocytes (CBC) 0.5 K/uL (0.7-4.9); Hematocrit 44.9 % (39.6-49.0); Lymphocytes % 8.3 % (15.3-44.8); MCV 81.8 fL (80-100); MPV 8.6 fL (7.6-11.3); Platelets 240 thou/uL (152-406); RBC Red Blood Cell Count 5.49 M/uL (4.33-5.43)
[2023-08-12 10:45] LABS: Protime INR 1.39
[2023-08-12 11:03] LABS: Albumin 3.7 g/dL (3.4-5.0); Bilirubin Direct 0.4 mg/dL (0-0.2); Bilirubin Indirect, Calculated 0.6 mg/dL (0.2-0.8); Magnesium 1.8 mg/dL (1.6-2.4); Protein, Total 7.4 g/dL (6.4-8.2); Troponin High Sensitivity 7.7 pg/mL (<58.9)
--- NOTE | 2023-08-12 11:13 | RAD REPORT ---
EXAM DESCRIPTION: Jeannie Single View08/12/2023 10:57 am CLINICAL HISTORY: Shortness of breath COMPARISON: 2022 FINDINGS: Lungs are hyperaerated. The lungs appear clear of acute infiltrate. The heart is mildly to moderately enlarged IMPRESSION: No acute abnormalities displayed
--- NOTE | 2023-08-12 11:15 | RAD REPORT ---
EXAM DESCRIPTION: RAD - Foot Left 3 View - 08/12/2023 10:57 am CLINICAL HISTORY: Left Foot swelling FINDINGS: Hallux valgus deformity. Mild lateral subluxation of the first proximal phalanx. Narrowing of the second MTP joint with osteophytes. Periosteal deposition base of the second proximal phalanx could be secondary to inflammation or prior trauma. Large plantar calcaneal spur
--- NOTE | 2023-08-12 11:16 | RAD REPORT ---
EXAM DESCRIPTION: CT - Head Brain Wo Cont - 08/12/2023 10:51 am CLINICAL HISTORY: Dizziness COMPARISON: 2019 TECHNIQUE: Computed axial tomography of the head was obtained. IV contrast was not requested. All CT scans are performed using dose optimization technique as appropriate and may include automated exposure control or mA/KV adjustment according to patient size. FINDINGS: An intracranial bleed is not seen The ventricles are normal in caliber No extra-axial fluid collection is noted. Mild to moderate low-density areas within periventricular, deep and subcortical white matter likely r epresent ischemic changes secondary to small vessel disease. Fluid within the sinuses/ mastoids is not seen. IMPRESSION: No acute intracranial abnormality is seen If patient's symptoms persist MRI of the brain would be recommended
[2023-08-12] MEDS ORDERED: VANCOMYCIN 1 GM/VIAL ONE (11:36)
[2023-08-12] MEDS ORDERED: VANCOMYCIN 500 MG/VIAL ONE (11:37)
[2023-08-12] MEDS ORDERED: NA CHLORIDE 0.9% 1,000 ML ONE (11:37)
[2023-08-12] MEDS ORDERED: NA CHLORIDE 0.9% 500 ML ONE (11:37)
[2023-08-12 12:34] LABS: Specific Gravity 1.019 (1.005-1.030); Urine Bacteria None Seen /HPF (<20); Urine Bilirubin NEGATIVE (Negative); Urine Blood Negative (Negative); Urine Clarity Clear (Clear); Urine Color Light-Yellow (Yellow); Urine Glucose 4+ (Over) (Negative); Urine Mucus Slight /HPF (None Seen); Urine Protein TRACE (Negative); Urine RBC <5 /HPF (None Seen); Urine Urobilinogen Normal (Normal)
[2023-08-12] MEDS ORDERED: ALBUTEROL 2.5 MG/3 ML NEB SOL NEB PRN (12:59)
[2023-08-12] MEDS ORDERED: ACETAMINOPHEN 500 MG TAB PO PRN (12:59)
[2023-08-12] MEDS ORDERED: MORPHINE 2 MG/ML SYR IV PRN (12:59)
[2023-08-12] MEDS: IPRATROPIUM BROM 0.5MG/2.5ML NEB SCH (13:00)
--- NOTE | 2023-08-12 13:17 | ER ---
Nurse's Notes [facility] Name: Luca Grimes Age: 73 yrs Sex: Male : 1950 Arrival Date: 08/12/2023 Time: 10:04 Bed 14 Private MD: Diagnosis: Severe sepsis without septic shock;TANGELA;Dizziness and giddiness;Diabetes mellitus due to underlying condition with hyperglycemia Presentation: 08/12 10:07 Chief complaint: Spouse and/or significant other states: "We were getting ready for jew and I told him we needed to check his blood pressure and it was really low, and I checked it again it was even lower." Pt reports that he was feeling shaky and a little short of breath at home while eating breakfast and believed it was because his blood sugar may have been a little low. Pt reports feeling better at this time. Coronavirus screen: Client denies travel out of the [place] in the last 14 days. Ebola Screen: Patient denies exposure to infectious person. Patient denies travel to an Ebola-affected area in the 21 days before illness onset. Initial Sepsis Screen: Does the patient meet any 2 criteria? No. Patient's initial sepsis screen is negative. Does the patient have a suspected source of infection? No. Patient's initial sepsis screen is negative. Risk Assessment: Do you want to hurt yourself or someone else? Patient reports no desire to harm self or others. Onset of symptoms was August 12, 2023. 10:07 Method Of Arrival: Ambulatory ss 10:07 Acuity: MARY 2 ss Triage Assessment: 10:45 General: Appears in no apparent distress. Behavior is calm, cooperative, appropriate bp for age. Pain: Denies pain. Historical: - Allergies: 10:30 Codeine; ss - PMHx: 10:30 Diabetes - NIDDM; High Cholesterol; Hypertension; Atrial fibrillation; ss - Immunization history:: Client reports receiving the 2nd dose of the Covid vaccine. - Social history:: Smoking status: Patient denies any tobacco usage or history of. Screenin:31 [facility] ED Fall Risk Assessment (Adult) History of falling in the last 3 months, ss including since admission No falls in past 3 months (0 pts). Abuse screen: Denies threats or abuse. Denies injuries from another. Nutritional screening: No deficits noted. Tuberculosis screening: Never had TB. Assessment: 10:30 General: SEE TRIAGE NOTE. bp 11:30 Reassessment: No changes from previously documented assessment. Patient is alert, bp oriented x 3, equal unlabored respirations, skin warm/dry/pink. 13:00 Reassessment: ADMIT INITIATED. bp 14:00 Reassessment: No changes from previously documented assessment. Patient is alert, bp oriented x 3, equal unlabored respirations, skin warm/dry/pink. 15:49 Reassessment: REPORT GIVEN TO GIOVANNA CORREA. db 15:52 Reassessment: Patient appears in no apparent distress at this time. Patient is alert, db oriented x 3, equal unlabored respirations, skin warm/dry/pink. Vital Signs: 10:07 BP 110 / 79; Pulse 123; Resp 21; Temp 97.9(TE); Pulse Ox 92% on R/A; Weight 94.8 kg; ss Height 6 ft. 4 in. ; Pain 0/10; 10:44 BP 116 / 81; Pulse 67; Resp 16; Temp 98.3; Pulse Ox 100% ; bp 11:46 BP 100 / 71; Pulse 99; Resp 20; Pulse Ox 94% ; bp 13:00 BP 138 / 99; Pulse 96; Resp 17; Pulse Ox 95% ; bp 14:11 BP 107 / 78; Pulse 87; Resp 18; Pulse Ox 95% ; bp 15:00 BP 119 / 87; Pulse 95; Resp 18; Pulse Ox 96% on R/A; db 10:07 Body Mass Index 25.44 (94.80 kg, 193.04 cm) ss 10:07 Pain Scale: Adult ss ED Course: 10:06 Patient arrived in ED. mg5 10:10 Cordell Vásquez, GIOVANNA is Primary Nurse. bp 10:12 Khushi Price FNP-C is PHCP. snw 10:12 Lisa Smith MD is Attending Physician. snw 10:30 Triage completed. ss 10:30 Arm band placed on right wrist. ss 10:31 Patient has correct armband on for positive identification. ss 10:38 Initial lab(s) drawn, by ia, sent to lab. First set of blood cultures drawn by me, [id number] Second set of blood cultures drawn by me, EKG done, by ED staff. Inserted saline lock: 20 gauge in right antecubital area, using aseptic technique. Blood collected. 10:53 CT Head Brain wo Cont In Process Unspecified. EDMS 10:59 XRAY Chest (1 view) In Process Unspecified. EDMS 10:59 Foot Left 3 View XRAY In Process Unspecified. EDMS 12:13 initiated a transfer with Alva from the [place] transfer center/ Per [employer] a eb transfer must be initiated. 13:14 Grabiel Paz MD is Hospitalizing Provider. snw 14:44 [place] notification ID number [id number]. eb 15:52 Provided Education on: ADMIT. db 15:52 No provider procedures requiring assistance completed. Patient admitted, IV remains in db place. Administered Medications: 11:46 Drug: NS 0.9% IV 1000 ml IV at 1 bolus Per protocol; 1000 mL bolus Route: IV; Rate: 1 bp bolus; Site: right antecubital; 11:46 Drug: vancoMYCIN IVPB 1.5 grams IVPB at calculated rate once Route: IVPB; Rate: bp calculated rate; Site: right antecubital; Medication: 15:52 VIS not applicable for this client. db Outcome: 13:16 Decision to Hospitalize by Provider. snw 15:52 Admitted to Med/surg Report called to MADELINE db 15:52 Condition: stable 15:52 Instructed on the need for admit, 16:00 Patient left the ED. db Signatures: Dispatcher [employer] EDKhushi Flores, PRACTICAL NURSING TEACHER-C PRACTICAL NURSING TEACHER-Csnw Ashley Schroeder, RN RN Cordell Coello RN RN Germania Bose Danielle RN RN Padmaja Rosado 5 Kolton Hernández j1
--- NOTE | 2023-08-12 13:17 | EDPHYS ---
Physician Documentation [facility] Name: Luca Grimes Age: 73 yrs Sex: Male : 1950 Arrival Date: 08/12/2023 Time: 10:04 Bed 14 Private MD: ED Physician Lisa Smith HPI: 08/12 10:36 This 73 yrs old Male presents to ER via Ambulatory with complaints of AFIB. snw 10:36 Onset: The symptoms/episode began/occurred acutely. Associated signs and symptoms: snw Pertinent positives: dizziness, weakness. It is unknown whether or not the patient has had similar symptoms in the past. dx with a. amos last year. Takes Eliquis. Historical: - Allergies: 10:30 Codeine; ss - PMHx: 10:30 Diabetes - NIDDM; High Cholesterol; Hypertension; Atrial fibrillation; ss - Immunization history:: Client reports receiving the 2nd dose of the Covid vaccine. - Social history:: Smoking status: Patient denies any tobacco usage or history of. ROS: 13:17 Eyes: Negative for injury, pain, redness, and discharge, ENT: Negative for injury, snw pain, and discharge, Neck: Negative for injury, pain, and swelling, 13:17 Respiratory: Negative for shortness of breath, cough, wheezing, and pleuritic chest pain, Abdomen/GI: Negative for abdominal pain, nausea, vomiting, diarrhea, and constipation, Back: Negative for injury and pain, : Negative for injury, bleeding, discharge, and swelling, MS/Extremity: Negative for injury and deformity, Skin: Negative for injury, rash, and discoloration, Psych: Negative for depression, anxiety, suicide ideation, homicidal ideation, and hallucinations, 13:17 Constitutional: Positive for fatigue, malaise, generalized weakness, 13:17 Cardiovascular: Positive for palpitations, 13:17 Neuro: Positive for dizziness, Exam: 10:34 Head/Face: Normocephalic, atraumatic. Eyes: Pupils equal round and reactive to light, snw extra-ocular motions intact. Lids and lashes normal. Conjunctiva and sclera are non-icteric and not injected. Cornea within normal limits. Periorbital areas with no swelling, redness, or edema. ENT: Nares patent. No nasal discharge, no septal abnormalities noted. Tympanic membranes are normal and external auditory canals are clear. Oropharynx with no redness, swelling, or masses, exudates, or evidence of obstruction, uvula midline. Mucous membranes moist. Neck: Trachea midline, no thyromegaly or masses palpated, and no cervical lymphadenopathy. Supple, full range of motion without nuchal rigidity, or vertebral point tenderness. No Meningismus. Chest/axilla: Normal chest wall appearance and motion. Nontender with no deformity. No lesions are appreciated. 10:34 Respiratory: Lungs have equal breath sounds bilaterally, clear to auscultation and percussion. No rales, rhonchi or wheezes noted. No increased work of breathing, no retractions or nasal flaring. Abdomen/GI: Soft, non-tender, with normal bowel sounds. No distension or tympany. No guarding or rebound. No evidence of tenderness throughout. Back: No spinal tenderness. No costovertebral tenderness. Full range of motion. MS/ Extremity: Pulses equal, no cyanosis. Neurovascular intact. Full, normal range of motion. Neuro: Awake and alert, GCS 15, oriented to person, place, time, and situation. Cranial nerves II-XII grossly intact. Motor strength 5/5 in all extremities. Sensory grossly intact. Cerebellar exam normal. Normal gait. Psych: Awake, alert, with orientation to person, place and time. Behavior, mood, and affect are within normal limits. 10:34 Constitutional: The patient appears alert, awake, 10:34 Cardiovascular: Rate: tachycardic, Rhythm: regular, Pulses: no pulse deficits are appreciated, Heart sounds: gallop, S3 noted, Edema: is not appreciated, 10:34 Skin: Appearance: Color: pale, Temperature: normal temperature, Moisture: normal moisture, cellulitis, that is minimal, on the left foot, second distal phalanx, Vital Signs: 10:07 BP 110 / 79; Pulse 123; Resp 21; Temp 97.9(TE); Pulse Ox 92% on R/A; Weight 94.8 kg; ss Height 6 ft. 4 in. ; Pain 0/10; 10:44 BP 116 / 81; Pulse 67; Resp 16; Temp 98.3; Pulse Ox 100% ; bp 11:46 BP 100 / 71; Pulse 99; Resp 20; Pulse Ox 94% ; bp 13:00 BP 138 / 99; Pulse 96; Resp 17; Pulse Ox 95% ; bp 14:11 BP 107 / 78; Pulse 87; Resp 18; Pulse Ox 95% ; bp 15:00 BP 119 / 87; Pulse 95; Resp 18; Pulse Ox 96% on R/A; db 10:07 Body Mass Index 25.44 (94.80 kg, 193.04 cm) ss 10:07 Pain Scale: Adult ss MDM: 10:24 Patient medically screened. snw 10:37 Differential diagnosis: viral Infection, bacterial infection, sepsis, a. fib, CVA. Data snw reviewed: vital signs, nurses notes, lab test result(s), EKG, radiologic studies. Consideration of Admission/Observation Escalation of care including admission/observation considered. 13:17 Differential diagnosis: arrythmia, dehydration, sepsis. I considered the following snw discharge prescriptions or medication management in the emergency department Medications were administered in the Emergency Department. See MAR. Care significantly affected by the following chronic conditions: Diabetes, Hypertension, Congestive Heart Failure. Post IV fluid administration reassessment for Sepsis: Client not prescribed the 30 mL/kg IVF due to: no shock, lactate less than 4 Neuro: Neurological examination improved from previous exam. Cardio: Cardiovascular examination improved from previous exam. Heart rate and blood pressure have improved. Respiratory: Respiratory exam improved from previous exam. Counseling: I had a detailed discussion with the patient and/or guardian regarding the historical points, exam findings, and any diagnostic results supporting the discharge/admit diagnosis, lab results, radiology results, the need for further work-up and treatment in the hospital. Response to treatment: the patient's symptoms have markedly improved after treatment. 13:42 ED course: no return call from [place] for transfer, pt would like to stay at [facility]. formerly [facility] 08/12 10:12 Order name: Basic Metabolic Panel; Complete Time: 11:42 w 08/12 10:12 Order name: CBC with Diff; Complete Time: 11:w 08/12 10:12 Order name: LFT's; Complete Time: :42 snw 08/12 10:12 Order name: Magnesium; Complete Time: :42 w 08/12 10:12 Order name: NT PRO-BNP; Complete Time: 11:42 snw 08/12 10:12 Order name: PT-INR; Complete Time: 11:w 08/12 10:12 Order name: Troponin HS; Complete Time: 11:42 snw 08/12 10:18 Order name: Blood Culture Adult (2) snw 08/12 10:18 Order name: Lactate w/ 2H reflex if indic.; Complete Time: 11:42 snw 08/12 10:18 Order name: Urinalysis w/ reflexes; Complete Time: 12:40 snw 08/12 10:18 Order name: TSH; Complete Time: 11:42 snw 08/12 10:27 Order name: Glucose, Ancillary Testing; Complete Time: 10:40 EDMS 08/12 13:08 Order name: NT PRO-BNP; Complete Time: 14:19 EDMS 08/12 13:08 Order name: T4 Free; Complete Time: 14:19 EDMS 08/12 13:08 Order name: Thyroid Stimulating Hormone; Complete Time: 14:19 EDMS 08/12 13:08 Order name: Basic Metabolic Panel EDMS 08/12 13:08 Order name: Basic Metabolic Panel EDMS 08/12 13:08 Order name: Basic Metabolic Panel EDMS 08/12 13:08 Order name: Basic Metabolic Panel EDMS 08/12 13:08 Order name: CBC with Automated Diff EDMS 08/12 13:08 Order name: CBC with Automated Diff EDMS 08/12 13:08 Order name: CBC with Automated Diff EDMS 08/12 13:08 Order name: CBC with Automated Diff EDMS / 13:08 Order name: Lipid Profile EDMS 08/12 13:08 Order name: Lipid Profile EDMS 08/12 13:08 Order name: Magnesium EDMS / 13:08 Order name: Magnesium EDMS 08/12 13:08 Order name: Magnesium EDMS / 13:08 Order name: Magnesium EDMS 08/12 13:08 Order name: Phosphorus EDMS 08/12 13:08 Order name: Phosphorus EDMS 08/12 13:08 Order name: Phosphorus EDMS 08/12 13:08 Order name: Phosphorus EDMS 08/12 13:08 Order name: Protime (+INR) EDMS 08/12 13:08 Order name: Protime (+INR) EDMS 08/12 13:08 Order name: Urinalysis w/ reflexes EDMS 08/12 14:07 Order name: Lactate Sepsis 2 HR Follow-up; Complete Time: 14:07 EDMS 08/12 10:12 Order name: XRAY Chest (1 view); Complete Time: 11:42 08/12 10:18 Order name: CT Head Brain wo Cont; Complete Time: 11:42 08/12 10:18 Order name: Foot Left 3 View XRAY; Complete Time: 11:42 08/12 10:12 Order name: EKG; Complete Time: 10:13 08/12 10:12 Order name: Cardiac monitoring; Complete Time: 10:37 08/12 10:12 Order name: EKG - Nurse/Tech; Complete Time: 10:37 08/12 10:12 Order name: IV Saline Lock; Complete Time: 10:37 08/12 10:12 Order name: Labs collected and sent; Complete Time: 10:37 08/12 10:12 Order name: O2 Per Protocol; Complete Time: 10:37 08/12 10:12 Order name: O2 Sat Monitoring; Complete Time: 10:38 08/12 10:18 Order name: Accucheck; Complete Time: 10:43 08/12 10:18 Order name: IV Saline Lock - Large Bore; Complete Time: 10:37 08/12 10:18 Order name: Vital Signs; Complete Time: 10:37 08/12 10:42 Order name: Labs - recollect needed: recollect 2nd set of blood cultures/ same time / eb same sight on both sets; Complete Time: 11:18 Administered Medications: 11:46 Drug: NS 0.9% IV 1000 ml IV at 1 bolus Per protocol; 1000 mL bolus Route: IV; Rate: 1 bp bolus; Site: right antecubital; 11:46 Drug: vancoMYCIN IVPB 1.5 grams IVPB at calculated rate once Route: IVPB; Rate: bp calculated rate; Site: right antecubital; Disposition Summary: 08/12/23 13:16 Hospitalization Ordered Notes: Hospitalization Status: Inpatient Admission snw Provider: Grabiel Paz snw Condition: Stable snw Problem: new snw Symptoms: are unchanged snw Bed/Room Type: Standard snw Location: Telemetry/MedSurg (Inpatient)(08/12/23 14:07) eb Room Assignment: [facility](08/12/23 14:07) eb Diagnosis - Severe sepsis without septic shock snw - TANGELA snw - Dizziness and giddiness snw - Diabetes mellitus due to underlying condition with hyperglycemia snw Forms: - Medication Reconciliation Form snw - SBAR form snw - Leadership Thank You Letter snw Critical care time excluding procedures: 13:16 Critical care time: Bedside Care: 10 minutes, Consultation: 10 minutes, Family snw Intervention: 10 minutes. Total time: 30 minutes Signatures: Dispatcher [employer] EDKhushi Flores FNP-C LEGAL EXAMINER-Csnw Ashley Schroeder, RN RN ss Cordell Vsáquez, RN RN bp Germania Henao Corrections: (The following items were deleted from the chart) 13:25 13:16 Telemetry/MedSurg (Inpatient) snw eb 13:25 13:16 snw eb 13:25 13:25 eb eb 14:07 13:25 [facility] ER HOLD eb eb 14:07 13:25 ERHOLD- eb eb
[2023-08-12 14:14] LABS: Thyroid Stimulating Hormone 1.42 uIU/mL (0.358-3.740)
--- NOTE | 2023-08-12 14:43 | P.HP ---
Certification for Inpatient Patient admitted to: Inpatient With expected LOS: <2 Midnights Patient will require the following post-hospital care: None Practitioner: I am a practitioner with admitting privileges, knowledge of patient current condition, hospital course, and medical plan of care. Services: Services provided to patient in accordance with Admission requirements found in Title 42 Section 412.3 of the Code of Federal Regulations <Daina Clementsleeann - Last Filed: 08/12/23 14:49> Patient History Date of Service: 08/12/23 Reason for admission: Sepsis, left lower extremity cellulitis, TANGELA History of Present Illness: Mr. Grimes, 73-year-old male patient with a history of type 2 diabetes NIDDM, hyperlipidemia, hypertension, atrial fibrillation presents to ER via ambulatory with complaints of A-fib. Patient reports that his symptoms started acutely, associated symptoms include dizziness, weakness, palpitations. Spouse said her heart rate up to 120 bpm. Patient also reports that a small wound on the left toe, and left lower extremity redness extending up to left knee, patient's spouse helping with the history at bedside. Patient denies chest pain, shortness of breath, abdominal pain, nausea vomiting, fever or chills. ED course vital signs blood pressure 110/79, pulse 123, respiration 21, temperature 97.9, pulse ox 92% on room air. Laboratory evaluationCBC is unremarkable, metabolic panel renal impairment elevated BUN of 46, creatinine 1.94, low GFR 35, hyperglycemia blood sugar 288. Elevated lactic acid 3.1, elevated BNP 1624. Chest x-ray is unremarkable. Admitting the patient with a diagnosis of severe sepsis, acute kidney injury, dizziness and giddiness, diabetes type 2 with hyperglycemia, cellulitis of left lower extremity. - Past Medical/Surgical History Diabetic: Yes -: A-fib -: Diabetes mellitus type [id number] -: Hypertension -: Hyperlipidemia -: H. Pylori -: TURP -: BLE knee sx -: left shoulder sx Psychosocial/ Personal History: Lives at home with his - Social History Smoking Status: Never smoker Alcohol use: No CD- Drugs: No Caffeine use: Yes Place of Residence: Home <ClementsLola ngo - Last Filed: 08/12/23 14:49> Date of Service: 08/12/23 <Grabiel Paz - Last Filed: 08/12/23 15:11> Allergies codeine [Codeine] Adverse Reaction (Mild, Verified 04/13/12 20:15) Nausea/Vomiting Home Medications: Apixaban [Eliquis] 5 mg PO BID 04/21/23 Atorvastatin Calcium [Lipitor] 20 mg PO BEDTIME 04/21/23 Cholecalciferol (Vitamin D3) [Vitamin D3] 2,000 unit PO DAILY 04/21/23 Cinnamon Bark [Cinnamon] 2,000 mg PO DAILY 04/21/23 Empagliflozin [Jardiance] 0.5 tab PO DAILY 04/21/23 Losartan Potassium [Cozaar] 100 mg PO DAILY 04/21/23 Menthol [Bengay] 1 appl TOP TID PRN 04/21/23 Metformin HCl 500 mg PO BID 04/21/23 Metoprolol Succinate [Toprol Xl*] 50 mg PO BEDTIME 04/21/23 Metoprolol Succinate [Toprol Xl*] 100 mg PO DAILY 04/21/23 Potassium Bicarbonate/Cit AC [Klor-Con-Ef 25 Meq Tab Eff] 1 tab PO DAILY 04/21/23 hydroCHLOROthiazide [Hydrochlorothiazide] 25 mg PO DAILY 04/21/23 Amox/Clavulanate [Augmentin 875-125 Tab*] 875 mg PO BID #14 tab 04/24/23 Review of Systems 10-point ROS is otherwise unremarkable <Lola Clements - Last Filed: 08/12/23 14:49> Physical Examination - Physical Exam General: Alert, Oriented x3, Cooperative HEENT: Atraumatic, Normocephalic Neck: Supple, 2+ carotid pulse no bruit, JVD not distended Respiratory: Clear to auscultation bilaterally, Normal air movement Cardiovascular: No edema, Irregular heart rate/rhythm Capillary refill: <2 Seconds Gastrointestinal: Normal bowel sounds, Soft and benign Musculoskeletal: No clubbing, No swelling, Other (Left second toe wound, redness of left lower extremity) Integumentary: Skin lesion, Tenderness/swelling (Left second toe), Other (Left second toe wound, redness of left lower extremity) Neurological: Normal speech, Normal tone, Normal affect - Studies Laboratory Data (last 24 hrs) 08/12/23 08/12/23 08/12/23 10:30 10:30 10:30 WBC 6.50 Hgb 15.1 Hct 44.9 Plt Count 240 PT 15.1 H INR 1.39 Sodium 135 L Potassium 4.0 BUN 46 H Creatinine 1.94 H Glucose 288 H Magnesium 1.8 Total Bilirubin 1.0 AST 25 ALT 29 Alkaline Phosphatase 64 <Lola Clements - Last Filed: 08/12/23 14:49> - Studies Laboratory Data (last 24 hrs) 08/12/23 08/12/23 08/12/23 10:30 10:30 10:30 WBC 6.50 Hgb 15.1 Hct 44.9 Plt Count 240 PT 15.1 H INR 1.39 Sodium 135 L Potassium 4.0 BUN 46 H Creatinine 1.94 H Glucose 288 H Magnesium 1.8 Total Bilirubin 1.0 AST 25 ALT 29 Alkaline Phosphatase 64 <Grabiel Paz - Last Filed: 08/12/23 15:11> Assessment and Plan - Problems (Diagnosis) (1) Sepsis Current Visit: Yes Status: Acute Qualifiers: Sepsis type: sepsis due to unspecified organism Sepsis acute organ dysfunction status: with acute organ dysfunction Severe sepsis acute organ dysfunction type: acute renal failure Severe sepsis shock status: without septic shock (2) Cellulitis of left lower extremity Current Visit: Yes Status: Acute (3) A-fib Current Visit: Yes Status: Chronic Qualifiers: Atrial fibrillation type: unspecified Qualified Code(s): I48.91 - Unspecified atrial fibrillation (4) Hypertension Current Visit: Yes Status: Acute Qualifiers: Hypertension type: renovascular hypertension Qualified Code(s): I15.0 - Renovascular hypertension (5) Type 2 diabetes mellitus with hyperglycemia Current Visit: Yes Status: Acute Qualifiers: Diabetes mellitus buttermaker helper insulin use: without buttermaker helper use Qualified Code(s): E11.65 - Type 2 diabetes mellitus with hyperglycemia (6) Hyperlipidemia Current Visit: Yes Status: Chronic Qualifiers: Hyperlipidemia type: unspecified Qualified Code(s): E78.5 - Hyperlipidemia, unspecified (7) TANGELA (acute kidney injury) Current Visit: Yes Status: Acute - Plan Severe sepsis without shock Cellulitis left lower extremity Wound on the left second toe Sepsis is suspected due to initial lactate 3.1, heart rate 121, low oxygen saturation levels, with identified source of infection wound and cellulitis of left lower extremity -vital signs blood pressure 110/79, pulse 123, respiration 21, temperature 97.9, pulse ox 92% on room air. - Sepsis order set was initiated - Initial Lactate was 0.1 trend - Blood cultures drawn before antibiotics were given - Broad spectrum antibiotics started: Vancomycin and Zosyn -Normal saline 1 L bolus IV was given in the ED- In regards to fluids -30 mL/kg of IV fluids was not administered given SBP > 90, MAP > 65, lactic acid < 4 Type 2 diabetes NIDDM with hyperglycemia: -Chronic on oral on oral hypoglycemic agents -initial blood sugar level of 288, start sliding scale insulin with ACHS blood sugar check, hypoglycemic precautions, ADA diet A-fib Dizziness and giddiness -Chronic A-fib, uncontrolled on admission heart rate fluctuating on 120s does come down to 96 -Patient denies chest pain or palpitation at this time, will continue to monitor -Monitor electrolytes and replete Hypertension -Chronic, controlled, will reconciliate home medication and resume as appropriate Hyperlipidemia -Chronic controlled on statin continue the current medicine -Low fat low-cholesterol diet TANGELA metabolic panel renal impairment elevated BUN of 46, creatinine 1.94, low GFR 35 IV hydration started, renal dose medication, avoid nephrotoxins and NSAIDs Will continue to monitor the renal function CODE STATUSfull code DVT prophylaxisheparin Diet diabetic low-fat low cholesterol diet Discharge Plan: Home Plan to discharge in: 48 Hours - Advance Directives Does patient have a Living Will: No Does patient have a Durable POA for Healthcare: No - Code Status/Comfort Care Code Status Assessed: Yes (full code) Code Status: Full Code Physician Review: Patient Assessed, Agree with Above Assessment and Plan Critical Care: No Time Spent Managing Pts Care (In Minutes): 55 (minutes) <Lola Clements - Last Filed: 08/12/23 14:49> - Plan Pt seen and examined. I agree with the note by the COUNT TEAM MEMBER. Pt is a 73 yo male with past medical history of A. fib, htn, HLD and DM II who presents with weakness, dizziness and palpitation. The symptoms progressively worsened and pt came to the ER for evaluation. On admission, lab studies show wbc 6.5, Hgb 15.1, K 4, Cr 1.95, lactate 3.1, BNP 1624 and troponin 7.7. CXR and CT head are unremarkable. X-ray of foot is negative for osteomyelitis or fracture but it shows large plantar calcaneal spur. At bedside, pt is in NAD. A/P: Sepsis 2/2 left 2nd toe infection: Will continue renally dosed iv vanc and zosyn and f/u blood cx and wound cx. X-ray of the left foot is negative for osteomyelitis. It shows large plantar calcaneal spur. TANGELA: Cr is 1.98. Will continue IVF, avoid nephrotoxins and monitor renal function. Lactic acidosis: Lactate is 3.1. Will continue IVF and trend lactate. A.Fib: Will continue telemetry, metoprolol and Eliquis. DM II: continue accuchek, SSI, lantus, and ADA diet Htn: Continue home med HLD: statin DVT ppx: SCD Code: full <Grabiel Paz - Last Filed: 08/12/23 15:11>
[2023-08-12] MEDS: VANCOMYCIN 750 MG in NA CHLORIDE 0.9% 150 ML IVPB ONE (16:00)
[2023-08-12] MEDS: INSULIN REGULAR (HUMAN) 100 UNIT/ML SQ SCH (16:30)
[2023-08-12] MEDS ORDERED: HEPARIN 5000 UNIT/ML 1 ML VIAL SQ SCH (17:00)
[2023-08-12] MEDS: PIPER TAZO 3.375 GM in NA CHLORIDE 0.9% 100 ML IV SCH ×2 (17:00→18:03)
[2023-08-12] MEDS ORDERED: VANCOMYCIN 1 GM in NA CHLORIDE 0.9% 250 ML IVPB SCH (18:00)
[2023-08-12] MEDS: NA CHLORIDE 0.9% 1,000 ML IV SCH (18:02)
[2023-08-12] MEDS: INSULIN GLARGINE 100 UNIT/ML SQ SCH (20:50)
[2023-08-12] MEDS ORDERED: ATORVASTATIN 20 MG TAB PO SCH (21:00)
[2023-08-12] MEDS ORDERED: METOPROLOL XL 50 MG TAB PO SCH (21:00)
[2023-08-12] MEDS ORDERED: APIXABAN 5 MG TABLET PO SCH (21:00)
[2023-08-12] MEDS: METOPROLOL XL 50 MG TAB PO SCH (22:45)
[2023-08-12] MEDS: APIXABAN 5 MG TABLET PO SCH (22:46)
[2023-08-13 05:54] LABS: Absolute Lymphocytes (CBC) 1.1 K/uL (0.7-4.9); Hematocrit 38.7 % (39.6-49.0); Lymphocytes % 20.3 % (15.3-44.8); MPV 8.4 fL (7.6-11.3); Platelets 189 thou/uL (152-406); RBC Red Blood Cell Count 4.72 M/uL (4.33-5.43)
[2023-08-13 05:56] LABS: Protime INR 1.37
[2023-08-13 06:11] LABS: Magnesium 1.9 mg/dL (1.6-2.4); Phosphorus 3.6 mg/dL (2.5-4.9); Potassium 3.9 mEq/L (3.5-5.1)
[2023-08-13] MEDS: POTASSIUM CL SA 10 MEQ TAB PO ONE (08:31)
[2023-08-13] MEDS: METOPROLOL XL 100 MG TAB PO SCH (08:31)
[2023-08-13] MEDS ORDERED: VITAMIN D 1000 UNIT TAB PO SCH (09:00)
[2023-08-13] MEDS ORDERED: HOME MED 1 EA UNK (Cholecalciferol (Vitamin D3) [Vitamin D3] 2000 UNIT Capsule) PO SCH (09:00)
[2023-08-13] MEDS: VANCOMYCIN 1.75 GM in NA CHLORIDE 0.9% 500 ML IVPB SCH ×2 (12:00→13:35)
--- NOTE | 2023-08-13 12:57 | P.PN ---
Subjective Date of Service: 08/13/23 Chief Complaint: Sepsis, left lower extremity cellulitis, TANGELA Pt is resting comfortably in bed. he denies any fever, chills, nausea, vomiting or SOB. He is getting iv vanc and zosyn. No other complaints. Review of Systems Unremarkable General: Unremarkable Eyes: Unremarkable ENT: Unremarkable Respiratory: Unremarkable Cardiovascular: Unremarkable Gastrointestinal: Unremarkable Genitourinary: Unremarkable Musculoskeletal: Unremarkable Integumentary: Unremarkable Neurological: Unremarkable Lymphatics: Unremarkable Physical Examination - Vital Signs Temperature: 97.1 F Blood Pressure: 128/86 Pulse: 87 Respirations: 16 Pulse Ox (%): 96 - Physical Exam General: Alert, In no apparent distress, Oriented x3 HEENT: Atraumatic, Normocephalic, PERRLA Neck: Supple, 2+ carotid pulse no bruit Respiratory: Clear to auscultation bilaterally, Normal air movement Cardiovascular: No edema, Normal pulses, Regular rate/rhythm, Normal S1 S2 Capillary refill: <2 Seconds Gastrointestinal: Normal bowel sounds, Soft and benign, Non-distended Musculoskeletal: No clubbing, No swelling Integumentary: No rashes, No breakdown Neurological: Normal speech, Normal strength at 5/5 x4 extr, Normal tone, Sensation intact, Cranial nerves 3-12 intact Lymphatics: No axilla or inguinal lymphadenopathy Assessment And Plan - Plan Sepsis 2/2 left 2nd toe infection: Will continue renally dosed iv vanc and zosyn and f/u blood cx and wound cx. X-ray of the left foot is negative for osteomyelitis. It shows large plantar calcaneal spur. TANGELA: Cr is 1.53 <- 1.98. Will continue IVF, avoid nephrotoxins and monitor renal function. Lactic acidosis: Lactate is 1.7 <- 3.1. Will continue IVF and trend lactate. A.Fib: Will continue telemetry, metoprolol and Eliquis. DM II: continue accuchek, SSI, lantus, and ADA diet Htn: Continue home med HLD: statin DVT ppx: SCD Code: full Dispo: pending hospital course. Physician Review: Patient Assessed, Agree with Above Assessment and Plan
[2023-08-13 14:18] VITALS: BMI 25.4
--- NOTE | 2023-08-13 15:00 | EKG ---
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
--- NOTE | 2023-08-13 16:01 | P.CNS ---
Date of Consult: 08/13/23 Reason for Consult: left foot cellulitis Chief Complaint: Sepsis, left lower extremity cellulitis, TANGELA History of Present Illness: Patient is a 73 yo male with a medical history of diabetes mellitus type II, atrial fibrillation on eliquis, hypertension and hyperlipidemia who presented to the ED with complaints of palpitations, dizziness and weakness. Lactic acid 3.1 on admission. No leukocytosis. BUN 46, cr 1.94. ProBNP 1624. Patient was admitted for severe sepsis, acute kidney injury and cellulitis of left lower extremity. Infectious disease was consulted. Allergies codeine [Codeine] Adverse Reaction (Mild, Verified 04/13/12 20:15) Nausea/Vomiting Home medications list reviewed: Yes Home Medications: Apixaban [Eliquis] 5 mg PO BID 04/21/23 Atorvastatin Calcium [Lipitor] 20 mg PO BEDTIME 04/21/23 Cholecalciferol (Vitamin D3) [Vitamin D3] 2,000 unit PO DAILY 04/21/23 Cinnamon Bark [Cinnamon] 2,000 mg PO DAILY 04/21/23 Empagliflozin [Jardiance] 0.5 tab PO DAILY 04/21/23 Losartan Potassium [Cozaar] 100 mg PO DAILY 04/21/23 Metformin HCl 500 mg PO BID 04/21/23 Metoprolol Succinate [Toprol Xl*] 50 mg PO BEDTIME 04/21/23 Metoprolol Succinate [Toprol Xl*] 100 mg PO DAILY 04/21/23 Potassium Bicarbonate/Cit AC [Klor-Con-Ef 25 Meq Tab Eff] 1 tab PO DAILY 04/21/23 hydroCHLOROthiazide [Hydrochlorothiazide] 25 mg PO DAILY 04/21/23 - Past Medical/Surgical History Diabetic: Yes -: A-fib -: Diabetes mellitus type [id number] -: Hypertension -: Hyperlipidemia -: H. Pylori -: TURP -: BLE knee sx -: left shoulder sx Psychosocial/ Personal History: Lives at home with his - Social History Alcohol use: No CD- Drugs: No Caffeine use: Yes Place of Residence: Home Review of Systems 10-point ROS is otherwise unremarkable Integumentary: Other (left 2nd toe pressure injury ) Physical Examination Temp Pulse Resp BP Pulse Ox 97.1 F 87 16 128/86 96 08/13/23 13:01 08/13/23 13:01 08/13/23 13:01 08/13/23 13:01 08/13/23 13:01 General: Alert, In no apparent distress, Oriented x3 HEENT: Atraumatic, Normocephalic Neck: Supple Respiratory: Clear to auscultation bilaterally, Normal air movement, Other (ublabored respirations on room air) Cardiovascular: No edema, Normal pulses Gastrointestinal: Normal bowel sounds, Soft and benign, Non-distended Musculoskeletal: No clubbing, No swelling Integumentary: Diabetic ulcer (left 2nd toe. No surrounding erythema or edema. ), Other (stasis dermatitis BLE) Neurological: Normal speech, Normal tone, Normal affect Laboratory Data - Reviewed Microbiology Data - Reviewed Imagings Data: - Reviewed Conclusions/Impression: Problem List Sepsis secondary to left second toe cellulitis Acute Kidney Injury Atrial Fibrillation Diabetes Mellitus type II Hypertension Hyperlipidemia Sepsis secondary to left lower extremity cellulitis - XR left foot 08/12: "Hallux valgus deformity. Mild lateral subluxation of the first proximal phalanx. Narrowing of the second MTP joint with osteophytes. Periosteal deposition base of the second proximal phalanx could be secondary to inflammation or prior trauma. Large plantar calcaneal spur" - Erythema of LLE improving. Noted small wound dorsal aspect of left 2nd toe. patient reports it was a callus that he had been picking. - No leukocytosis. Afebrile. - Currently on Zosyn and Vancomycin Recommendations - LLE cellulitis: erythema improving. No leukocytosis, afebrile. Continue antibiotic therapy for a total of 10 days. --> consider switch to Augmentin PO upon discharge to complete remainder of antibiotic course. - Discontinue Vancomycin. - Apply silvadene topical to left 2nd toe and cover with foam dressing - Monitor LLE for worsening signs/symptoms of infection such as erythema, pain/tenderness. - Strict blood glucose control - Continue supportive care Case discussed with Wesly Whiting
[2023-08-13] MEDS: SILVER SULFADIAZINE 1% 50 GM TOP SCH (21:53)
[2023-08-14 05:05] LABS: Absolute Lymphocytes (CBC) 1.1 K/uL (0.7-4.9); Hematocrit 36.3 % (39.6-49.0); Lymphocytes % 23.8 % (15.3-44.8); MCV 81.6 fL (80-100); MPV 8.1 fL (7.6-11.3); Platelets 187 thou/uL (152-406); RBC Red Blood Cell Count 4.45 M/uL (4.33-5.43)
[2023-08-14 05:16] LABS: Magnesium 1.9 mg/dL (1.6-2.4); Phosphorus 2.8 mg/dL (2.5-4.9); Potassium 3.6 mEq/L (3.5-5.1)
--- NOTE | 2023-08-14 09:22 | P.PN ---
Date of Service: 08/14/23 Chief Complaint: Sepsis, left lower extremity cellulitis, TANGELA Subjective: Improving. In no apparent distress. Denies any new or worsening complaints at this time. Physical Examination Temp Pulse Resp BP Pulse Ox 97.3 F 79 14 152/97 H 98 08/14/23 08:00 08/14/23 08:00 08/14/23 08:00 08/14/23 08:00 08/14/23 08:00 General: Alert, In no apparent distress, Oriented x3 HEENT: Atraumatic, Normocephalic Respiratory: Clear to auscultation bilaterally, Normal air movement. Unlabored respirations on room air. Cardiovascular: No edema, Normal pulses Gastrointestinal: Normal bowel sounds, Soft and benign, Non-distended Musculoskeletal: No clubbing, No swelling Integumentary: Left 2nd toe ~1 cm wound, no surrounding erythema or edema. Stasis dermatitis BLE R>L. Neurological: Normal speech, Normal tone, Normal affect Laboratory Data - Reviewed Microbiology Data - Reviewed Imagings Data: - Reviewed Medications List: reviewed Assessment and Plan Problem List Sepsis secondary to left second toe cellulitis Acute Kidney Injury Atrial Fibrillation Diabetes Mellitus type II Hypertension Hyperlipidemia Sepsis secondary to left lower extremity cellulitis - XR left foot 08/12: "Hallux valgus deformity. Mild lateral subluxation of the first proximal phalanx. Narrowing of the second MTP joint with osteophytes. Periosteal deposition base of the second proximal phalanx could be secondary to inflammation or prior trauma. Large plantar calcaneal spur" - Erythema of LLE improving. Noted small wound dorsal aspect of left 2nd toe. patient reports it was a callus that he had been picking. - No leukocytosis. Afebrile. - Currently on Zosyn. Vancomycin discontinued 08/13. Recommendations - LLE cellulitis continues to improve. No leukocytosis, afebrile. Continue antibiotic therapy for a total of 10 days. --> Switch to Augmentin PO upon discharge to complete remainder of antibiotic course. - Apply silvadene topical to left 2nd toe and cover with foam dressing - Monitor LLE for worsening signs/symptoms of infection such as erythema, pain/tenderness. - Strict blood glucose control - Continue supportive care - follow up with PCP in 1-2 weeks. Case discussed with Wesly Whiting
[2023-08-14] MEDS: POTASSIUM CL SA 10 MEQ TAB PO ONE (09:56)
[2023-08-14 10:31] VITALS: O2SAT 98
[2023-08-14 17:55] VITALS: BP 152/97; TEMP 97.3
[2023-08-14] MEDS ORDERED: AMOX/K CLAV 875 MG TAB PO SCH (21:00)
== END 2023-08-14 19:09 | disposition home or self-care (01) | DRG 872 ==
LOC: ER 10:04 → ERHOLD 13:22 → 2ND 14:18
PROVIDERS: ADMIT Hospitalist; ATTEND Hospitalist
DX: A41.9 Sepsis, unspecified organism (principal); N17.9 Acute kidney failure, unspecified; L03.116 Cellulitis of left lower limb; I48.20 Chronic atrial fibrillation, unspecified; E87.20 Acidosis, unspecified; I10 Essential (primary) hypertension; I87.2 Venous insufficiency (chronic) (peripheral); I15.0 Renovascular hypertension; E78.5 Hyperlipidemia, unspecified; E11.65 Type 2 diabetes mellitus with hyperglycemia; E11.621 Type 2 diabetes mellitus with foot ulcer; L97.529 Non-pressure chronic ulcer of other part of left foot with unspecified severity; R65.20 Severe sepsis without septic shock; Z88.5 Allergy status to narcotic agent; Z79.01 Long term (current) use of anticoagulants; Z79.84 Long term (current) use of oral hypoglycemic drugs; Z79.899 Other long term (current) drug therapy
CPT/HCPCS: 36415; 70450; 71045; 80048; 80061; 80076; 80202; 81001; 82565; 82947; 83605; 83735; 83880; 84100; 84439; 84443; 84484; 85025; 85610; 87040; 93005; 94640; J1815; J2543; J7030; J7040; J7644

== ENCOUNTER 2023-11-15 10:11 | Emergency (ER) | payer OTHER ==
[2023-11-15 10:55] LABS: Absolute Basophils 0.1 K/uL (0-0.5); Absolute Eosinophils 0.2 K/uL (0-0.5); Absolute Lymphocytes (CBC) 0.6 K/uL (0.7-4.9); Absolute Monocytes 0.6 K/uL (0.1-1.3); Absolute Neutrophil 3.9 K/uL (1.8-8.0); Basophils % 1.4 % (0-1.3); Eosinophils % 4.2 % (0-4.4); Hematocrit 41.1 % (39.6-49.0); Hemoglobin 13.2 g/dL (13.6-17.9); Lymphocytes % 11.4 % (15.3-44.8); MCH 26.3 pg (27.0-35.0); MCHC 32.1 g/dL (32.0-36.0); MPV 8.3 fL (7.6-11.3); Monocytes % 10.8 % (3.3-12.3); Neutrophils % 72.2 % (41.7-73.7); Platelets 256 thou/uL (152-406); RBC Red Blood Cell Count 5.02 M/uL (4.33-5.43)
[2023-11-15 11:14] LABS: Albumin 3.5 g/dL (3.4-5.0); Albumin/Globulin Ratio 1.1 (1.1-1.8); Anion Gap 8.1 mEq/L (5.0-15.0); Bilirubin Direct 0.3 mg/dL (0-0.2); Bilirubin Indirect, Calculated 0.5 mg/dL (0.2-0.8); Bilirubin Total 0.8 mg/dL (0.2-1.0); Globulin 3.2 g/dL (2.3-3.5); Potassium 4.1 mEq/L (3.5-5.1); Protein, Total 6.7 g/dL (6.4-8.2); Troponin High Sensitivity 5.6 pg/mL (<58.9)
--- NOTE | 2023-11-15 11:18 | RAD REPORT ---
EXAM DESCRIPTION: Jeannie Single View11/15/2023 10:56 am CLINICAL HISTORY: Diaphoretic COMPARISON: none FINDINGS: The lungs appear clear of acute infiltrate. The heart is mildly enlarged IMPRESSION: No acute abnormalities displayed
--- NOTE | 2023-11-15 13:56 | RAD REPORT ---
EXAM DESCRIPTION: CT - Head Brain Wo Cont - 11/15/2023 1:01 pm CLINICAL HISTORY: fall COMPARISON: Head Brain Wo Cont dated 08/12/2023; Head Brain Wo Cont dated 07/03/2019 TECHNIQUE: Noncontrast head CT images were obtained without IV contrast. Multiplanar reformats were generated and reviewed. All CT scans are performed using dose optimization technique as appropriate and may include automated exposure control or mA/KV adjustment according to patient size. FINDINGS: No intracranial hemorrhage, mass, or edema. Midline structures are unremarkable. Mild diffuse parenchymal volume loss. Stable ventricular caliber. Stable pattern of confluent periven tricular and deep white matter hypodensities, nonspecific, most suggestive of chronic small vessel is chemic changes. Minaya-white matter differentiation is preserved, without evidence of acute infarct. No abnormal extra- axial fluid collections. Mastoid air cells and visualized portions of the paranasal sinuses are clear. No acute bony findings. IMPRESSION: No evidence of an acute intracranial process. Chronic findings as above.
--- NOTE | 2023-11-15 14:14 | EDPHYS ---
Physician Documentation [facility] Name: Luca Grimse Age: 73 yrs Sex: Male : 1950 Arrival Date: 11/15/2023 Time: 10:11 Bed 2 Private MD: ED Physician Piotr Richardson HPI: 11/14 12:43 This 73 yrs old Male presents to ER via EMS with complaints of Weakness. ms3 12:43 73-year-old male with past medical history of atrial fibrillation, diabetes, ms3 hyperlipidemia, hypertension presents to the emergency department via [facility] for weakness and being slow to respond. EMS notes patient's family was unable to obtain patient's glucose level and gave the patient orange juice with improvement of his mental status. EMS notes patient's blood glucose level was 1 10-1 [address]. EKG showed right bundle branch block. Patient states he took his insulin last night he did not eat breakfast this morning.. Historical: - Allergies: 10:17 Codeine; mb9 10:17 Metoprolol Tartrate; mb9 - Home Meds: 10:17 Amiodarone Oral [Active]; atorvastatin oral [Active]; losartan oral [Active]; metformin mb9 500 mg Oral Tablet, ER Gastric Retention 24 hr [Active]; - PMHx: 10:17 Atrial fibrillation; Diabetes - NIDDM; High Cholesterol; Hypertension; mb9 - Immunization history:: Adult Immunizations up to date. - Infectious Disease History:: Denies. - Social history:: Smoking status: Patient denies any tobacco usage or history of. ROS: 12:43 Constitutional: Negative for fever, and chills. Neck: Negative for injury, pain, and ms3 swelling, Cardiovascular: Negative for chest pain, and palpitations. Respiratory: Negative for shortness of breath, cough, wheezing, and pleuritic chest pain, Abdomen/GI: Negative for abdominal pain, nausea, vomiting, diarrhea, and constipation, Skin: Negative for injury, rash, and discoloration, 12:43 Endocrine: Positive for Possible hypoglycemia, Exam: 11:18 ECG was reviewed by the Attending Physician. ms3 12:43 Constitutional: This is a well developed, well nourished patient who is awake, alert, ms3 and in no acute distress. Head/Face: Normocephalic, atraumatic. Chest/axilla: Normal chest wall appearance and motion. Nontender with no deformity. Cardiovascular: Regular rate and rhythm with a normal S1 and S2. No gallops, murmurs, or rubs. Normal PMI, no JVD. No pulse deficits. Respiratory: Lungs have equal breath sounds bilaterally, clear to auscultation and percussion. No rales, rhonchi or wheezes noted. No increased work of breathing, no retractions or nasal flaring. Abdomen/GI: Soft, non-tender, with normal bowel sounds. No distension or tympany. No guarding or rebound. No evidence of tenderness throughout. Skin: Warm, dry with normal turgor. Normal color with no rashes, no lesions, and no evidence of cellulitis. MS/ Extremity: Pulses equal, no cyanosis. Neurovascular intact. Full, normal range of motion. Neuro: Awake and alert, GCS 15, oriented to person, place, time, and situation. Cranial nerves II-XII grossly intact. Motor strength 5/5 in all extremities. Sensory grossly intact. Cerebellar exam normal. Normal gait. Vital Signs: 10:19 BP 102 / 79; Pulse 108; Resp 20; Temp 98.5; Pulse Ox 97% on R/A; Weight 83.91 kg; mb9 Height 6 ft. 0 in. ; 10:55 BP 117 / 89; Pulse 81; Resp 18; Pulse Ox 100% on R/A; mb9 13:38 BP 114 / 85; Pulse 79; Resp 18; Pulse Ox 97% on R/A; mb9 14:11 BP 133 / 85; Pulse 95; Resp 18; Pulse Ox 99% on R/A; mb9 10:19 Body Mass Index 25.09 (83.91 kg, 182.88 cm) mb9 MDM: 10:59 Patient medically screened. ms3 12:41 ED course: Patient's states patient fell off their deck on Sunday and is on ms3 Eliquis. Will obtain CT Head without contrast. 14:14 Data reviewed: vital signs, nurses notes, lab test result(s), radiologic studies, CT ms3 scan, plain films, and as a result, I will discharge patient. Counseling: I had a detailed discussion with the patient and/or guardian regarding the historical points, exam findings, and any diagnostic results supporting the discharge/admit diagnosis, lab results, radiology results, the need for outpatient follow up, to return to the emergency department if symptoms worsen or persist or if there are any questions or concerns that arise at home. Response to treatment: the patient's symptoms have markedly improved after treatment, and as a result, I will discharge patient. Special discussion: I discussed with the patient/guardian in detail that at this point there is no indication for admission to the hospital. It is understood, however, that if the symptoms persist or worsen the patient needs to return immediately for re-evaluation. ED course: Patient remains alert and oriented x 4, no apparent distress, nontoxic-appearing. [facility]. All questions were answered. Return precautions discussed include worsening symptoms, or any other concerns.. 11/14 10:37 Order name: Basic Metabolic Panel; Complete Time: 11:17 ms3 11/14 10:37 Order name: CBC with Diff; Complete Time: 11:17 ms3 11/14 10:37 Order name: LFT's; Complete Time: 11:17 ms3 11/14 10:37 Order name: Magnesium; Complete Time: 11:17 ms3 11/14 10:37 Order name: Troponin HS; Complete Time: 11:17 ms3 11/14 10:37 Order name: XRAY Chest (1 view); Complete Time: 11:30 ms3 11/14 12:42 Order name: CT Head Brain wo Cont; Complete Time: 14:04 ms3 11/14 10:37 Order name: Cardiac monitoring; Complete Time: 10:50 ms3 11/14 10:37 Order name: EKG - Nurse/Tech; Complete Time: 10:50 ms3 11/14 10:37 Order name: IV Saline Lock; Complete Time: 10:50 ms3 11/14 10:37 Order name: Labs collected and sent; Complete Time: 10:50 ms3 11/14 10:37 Order name: O2 Per Protocol; Complete Time: 10:50 ms3 11/14 10:37 Order name: O2 Sat Monitoring; Complete Time: 10:50 ms3 EC:18 Rate is 87 beats/min. Rhythm is irregularly irregular. QRS interval is prolonged. ms3 Clinical impression: Atrial Fibrillation and with right bundle branch block. Interpreted by me. Reviewed by me. Administered Medications: No medications were administered Disposition Summary: 11/15/23 14:13 Discharge Ordered Notes: Location: Home ms3 Condition: Stable ms3 Diagnosis - Hypoglycemia, unspecified ms3 - Other specified diabetes mellitus with foot ulcer ms3 Followup: ms3 - With: Private Physician - When: 2 - 3 days - Reason: Recheck today's complaints Discharge Instructions: - Discharge Summary Sheet ms3 - Diabetes Mellitus and Foot Care ms3 - Hypoglycemia ms3 Forms: - Medication Reconciliation Form ms3 - Antibiotic Education ms3 - Prescription Opioid Use ms3 - Patient Portal Instructions ms3 - Leadership Thank You Letter ms3 Signatures: Dispatcher [employer] EDMS Piotr Richardson DO DO ms3 Helen Bravo RN RN mb9 Corrections: (The following items were deleted from the chart) 10:38 10:37 BASIC METABOLIC PANEL+C.LAB.BRZ ordered. EDMS EDMS 10:38 10:37 CBC+H.LAB.BRZ ordered. EDMS EDMS 10:38 10:37 HEPATIC FUNCTION+C.LAB.BRZ ordered. EDMS EDMS 10:38 10:37 MAGNESIUM+C.LAB.BRZ ordered. EDMS EDMS 10:38 10:37 Troponin High Sensitivity+C.LAB.BRZ ordered. EDMS EDMS 10:38 10:38 Chest Single View+RAD.RAD.BRZ ordered. EDMS EDMS
--- NOTE | 2023-11-15 14:14 | ER ---
Nurse's Notes [facility] Name: Luca Grimes Age: 73 yrs Sex: Male : 1950 Arrival Date: 11/15/2023 Time: 10:11 Bed 2 Private MD: Diagnosis: Hypoglycemia, unspecified;Other specified diabetes mellitus with foot ulcer Presentation: 11/14 10:16 Chief complaint: EMS states: "toned out for weakness and AMS at home. He was slow to mb9 respond and diaphoretic, On arrival, pt AAOx4, BGL 198, and denies symptoms.". Coronavirus screen: Vaccine status: Patient reports receiving the 2nd dose of the covid vaccine. Ebola Screen: No symptoms or risks identified at this time. Initial Sepsis Screen: Does the patient meet any 2 criteria? No. Patient's initial sepsis screen is negative. Does the patient have a suspected source of infection? No. Patient's initial sepsis screen is negative. Risk Assessment: Do you want to hurt yourself or someone else? Patient reports no desire to harm self or others. Onset of symptoms was November 15, 2023. 10:16 Method Of Arrival: EMS: [facility] mb9 10:16 Acuity: MARY 2 mb9 Triage Assessment: 10:22 General: Appears in no apparent distress. Behavior is calm, cooperative, appropriate mb9 for age. Pain: Denies pain. EENT: No signs and/or symptoms were reported regarding the EENT system. Neuro: Linda Agitation-Sedation Scale (RASS): 0 - Alert and Calm Level of Consciousness is awake, alert, obeys commands, Oriented to person, place, time, situation, Appropriate for age. Cardiovascular: Heart tones S1 S2 present Patient's skin is warm and dry. Respiratory: Airway is patent Respiratory effort is even, unlabored, Respiratory pattern is regular, symmetrical, Breath sounds are clear bilaterally. GI: Abdomen is round non-distended, Bowel sounds present X 4 quads. Abd is soft and non tender X 4 quads. : No signs and/or symptoms were reported regarding the genitourinary system. Derm: Skin is pink, warm \\T\\ dry. Musculoskeletal: Range of motion: intact in all extremities. Historical: - Allergies: 10:17 Codeine; mb9 10:17 Metoprolol Tartrate; mb9 - Home Meds: 10:17 Amiodarone Oral [Active]; atorvastatin oral [Active]; losartan oral [Active]; metformin mb9 500 mg Oral Tablet, ER Gastric Retention 24 hr [Active]; - PMHx: 10:17 Atrial fibrillation; Diabetes - NIDDM; High Cholesterol; Hypertension; mb9 - Immunization history:: Adult Immunizations up to date. - Infectious Disease History:: Denies. - Social history:: Smoking status: Patient denies any tobacco usage or history of. Screenin:[address] [facility] ED Fall Risk Assessment (Adult) History of falling in the last 3 months, mb9 including since admission No falls in past 3 months (0 pts) Confusion or Disorientation No (0 pts) Intoxicated or Sedated No (0 pts) Impaired Gait No (0 pts) Mobility Assist Device Used No (0 pt) Altered Elimination No (0 pt) Score/Fall Risk Level 0 - 2 = Low Risk Oriented to surroundings, Maintained a safe environment, Educated pt \\T\\ family on fall prevention, incl call for assistance when getting out of bed. Abuse screen: Denies threats or abuse. Nutritional screening: No deficits noted. Tuberculosis screening: No symptoms or risk factors identified. Assessment: 11:56 Reassessment: No changes from previously documented assessment. Patient and/or family mb9 updated on plan of care and expected duration. Pain level reassessed. Patient is alert, oriented x 3, equal unlabored respirations, skin warm/dry/pink. 13:07 Reassessment: No changes from previously documented assessment. Patient and/or family mb9 updated on plan of care and expected duration. Pain level reassessed. Patient is alert, oriented x 3, equal unlabored respirations, skin warm/dry/pink. 14:11 Reassessment: No changes from previously documented assessment. Patient and/or family mb9 updated on plan of care and expected duration. Pain level reassessed. Patient is alert, oriented x 3, equal unlabored respirations, skin warm/dry/pink. Vital Signs: 10:19 BP 102 / 79; Pulse 108; Resp 20; Temp 98.5; Pulse Ox 97% on R/A; Weight 83.91 kg; mb9 Height 6 ft. 0 in. ; 10:55 BP 117 / 89; Pulse 81; Resp 18; Pulse Ox 100% on R/A; mb9 13:38 BP 114 / 85; Pulse 79; Resp 18; Pulse Ox 97% on R/A; mb9 14:11 BP 133 / 85; Pulse 95; Resp 18; Pulse Ox 99% on R/A; mb9 10:19 Body Mass Index 25.09 (83.91 kg, 182.88 cm) mb9 ED Course: 10:16 Patient arrived in ED. mb9 10:17 Triage completed. mb9 10:18 Piotr Richardson DO is Attending Physician. ms3 10:19 Arm band placed on. mb9 10:23 Placed in gown. Bed in low position. Call light in reach. Side rails up X 1. Provided mb9 Education on: press call light if needing anything. Client placed on continuous cardiac and pulse oximetry monitoring. NIBP monitoring applied. panel monitor on. Door closed. Noise minimized. Warm blanket given. Pillow given. 10:50 Helen Bravo, RN is Primary Nurse. mb9 10:50 Basic Metabolic Panel Sent. mb9 10:50 CBC with Diff Sent. mb9 10:50 LFT's Sent. mb9 10:50 Magnesium Sent. mb9 10:50 Troponin HS Sent. mb9 10:50 EKG done, by ED staff, reviewed by Piotr Richardson DO. Maintain EMS IV. Dressing intact. mb9 Good blood return noted. Site clean \\T\\ dry. Gauge \\T\\ site: 18g right AC. 10:50 No provider procedures requiring assistance completed. mb9 10:58 XRAY Chest (1 view) In Process Unspecified. EDMS 13:02 CT Head Brain wo Cont In Process Unspecified. EDMS 14:11 IV discontinued, intact, bleeding controlled, No redness/swelling at site. Pressure mb9 dressing applied. Administered Medications: No medications were administered Medication: 10:23 VIS not applicable for this client. mb9 Outcome: 14:13 Discharge ordered by . ms3 14:26 Discharged to home ambulatory, mb9 14:26 Condition: stable 14:26 Discharge instructions given to patient, Instructed on discharge instructions, follow up and referral plans. Demonstrated understanding of instructions, follow-up care, 14:26 Patient left the ED. mb9 Signatures: Dispatcher [employer] EDMS Piotr Richardson DO DO ms3 Helen Bravo, RN RN [email or web address]
[2023-11-15 14:47] VITALS: BP 133/85; TEMP 98.5; O2SAT 99
--- NOTE | 2023-11-19 13:32 | EKG ---
Test Date: 2023-11-15 Test Time: 10:45:53 Blood Bank Custodian: Maico PLATT MEASUREMENT RESULTS: Intervals: Rate: 87 NE: QRSD: 170 QT: 430 QTc: 517 [place]: P: NE: QRS: 255 T: 27 INTERPRETIVE STATEMENTS: Atrial fibrillation Right bundle branch block Abnormal ECG Compared to ECG 08/12/2023 10:18:37 Sinus tachycardia no longer present Myocardial infarct finding no longer present Electronically Signed On 11-19-23 13:20:32 CDT by Terrance Karimi
== END 2023-11-15 14:26 | disposition home or self-care (01) ==
LOC: ER 10:11
DX: E13.649 Other specified diabetes mellitus with hypoglycemia without coma (principal); E13.621 Other specified diabetes mellitus with foot ulcer; I10 Essential (primary) hypertension; Z88.5 Allergy status to narcotic agent; Z88.8 Allergy status to other drugs, medicaments and biological substances
CPT/HCPCS: 36415; 70450; 71045; 80048; 80076; 83735; 84484; 85025; 93005; 99284

== ENCOUNTER 2024-06-04 11:16 | Emergency (ER) | payer OTHER ==
--- NOTE | 2024-06-04 12:44 | RAD REPORT ---
Exam:Humerus Left CLINICAL HISTORY: Left arm pain FINDINGS: No fracture or dislocation seen Osteoporosis
--- NOTE | 2024-06-04 12:45 | RAD REPORT ---
Exam:Forearm Left Clinical history: Left forearm pain Findings: No fracture or dislocation seen.
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
--- NOTE | 2024-06-04 13:42 | RAD REPORT ---
Procedure: Chest Single View HISTORY: Rib pain COMPARISON: November 2023 FINDINGS: The lungs appear clear of acute infiltrate. No significant pleural effusion noted. The heart is mildly enlarged. No gross displaced rib fracture seen. No pneumothorax visualized IMPRESSION: No acute abnormality is displayed.
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
[2024-06-04 16:06] VITALS: BP 157/72; TEMP 98.3; O2SAT 100
== END 2024-06-04 14:08 | disposition home or self-care (01) ==
LOC: ER 11:16
DX: S40.022A Contusion of left upper arm, initial encounter (principal); S50.12XA Contusion of left forearm, initial encounter; V49.49XA Driver injured in collision with other motor vehicles in traffic accident, initial encounter; I10 Essential (primary) hypertension; I48.91 Unspecified atrial fibrillation; E11.9 Type 2 diabetes mellitus without complications
CPT/HCPCS: 70450; 71045; 72125; 99284

== ENCOUNTER 2025-02-21 14:52 | Emergency (ER) | payer OTHER ==
[2025-02-21 16:16] LABS: Absolute Lymphocytes (CBC) 0.9 K/uL (0.7-4.9); Hematocrit 40.3 % (39.6-49.0); Hemoglobin 13.8 g/dL (13.6-17.9); MCH 29.0 pg (27.0-35.0); MCHC 34.3 g/dL (32.0-36.0); MCV 84.7 fL (80-100); MPV 8.5 fL (7.6-11.3); Nucleated RBC Absolute Count 0.0 (0-0); Nucleated Red Blood Cells % 0.1 % (0-0); RBC Red Blood Cell Count 4.75 M/uL (4.33-5.43); White Blood Count 6.40 thou/uL (4.3-10.9)
[2025-02-21 16:30] LABS: PT Prothrombin Time 16.4 SECONDS (10-13.0); PTT, Activated Partial Thromb 30.7 SECONDS (27.2-37.4); Protime INR 1.47
[2025-02-21 16:37] LABS: ALT/SGPT 32.0 U/L (16-61); Albumin 3.3 g/dL (3.4-5.0); Albumin/Globulin Ratio 1.0 (1.1-1.8); Alkaline Phosphatase 67.0 U/L (45-117); Anion Gap 7.6 mEq/L (5.0-15.0); BUN Blood Urea Nitrogen 37.0 mg/dL (7-18); Globulin 3.3 g/dL (2.3-3.5); Glucose Level 154.0 mg/dL (74-106)
[2025-02-21 16:46] LABS: AST/SGOT 40.0 U/L (15-37); Potassium 4.6 mEq/L (3.5-5.1)
--- NOTE | 2025-02-21 17:11 | RAD REPORT ---
EXAM:Extremity Venous Uni Ltd HISTORY: Right leg pain TECHNIQUE: Sonographic evaluation right lower extremity performed.Grayscale, color and spectral jeanne sis performed on all vessels COMPARISON: None. FINDINGS: Right common femoral, superficial femoral, greater saphenous, popliteal and posterior tibial veins ar e compressible and demonstrate augmentation. Doppler demonstrates good flow. 4.6 x 2.3 x 4.2 cm fluid collection right popliteal fossa. Additional 3.1 x 1.3 x 2.4 cm fluid collec tion. Both Curry's cyst. IMPRESSION: No evidence of deep venous thrombosis involving the right lower extremity. 2 Curry's cyst. Largest 4.6 cm
--- NOTE | 2025-02-21 17:16 | RAD REPORT ---
EXAM:Lower Extremity Artery Uni Ltd HISTORY: leg pain and swelling TECHNIQUE: Sonographic evaluation right lower extremity arteries performed.Grayscale, color and spect ral analysis performed on all vessels COMPARISON: None. FINDINGS: Right common femoral arterial waveform triphasic Right superficial femoral arterial waveform triphasic Right popliteal arterial waveform triphasic Right dorsalis pedis and posterior tibial artery monophasic waveforms. Dorsalis pedis arterial wavefo rm diminished in amplitude.. No occlusion IMPRESSION: Mild to moderate distal right lower extremity arterial disease No significant abnormality proximal and mid arteries right lower extremity
--- NOTE | 2025-02-21 17:21 | RAD REPORT ---
Exam:Foot Right 3 View CLINICAL HISTORY: Right foot pain FINDINGS: No fracture or dislocation seen Postsurgical changes first metatarsal. No bony destructive lesion seen Narrowing of the second MTP joint. Mild medial subluxation second proximal phalanx with mild flatteni ng of the second metatarsal head. Pes planus deformity
--- NOTE | 2025-02-21 17:28 | ER ---
Nurse's Notes [facility] Name: Luca Grimes Age: 74 yrs Sex: Male : 1950 Arrival Date: 02/21/2025 Time: 14:52 Bed 19 Private MD: Diagnosis: Cellulitis of right lower limb-and left forearm Presentation: 02/21 15:05 Chief complaint: Patient states: C/O left forearm wounds due to being scratched by a ar8 dog and right big toe wound that was being treated by the defect cutter. Coronavirus screen: At this time, the client does not indicate any symptoms associated with coronavirus-19. Ebola Screen: No symptoms or risks identified at this time. Initial Sepsis Screen: Does the patient meet any 2 criteria? No. Patient's initial sepsis screen is negative. Does the patient have a suspected source of infection? No. Patient's initial sepsis screen is negative. Risk Assessment: Do you want to hurt yourself or someone else? Patient reports no desire to harm self or others. Onset of symptoms was February 18, 2025. 15:05 Method Of Arrival: Ambulatory ar8 15:05 Acuity: MARY 3 ar8 Triage Assessment: 15:09 Bite description: Patient has healing skin tears from a dog scratch. General: Appears ar8 in no apparent distress. Behavior is calm, cooperative. Pain: Complains of pain in dorsal aspect of left forearm. Historical: - Allergies: 15:09 Codeine; ar8 15:09 Metoprolol Tartrate; ar8 - PMHx: 15:09 Atrial fibrillation; Diabetes - NIDDM; High Cholesterol; Hypertension; ar8 - Immunization history:: Adult Immunizations up to date, Last tetanus immunization: unknown. - Infectious Disease History:: Denies. - Social history:: Smoking status: Patient denies any tobacco usage or history of. Screenin:50 [facility] ED Fall Risk Assessment (Adult) History of falling in the last 3 months, jl7 including since admission No falls in past 3 months (0 pts) Confusion or Disorientation No (0 pts) Intoxicated or Sedated No (0 pts) Impaired Gait No (0 pts) Mobility Assist Device Used No (0 pt) Altered Elimination No (0 pt) Score/Fall Risk Level 0 - 2 = Low Risk Oriented to surroundings, Maintained a safe environment. Abuse screen: Denies threats or abuse. Denies injuries from another. Nutritional screening: No deficits noted. Tuberculosis screening: No symptoms or risk factors identified. Assessment: 16:00 General: Appears in no apparent distress. uncomfortable, Behavior is calm, cooperative, jl7 appropriate for age. Pain: Complains of pain in right foot and left arm Pain currently is 8 out of 10 on a pain scale. Neuro: Linda Agitation-Sedation Scale (RASS): 0 - Alert and Calm Level of Consciousness is awake, alert, obeys commands, Oriented to person, place, time, situation. Cardiovascular: Patient's skin is warm and dry. Respiratory: Airway is patent Respiratory effort is even, unlabored, Respiratory pattern is regular, symmetrical. Derm: Skin has skin tears on left forearm Skin is pink, warm \T\ dry. 17:00 Reassessment: Patient appears in no apparent distress at this time. No changes from jl7 previously documented assessment. Patient and/or family updated on plan of care and expected duration. Pain level reassessed. Patient is alert, oriented x 3, equal unlabored respirations, skin warm/dry/pink. Vital Signs: 15:05 BP 147 / 93; Pulse 67; Resp 20; Temp 98.8(O); Pulse Ox 97% ; Weight 99.79 kg; Height 6 ar8 ft. 3 in. ; Pain 8/10; 16:32 BP 164 / 89; Pulse 68; Resp 16; Temp 98.4; Pulse Ox 97% ; ts3 17:50 BP 160 / 85; Pulse 65; Resp 15; Pulse Ox 97% ; jl7 15:05 Body Mass Index 27.50 (99.79 kg, 190.5 cm) ar8 15:05 Pain Scale: Adult ar8 ED Course: 14:56 Patient arrived in ED. ts1 14:[address] PA-C is PHCP. sb4 14:57 Lisa Smith MD is Attending Physician. sb4 15:09 Triage completed. ar8 15:09 Arm band placed on right wrist. ar8 15:31 Kristin Hoover, GIOVANNA is Primary Nurse. jl7 16:28 Inserted saline lock: 18 gauge in right wrist, using aseptic technique. Blood ts3 collected. Flushed with 10 mL NS. 16:28 Initial lab(s) drawn, by culture media laboratory assistant, sent to lab. ts3 16:54 Extremity Venous Uni Ltd US In Process Unspecified. EDMS 16:54 Lower Extremity Artery Uni Ltd US In Process Unspecified. EDMS 17:02 Foot Right 3 View XRAY In Process Unspecified. EDMS 17:50 Patient has correct armband on for positive identification. Provided Education on: jl7 discharge. 18:03 No provider procedures requiring assistance completed. IV discontinued, intact, jl7 bleeding controlled, No redness/swelling at site. Pressure dressing applied. Administered Medications: 17:40 Drug: Rocephin IV 1 grams IV at calculated rate once; Given slow IV push per pharmacy jl7 instructions Route: IV; Rate: calculated rate; Site: right wrist; 17:58 Follow up: Response: No adverse reaction; IV Status: Completed infusion jl7 Medication: 17:50 VIS not applicable for this client. jl7 Outcome: 17:27 Discharge ordered by MD. leona 18:03 Discharged to home ambulatory, jl7 18:03 Condition: stable 18:03 Discharge instructions given to patient, Instructed on discharge instructions, follow up and referral plans. medication usage, Demonstrated understanding of instructions, follow-up care, medications, Prescriptions given X 2, 18:04 Patient left the ED. jl7 Signatures: Dispatcher [employer] Kristin Contreras RN RN jl7 Jacqu[address] PAMarcellaC PAMillicent [id number] Shanti Sanchez PAS PAS ts1 Rosanna Carlin ts3 Tristen Jorge, RN RN ar8
--- NOTE | 2025-02-21 17:28 | EDPHYS ---
Physician Documentation [facility] Name: Luca Grimes Age: 74 yrs Sex: Male : 1950 Arrival Date: 02/21/2025 Time: 14:52 Bed 19 Private MD: ED Physician Lisa Smith HPI: 02/21 15:53 This 74 yrs old Male presents to ER via Ambulatory with complaints of Toe Injury, Dog sb4 Bite. 15:53 Patient states that 3 days ago, his daughter's dog jumped on him and scratched his left sb4 forearm. He states that he has been cleaning it with peroxide and Neosporin but it is red and painful. Additionally, he wants to have his right foot/leg checked. He states he has had a wound on his right great toe for a few months now, has been seeing podiatry and has it debrided every month. However, states that there is redness traveling up his leg. Denies any fever or chills. Historical: - Allergies: 15:09 Codeine; ar8 15:09 Metoprolol Tartrate; ar8 - PMHx: 15:09 Atrial fibrillation; Diabetes - NIDDM; High Cholesterol; Hypertension; ar8 - Immunization history:: Adult Immunizations up to date, Last tetanus immunization: unknown. - Infectious Disease History:: Denies. - Social history:: Smoking status: Patient denies any tobacco usage or history of. ROS: 16:10 Constitutional: Negative for fever, chills, and weight loss, sb4 16:10 Skin: Positive for erythema, of the dorsal aspect of left forearm, skin tears, 16:10 Skin: Positive for cellulitis, erythema, of the medial aspect of right calf and medial sb4 aspect of right foot, 16:10 All other systems are negative, Exam: 16:13 Constitutional: This is a well developed, well nourished patient who is awake, alert, sb4 and in no acute distress. Head/Face: Normocephalic, atraumatic. Eyes: Extra-ocular motions intact. Periorbital areas with no swelling, redness, or edema. ENT: Mucous membranes moist. Cardiovascular: Regular rate and rhythm with a normal S1 and S2. Respiratory: No increased work of breathing, no retractions or nasal flaring. 16:13 MS/ Extremity: Pulses equal, no cyanosis. Neurovascular intact. Full, normal range of motion. 16:13 Skin: injury, Multiple superficial skin tears on dorsal aspect of left forearm with surrounding erythema, Cellulitis of right great toe with streaking up the medial right thigh. Wound noted to distal right great toe with fluctuance. Vital Signs: 15:05 BP 147 / 93; Pulse 67; Resp 20; Temp 98.8(O); Pulse Ox 97% ; Weight 99.79 kg; Height 6 ar8 ft. 3 in. ; Pain 8/10; 16:32 BP 164 / 89; Pulse 68; Resp 16; Temp 98.4; Pulse Ox 97% ; ts3 17:50 BP 160 / 85; Pulse 65; Resp 15; Pulse Ox 97% ; jl7 15:05 Body Mass Index 27.50 (99.79 kg, 190.5 cm) ar8 15:05 Pain Scale: Adult ar8 MDM: 14:59 Medical Screening Exam initiated sb4 16:14 Differential diagnosis: Cellulitis, osteomyelitis, DVT. Care significantly affected by sb4 the following chronic conditions: Diabetes, Hypertension. 17:08 Independent interpretation of the following test(s) in the Emergency Department X-Ray: sb4 My interpretation is My interpretation of the right foot x-ray images is no bone destruction or gas present in the great toe, AKA no signs of osteomyelitis. 17:27 Data reviewed: vital signs, nurses notes, lab test result(s), radiologic studies, I sb4 have discussed the patient's presentation/case with the attending Emergency Department Physician; and as a result, I will discharge patient. Consideration of Admission/Observation Escalation of care including admission/observation considered. Counseling: I had a detailed discussion with the patient and/or guardian regarding the historical points, exam findings, and any diagnostic results supporting the discharge/admit diagnosis, the presence of at least one elevated blood pressure reading (>120/80) during this emergency department visit, lab results, radiology results, the need for outpatient follow up, for definitive care, to return to the emergency department if symptoms worsen or persist or if there are any questions or concerns that arise at home. 02/21 15:38 Order name: Blood Culture Adult (2) sb4 02/21 15:38 Order name: CBC with Diff; Complete Time: 16:18 sb4 02/21 15:38 Order name: CMP; Complete Time: 16:47 sb4 02/21 15:38 Order name: Lactate w/ 2H reflex if indic.; Complete Time: 16:37 sb4 02/21 15:38 Order name: Protime (+inr); Complete Time: 16:31 sb4 02/21 15:38 Order name: Ptt, Activated; Complete Time: 16:31 sb4 02/21 16:43 Order name: Glucose, Ancillary Testing; Complete Time: 16:45 EDMS 02/21 15:38 Order name: Extremity Venous Uni Ltd US; Complete Time: 17:23 sb4 02/21 15:38 Order name: Lower Extremity Artery Uni Ltd US; Complete Time: 17:23 sb4 02/21 15:38 Order name: Foot Right 3 View XRAY; Complete Time: 17:23 sb4 02/21 15:38 Order name: Accucheck; Complete Time: 16:32 sb4 02/21 15:38 Order name: Cardiac monitoring; Complete Time: 16:32 sb4 02/21 15:38 Order name: IV Saline Lock - Large Bore; Complete Time: 16:28 sb4 02/21 15:38 Order name: Labs collected and sent; Complete Time: 16:28 sb4 02/21 15:38 Order name: O2 Per Protocol; Complete Time: 16:32 sb4 02/21 15:38 Order name: O2 Sat Monitoring; Complete Time: 16:32 sb4 02/21 15:38 Order name: Vital Signs; Complete Time: 16:40 sb4 Administered Medications: 17:40 Drug: Rocephin IV 1 grams IV at calculated rate once; Given slow IV push per pharmacy jl7 instructions Route: IV; Rate: calculated rate; Site: right wrist; 17:58 Follow up: Response: No adverse reaction; IV Status: Completed infusion jl7 Disposition Summary: 02/21/25 17:27 Discharge Ordered Notes: Location: Home sb4 Problem: an ongoing problem sb4 Symptoms: are unchanged sb4 Condition: Stable sb4 Diagnosis - Cellulitis of right lower limb - and left forearm sb4 Followup: sb4 - With: Emergency Department - When: As needed - Reason: Fever > 102 F, Worsening of condition Discharge Instructions: - Discharge Summary Sheet sb4 - Cellulitis, Adult sb4 - Skin Tear, [id number] sb4 - Wound Care, Adult sb4 Forms: - Antibiotic Education sb4 - Patient Portal Instructions sb4 - Leadership Thank You Letter sb4 Prescriptions: - Cephalexin 500 mg Oral Capsule - take 1 capsule ORAL route every 12 hours for 10 days; 20 capsule; Refills: 0, sb4 Product Selection Permitted - Bactrim DS 800-160 mg Oral Tablet - take 1 tablet ORAL route every 12 hours for 10 days; 20 tablet; Refills: 0, sb4 Product Selection Permitted Signatures: Dispatcher [employer] EDMS Kristin Hoover, RN RN jl7 Jacquelyn Lane PA-C PA-C sb4 Tristen Jorge RN RN ar8 Corrections: (The following items were deleted from the chart) 15:39 15:39 Extremity Venous Uni Ltd+[email or web address] ordered. EDMS EDMS 15:39 15:39 Lower Extremity Artery Uni Ltd+US.RAD.[email or web address] ordered. EDMS EDMS 15:39 15:39 Foot Right 3 View+RAD.[email or web address].BRZ ordered. EDMS EDMS
[2025-02-21] MEDS ORDERED: CEFTRIAXONE 1000 MG/VIAL ONE (17:35)
[2025-02-21] MEDS ORDERED: NA CHLORIDE 0.9% 100 ML ONE (17:35)
[2025-02-22 01:13] VITALS: O2SAT 97
[2025-02-22 01:15] VITALS: TEMP 98.4
[2025-02-22 01:16] VITALS: BP 160/85
== END 2025-02-21 18:04 | disposition home or self-care (01) ==
LOC: ER 14:52
DX: L03.115 Cellulitis of right lower limb (principal); L03.114 Cellulitis of left upper limb
CPT/HCPCS: 96365; 87040 ×2; 85025; 36415; 85610; 82947; 83605; 85730; 80053; 73630; 93926; 93971; 99284; J0696